=== PATIENT | female | born 1995 | race Hispanic/Latino ===

== ENCOUNTER 2023-10-07 00:47 | Emergency (ER) | payer SELFPAY ==
[2023-10-07 00:48] VITALS: BP 142/78
--- NOTE | 2023-10-07 01:15 | ED.GENMED ---
History of Present Illness
General
Chief Complaint: Weakness
Source: patient
Exam Limitations: none
Time Seen by Provider: 10/07/23 01:01
Travel History
Have you had any contact with someone who has COVID-19?: No
Do you have any symptoms of coronavirus? Fever > 100 degrees, chills, cough, shortness of breath, sore throat, loss of taste or smell, muscle aches, or headache?: No
History of Present Illness
History of Present Illness:
This is a 28 year old male that comes in with c/o body aches. States that a week ago he started with some SOB. States that he had some blurred vision but it went away. States that he then started 2-3 days ago with body aches for which he has taken
Advil with no relief. States that he had some pain in the left lower jaw and was unable to eat for the past couple of days. States that his right eye still felt a little off. States that his left side has always been a little weaker due to his MS.
States that he had chills, chest pain, SOB, slight headache. Denies any fever, abd pain, nausea, vomiting, diarrhea, dizziness, urinary burning.
Past History
Past History
ED Past Medical History: Asthma and Other (MS since age 20 yo with visual changes that he wore glasses for to help correct)
ED Past Surgical History: Appendectomy
Social History
Tobacco: Non-smoker
Alcohol: Occasional
Personal:
Living: with family
Review of Systems
Review of Systems
All Other Systems: ROS reviewed and negative except as documented in HPI and ROS
Constitutional: Reports chills; Denies fever
EENT: Reports other (Left lower jaw pain)
Respiratory: Reports trouble breathing; Denies cough
Cardiac: Reports chest pain
ABD/GI: Reports no symptoms; Denies abdominal pain, nausea, vomiting or diarrhea
: Reports no symptoms; Denies dysuria, frequency or urgency
Musculoskeletal: Reports other (Body aches)
Skin: Reports no symptoms
Neurological: Reports headache; Denies dizzy
Psychiatric: Reports no symptoms
Phy Exam
General Physical Exam
General Presentation: no apparent distress
General age: appears stated age
General Skin: warm and dry
General Habitus: normal
General Mental: alert
General Hydration: appears well hydrated
ENT Exam
ENT Exam: TM's normal, pharynx normal, neck supple and other (Slight redness along the left lower gum line, Negative for any swelling)
Eye Exam
Eye Exam: EOMI
Cardiovascular Exam
Cardiovascular Exam: regular rate/rhythm, no edema, no murmur and normal peripheral pulses
Pulmonary Exam
Pulmonary Exam: lungs clear, no respiratory distress, no rales, chest non tender, no crackles, no rhonchi, no wheezing and no cough
Gastrointestinal Exam
Gastrointestinal Exam: normal bowel sounds, non tender, soft, no organomegaly, no pulsatile mass and non distended
NIH Stroke Score
Level of Consciousness: 0 - Alert
LOC questions: 0-Answers both correctly
LOC Commands: 0-Performs both correctly
Best Gaze: 0-Normal
Visual Casiano: 0=Normal, no visual loss
Facial palsy: 0=Normal, symmetrical
Motor - Right Arm: 0=No drift 10 seconds
Motor - Left Arm: 0=No drift 10 seconds
Motor - Right Le-No drift 5 seconds
Motor - Left Le-No drift 5 seconds
Limb Ataxia: 0-Absent
Sensation: 0-Normal
Best Language: 0-No aphasia
Dysarthria: 0-Normal
Extinction and Inattention: 0-No abnormality
Total Score:: 0
Musculoskeletal Exam
Musculoskeletal Exam: full ROM, no edema and other (Hand grasp slightly decreased left , Push pulls equal)
Skin Exam
Skin Exam: normal color, warm/dry, no rash and no petechia
Psychiatric Exam
Psychiatric Exam: normal mood/affect
Course
Orders/Labs/Results
Orders:
Orders
10/07/23 01:13
Dexamethasone Sod Phosphate [Decadron] 20 mg IV NOW STA
10/07/23 01:15
Electrocardiogram (*1) Urgent
Reason for Study: Chest Pain
EKG- Treatment ONCE
CR Chest - 2 Views Urgent
Comment:
Reason For Exam: sob
10/07/23 01:22
COVID-19 Antigen Urgent
Source: Nasal Swab
Complete Blood Count/With Diff Urgent
Comprehensive Metabolic Panel Urgent
Sed Rate [Erythrocyte Sed Rate] Urgent
Troponin I Urgent
Abnormal Lab Results
10/07/23
01:22
WBC 10.9 H 10^3/uL
(4.8-10.8)
Absolute Lymphs (auto) 4.4 H 10^3/uL
(1.2-3.4)
Absolute Monos (auto) 0.8 H 10^3/uL
(0.1-0.6)
Glucose 132 H mg/dl
(70-99)
ALT 51 H U/L
(0-35)
10/07/23 01:22
10/07/23 01:22
WBC very slightly elevated. Glucose nonfasting. ALT elevated. COVID negative. Sed rate normal at 3, Troponin <0.012
Vital Signs
Initial and Last Documented VS:
Initial Vital Signs
Temp Pulse Resp BP Pulse Ox
98.6 F 74 22 142/78 98
10/07/23 00:48 10/07/23 00:48 10/07/23 00:48 10/07/23 00:48 10/07/23 00:48
Last Documented Vital Signs
Temp Pulse Resp BP Pulse Ox
98.6 F 74 22 142/78 98
10/07/23 00:48 10/07/23 00:48 10/07/23 00:48 10/07/23 00:48 10/07/23 00:48
Chemical Engineer consulted with Physician
Chemical Engineer consulted with physician?: Yes
Name of Physician Consulted: Dr. Fowler
MDM/Problems Addressed
Differential Diagnosis Includes:
MS flare, COVID,
MDM/Problems Addressed:
This is a 28 year old male that comes in with c/o possible MS flare. States that a week ago he started with SOB and blurred vision. States that this went away. Then he started with body aches and he tried for 2-3 days Advil without any relief.
States that he has some pain in the left lower jaw and he has not been eating. States that his right eye still is a little off.
Will check labs, chest x-ray, and give steroids
Back into see patient. States that he is feeling better. Explained that his blood work shows that his Blood sugar is a little elevated and his ALT is elevated. COVID is negative. Chest x-ray is normal and his ECG and Troponin are normal. Explained
to patient that he needs to increase his water intake. Patient to follow up with the Neurologist and get a family doctor. Patient will be place on steroids for the next 5 days to help decrease any inflammation. Patient to return with any concerns .
Chronic conditions affecting care:
MS
Acute Exacerbation and/or Progression of Chronic Illness:
MS
*Radiology
Radiology exam reviewed: preliminary read by ED provider (Chest- Negative for active disease)
*Pulse Oximetry
Patient hypoxic: no
*EKG
Interpreted by ED Provider?: Yes
Heart Rate: 62
Rate: normal
Rhythm: sinus
Arrington: normal axis
Interval: normal interval
QRS Pattern: normal QRS
Ischemia: no ischemia
*Plastic Extrusion Operator Interpretation
Rate: Plastic Extrusion Operator- N/A
*Critical Care Note
Total Time (30-74mins, 75-104mins- exclusive of procedures): Not Applicable
ED Attending Note
-
Portions of this chart may have been created with voice recognition software.� Occasional wrong word or��sound alike� substitutions may have occurred due to the inherent limitations of voice recognition software.
Discharge Plan
Departure
Patient Disposition: Home (Routine Discharge)
Date of Disposition: 10/07/23
Time of Disposition: 02:12
Patient with high blood pressure during this ER visit?: Yes
Condition: Good
Covid-19: Negative COVID-19
Discharge Problem:
Multiple sclerosis exacerbation
Instructions: Multiple Sclerosis, Adult (DC), BLOOD PRESSURE
Prescriptions:
New
prednisone 20 mg tablet
40 mg PO DAILY Qty: 10 0RF
No Action
testosterone
0.2 ml SC WEEKLY
Referrals:
Tone Ivory MD [Active] - Follow up in 5-7 days
NONE,* [Family Provider] -
Activity Restrictions/Additional Instructions:
As discussed, your blood work shows that your blood sugar is a little elevated. Please increase your water intake to 8-8oz glasses daily. You are COVID negative and your chest x-ray is normal. Your ECG is normal along with your Troponin. This may be
an MS flare. You have been given IV steroids here and a prescription for steroids has been sent to your Pharmacy. Please take as directed. Follow up with the the Neurologist and our need to get a family doctor for further evaluation and follow up.
IF YOU HAVE INCREASED PAIN, WEAKNESS, OR YOU HAVE ANY OTHER CONCERNS PLEASE RETURN TO THE EMERGENCY ROOM.
Interventions
Interventions:
*Risk Screen - Suicide Last Done: 10/07/23 00:48
*Neglect/Abuse Screening Last Done: 10/07/23 00:48
Discharge Date and Time
Print Language: SAMOAN
[2023-10-07] MEDS: DECADRON 20 MG IV (01:36)
[2023-10-07 01:39] LABS: % Basophils 0.3 % (0-2); % Immature Granulocytes 0.3 % (0-0.5); % Lymphocytes 39.9 % (20.5-51.1); % Monocytes 6.9 % (1.7-9.3); % Neutrophils 50.6 % (42.2-75.2); Absolute Eosinophils 0.2 10^3/uL (0-0.7); Absolute Lymphocytes 4.4 10^3/uL (1.2-3.4); Absolute Monocytes 0.8 10^3/uL (0.1-0.6); Absolute Neutrophils 5.5 10^3/uL (1.4-6.5); Hematocrit 41.3 % (37.0-47.0); Hemoglobin 14.7 g/dL (12.0-16.0); Mean Corp Hgb Conc. 35.6 g/dL (33.0-37.0); Mean Corpuscular Hgb 29.2 pg (27.0-31.0); Mean Corpuscular Volume 81.9 fL (81.0-99.0); Mean Platelet Volume 10.3 fL (7.4-10.4); Nucleated Red Blood Cells % 0 %; Platelet Count 277 10^3/uL (130-400); Red Blood Cell Count 5.04 10^6/uL (4.20-5.40); Red Cell Dist. Width 13.2 % (11.5-14.5); White Blood Cell Count 10.9 10^3/uL (4.8-10.8)
[2023-10-07 01:42] VITALS: BMI 33.7
[2023-10-07 01:47] LABS: Erythrocyte Sed Rate 3 mm/hour (0-20)
[2023-10-07 01:54] LABS: ALT (SGPT) 51 U/L (0-35); AST (SGOT) 27 U/L (14-36); Albumin 4.4 g/dl (3.5-5.0); Alkaline Phosphatase 96 U/L (38-126); Blood Urea Nitrogen 14 mg/dl (7-17); COVID-19 Antigen Negative (Negative); Calcium 9.3 mg/dl (8.4-10.2); Carbon Dioxide 22 mmol/L (22-30); Chloride 105 mmol/L (98-107); Estimated Creatinine Clearance > 125 ml/min; Glucose 132 mg/dl (70-99); Sodium 136 mmol/L (135-145); Total Bilirubin 0.5 mg/dl (0.2-1.3); Total Protein 7.4 g/dl (6.3-8.2); eGFR > 60.00
[2023-10-07 01:56] VITALS: BP 111/63
[2023-10-07 02:00] VITALS: BP 120/76
[2023-10-07 02:02] LABS: Troponin I < 0.012 ng/ml
== END 2023-10-07 02:20 | disposition home or self-care (01) ==
LOC: EMR 00:47
PROVIDERS: Clinical Nurse Specialist Family Health; EMERGENCY PHYSICIAN Emergency Medicine
DX: R53.1 Weakness (principal); R06.02 Shortness of breath; J45.909 Unspecified asthma, uncomplicated; G35 Multiple sclerosis; Z90.49 Acquired absence of other specified parts of digestive tract
CPT/HCPCS: 99283; 96374; 71046; 80053; 84484; 85025; 85652; 87811; 93005

== ENCOUNTER 2023-12-11 04:02 | Inpatient (IN) | payer OTHER, SELFPAY ==
[2023-12-11] VITALS (10 sets, daily range): BP systolic 108–147; BP diastolic 63–90; PULSE 94–97; O2SAT 97; BMI 36.3; BMI 33.2
--- NOTE | 2023-12-11 01:09 | ED.GENMED ---
History of Present Illness
General
Chief Complaint: Visual Problem
Source: patient
Exam Limitations: none
Time Seen by Provider: 12/11/23 00:33
Travel History
Have you had any contact with someone who has COVID-19?: No
Do you have any symptoms of coronavirus? Fever > 100 degrees, chills, cough, shortness of breath, sore throat, loss of taste or smell, muscle aches, or headache?: No
History of Present Illness
History of Present Illness:
This is a 28 year old male that comes in with c/o visual changes. States that over the past 2 days he has visual changes. States that is is a mix of blurred and double ision. States that when he has an MS flare this is usually how it presents.
States that he was here in September and he was given steroids and this helped. States that he felt it was hard to take a deep breath. States that he has a headache with the dizziness. Denies any fever, chills, chest pain, SOB, abd pain, nausea,
vomiting, diarrhea, urinary burning.
Past History
Past History
ED Past Medical History: Asthma and Other (MS since age 20 yo with visual changes that he wore glasses for to help correct)
ED Past Surgical History: Appendectomy
Social History
Tobacco: Smoker
Alcohol: None
Personal:
Living: with family
Review of Systems
Review of Systems
All Other Systems: ROS reviewed and negative except as documented in HPI and ROS
Constitutional: Reports no symptoms; Denies fever or chills
EENT: Reports other (Visual changes)
Respiratory: Reports no symptoms; Denies cough or trouble breathing
Cardiac: Reports no symptoms; Denies chest pain
ABD/GI: Reports no symptoms; Denies abdominal pain, nausea, vomiting or diarrhea
: Reports no symptoms; Denies dysuria, frequency or urgency
Musculoskeletal: Reports no symptoms
Skin: Reports no symptoms
Neurological: Reports dizzy and headache
Psychiatric: Reports no symptoms
Phy Exam
General Physical Exam
General Presentation: no apparent distress
General age: appears stated age
General Skin: warm and dry
General Habitus: normal
General Mental: alert
General Hydration: appears well hydrated
ENT Exam
ENT Exam: TM's normal, pharynx normal and neck supple
Eye Exam
Eye Exam: PERRL and EOMI
Cardiovascular Exam
Cardiovascular Exam: regular rate/rhythm, no edema, no murmur and normal peripheral pulses
Pulmonary Exam
Pulmonary Exam: lungs clear, no respiratory distress, no rales, chest non tender, no crackles, no rhonchi, no wheezing and no cough
Gastrointestinal Exam
Gastrointestinal Exam: normal bowel sounds, non tender, soft, no organomegaly, no pulsatile mass and non distended
NIH Stroke Score
Level of Consciousness: 0 - Alert
LOC questions: 0-Answers both correctly
LOC Commands: 0-Performs both correctly
Best Gaze: 0-Normal
Visual Casiano: 1=Partial hemianopia (Left sided)
Facial palsy: 0=Normal, symmetrical
Motor - Right Arm: 0=No drift 10 seconds
Motor - Left Arm: 0=No drift 10 seconds
Motor - Right Le-No drift 5 seconds
Motor - Left Le-No drift 5 seconds
Limb Ataxia: 0-Absent
Sensation: 1-Mild loss (Left sided)
Best Language: 0-No aphasia
Dysarthria: 0-Normal
Extinction and Inattention: 0-No abnormality
Total Score:: 2
Musculoskeletal Exam
Musculoskeletal Exam: full ROM, no edema and other (Left hand grasp and push pulls weaker on the left. )
Skin Exam
Skin Exam: normal color, warm/dry, no rash and no petechia
Psychiatric Exam
Psychiatric Exam: normal mood/affect
Course
Orders/Labs/Results
Orders:
Orders
12/11/23 01:07
Dexamethasone Sod Phosphate [Decadron] 20 mg IV NOW STA
12/11/23 01:08
CT Head W/o Iv Contrast Urgent
Comment: History of MS
Reason For Exam: Visual changes.,Headache, dizziness
12/11/23 01:30
Complete Blood Count/With Diff Urgent
Comprehensive Metabolic Panel Urgent
Abnormal Lab Results
12/11/23
01:30
Absolute Lymphs (auto) 4.3 H 10^3/uL
(1.2-3.4)
Absolute Monos (auto) 0.7 H 10^3/uL
(0.1-0.6)
Creatinine 0.5 L mg/dL
(0.6-1.0)
Glucose 103 H mg/dl
(70-99)
ALT 51 H U/L
(0-35)
12/11/23 01:30
12/11/23 01:30
Glucose nonfasting. ALT mildly elevated.
Vital Signs
Initial and Last Documented VS:
Initial Vital Signs
Temp Pulse Resp BP Pulse Ox
99.1 F 55 16 128/78 99
12/11/23 00:17 12/11/23 00:17 12/11/23 00:17 12/11/23 00:17 12/11/23 00:17
Last Documented Vital Signs
Temp Pulse Resp BP Pulse Ox
99.1 F 55 16 128/78 99
12/11/23 00:17 12/11/23 00:12/11/23 00:17 12/11/23 00:17 12/11/23 00:17
MDM/Problems Addressed
Differential Diagnosis Includes:
MS flare,
MDM/Problems Addressed:
This is a 28 year old male that comes in with c/o visual changes. States that he is having a MS flare. States that he is unable to see a Neurologist until April. States that over the past 2 days he has visual changes. States that it is a mix of
seeing double or blurred.
Will get labs, CT head and give IV steroids.
Back into see patient. Explained that his blood work shows that his One liver enzyme is slightly elevated. CT is similar to prior CT. However, Explained to patient that with the visual changes and the left sided weakness it would be better to stay
in the hospital for further evaluation and see Neurologist. Will admit. Hospitalist notified.
Chronic conditions affecting care:
MS
Acute Exacerbation and/or Progression of Chronic Illness:
MS
*Radiology
Radiology exam reviewed: radiology read reviewed (CT head night hawk- Compared to 07/18/2022 No evidence of acute intracranial abnormality. NO evidenece of Hemorrhage or mass. Occasional periventricular regions of low attenuation likely patient's
known history of MS. IF indicated MRi has higher sensitivity in determining activity. Ventricles and) and other (CT cont- sulci are unremarkable. Bones are unremarkable Sinuses are unremarkable. )
*Pulse Oximetry
Patient hypoxic: no
*EKG
Interpreted by ED Provider?: NA
Rate: EKG- N/A
*Salesperson [employer]ra[employer] Interpretation
Rate: Salesperson [employer]ra[employer]- N/A
*Critical Care Note
Total Time (30-74mins, 75-104mins- exclusive of procedures): Not Applicable
ED Attending Note
-
Portions of this chart may have been created with voice recognition software.� Occasional wrong word or��sound alike� substitutions may have occurred due to the inherent limitations of voice recognition software.
Discharge Plan
Departure
Patient Disposition: Admit
Date of Disposition: 12/11/23
Time of Disposition: 02:43
Admit to: Med/Surg
Presentation/result/management discussed w/ accepting MD/DO: Hospitalist
Patient with high blood pressure during this ER visit?: No
Condition: Good
Covid-19: Not Applicable
Discharge Problem:
Multiple sclerosis exacerbation, Acute left-sided weakness, Vision changes
Prescriptions:
No Action
testosterone
0.2 ml SC WEEKLY
prednisone 20 mg tablet
40 mg PO DAILY Qty: 10 0RF
Referrals:
Yen Mejia DO [Family Provider] -
Interventions
Interventions:
*Risk Screen - Suicide Last Done: 12/11/23 00:17
*General Assessment Last Done: 12/11/23 00:17
*Neglect/Abuse Screening Last Done: 12/11/23 00:17
ED-EENT Assessment Last Done: 12/11/23 01:57
Discharge Date and Time
Print Language: LUXEMBOURGISH
[2023-12-11] MEDS: DECADRON 20 MG IV (01:23)
[2023-12-11 01:40] LABS: % Basophils 0.3 % (0-2); % Immature Granulocytes 0.4 % (0-0.5); % Lymphocytes 43.7 % (20.5-51.1); % Monocytes 6.7 % (1.7-9.3); % Neutrophils 45.9 % (42.2-75.2); Absolute Eosinophils 0.3 10^3/uL (0-0.7); Absolute Lymphocytes 4.3 10^3/uL (1.2-3.4); Absolute Monocytes 0.7 10^3/uL (0.1-0.6); Absolute Neutrophils 4.5 10^3/uL (1.4-6.5); Hematocrit 40.6 % (37.0-47.0); Hemoglobin 14.7 g/dL (12.0-16.0); Mean Corp Hgb Conc. 36.2 g/dL (33.0-37.0); Mean Corpuscular Hgb 29.6 pg (27.0-31.0); Mean Corpuscular Volume 81.9 fL (81.0-99.0); Nucleated Red Blood Cells % 0 %; Platelet Count 291 10^3/uL (130-400); Red Blood Cell Count 4.96 10^6/uL (4.20-5.40); Red Cell Dist. Width 12.7 % (11.5-14.5); White Blood Cell Count 9.8 10^3/uL (4.8-10.8)
[2023-12-11 02:11] LABS: ALT (SGPT) 51 U/L (0-35); AST (SGOT) 32 U/L (14-36); Albumin 4.6 g/dl (3.5-5.0); Alkaline Phosphatase 89 U/L (38-126); Blood Urea Nitrogen 15 mg/dl (7-17); Calcium 9.6 mg/dl (8.4-10.2); Carbon Dioxide 24 mmol/L (22-30); Chloride 105 mmol/L (98-107); Glucose 103 mg/dl (70-99); Potassium 4.1 mmol/L (3.5-5.1); Sodium 140 mmol/L (135-145); Total Bilirubin 0.5 mg/dl (0.2-1.3); Total Protein 7.5 g/dl (6.3-8.2); eGFR > 60.00
--- NOTE | 2023-12-11 03:02 | HPS.HSE ---
Family Physician
-
Family Physician: Yen Mejia DO
Chief Complaint
-
Altered vision
History of Present Illness
28M HX MS seen at ER for altered vision
Evaluation for altered vision:
- described as blurred and double vision simiar to prior episode og MS flare
- Received Hi dose steroids in September 2023 and helped
- Reports GARDINER with dizziness
- denied retro orbital pain
- No paresthesia or focal weakness
ROS
Denies any fever, chills, chest pain, SOB,
Medical History
Past Medical History
Past Medical History: Reports Other (multiple sclerosis)
Past Surgical History: Reports Other
Social History
Tobacco: Non-smoker
Alcohol: None
Family History
Family History: Not pertinent
Allergies / Home Medications
Allergies reflects when Allergies were last updated in [facility].
Home Medications with original date entered in [facility]
Allergy/Medication List:
Allergies
Allergy/AdvReac Type Severity Reaction Status Date / Time
No Known Allergies Allergy Verified 07/17/22 22:53
Home Medications
none - patient denies taking home medications
Review of Systems
-
Constitutional: Reports No Symptoms
EENT: Reports See HPI
Respiratory: Reports No Symptoms
Cardiac: Reports No Symptoms
Abdomen/GI: Reports No Symptoms
: Reports No Symptoms
Musculoskeletal: Reports No Symptoms
Skin: Reports No Symptoms
Neurological: Reports No Symptoms
Endocrine: Reports No Symptoms
Hematologic/Lymphatic: Reports No Symptoms
Psych: Reports No Symptoms
Physical Exam
Vital Signs
Vital Signs
Temp Pulse Resp BP Pulse Ox
99.1 F 55 16 128/78 99
12/11/23 00:17 12/11/23 00:17 12/11/23 00:17 12/11/23 00:17 12/11/23 00:17
Physical Exam
General: Well Developed and No Apparent Distress
HEENT: PERRLA and Other (right eye lateral vision loss)
Respiratory: Clear; No Wheezes
Cardiac: S1/S2 and Regular Rhythm
GI: Soft and Non Tender
Musculoskeletal: No Edema and Other (weakness in Lt both ext )
Skin: Warm and Dry; No Rash
Neuro: AO x 3 and Other (5/5 strength b/l upper and lower extremities, clear speech, no facial asymmetry )
Psych: Calm
Laboratory Results
-
12/11/23 01:30
12/11/23 01:30
Laboratory Results
Total Bilirubin 0.5 mg/dl (0.2-1.3) 12/11/23 01:30
AST 32 U/L (14-36) 12/11/23 01:30
ALT 51 U/L (0-35) H 12/11/23 01:30
Alkaline Phosphatase 89 U/L (38-126) 12/11/23 01:30
Data Reviewed
-
CT Scan: Report Reviewed by me
Lab Data: Labs Reviewed by me
Old Records: Reviewed
Impression/Plan
-
Reviewed VS: T 99.1 HR 55 BP 128/78 POx 99
NIH Stroke Score per ER evaluation
Visual Casiano: 1=Partial hemianopia (Left sided)
Sensation: 1-Mild loss (Left sided)
Total Score:: 2
Data
Unremarkable CBC
Unremarkable BMP
ALT 51
Unenhanced HCT : No acute pathology
07/18/22 MR Brain W/o & With Contrast
Slightly progressed white matter lesions in keeping with demyelinating lesions of multiple sclerosis, compared to prior exam 12/20/2018. No suspicious enhancement.
No acute intracranial process.
Last hospitalist admission: 07/18/22- 07/18/22 Dx: Complex migraine with aura.
ASSESSMENT & PLAN
Altered vision wit GARDINER with Lt sided paraesthesia and weakness in bith exts : MS flare >>> Complex migraine with aura.
Multiple sclerosis HX
- IV Decadron 20 mg x1 at ER
- MRI brain with and without contrast in AM
- Neurology consult
Chronic borderline elevated ALT
Otherwise unremarkable AST and TB
DVT Px: LMWH
Code: full
Ip MS
--- NOTE | 2023-12-11 08:06 | CON.NEURO4 ---
Consultation - Neurology 4
-
CONSULTING PHYSICIAN: Donald Walsh
REFERRING PHYSICIAN: Hospitalist
DICTATED BY: Donald Walsh
DATE/TIME OF REQUEST: 12/11/23
DATE/TIME OF CONSULTATION: 12/11/23
Reason for Consultation: Vision changes, history of multiple sclerosis as well as migraines
History of Present Illness:
Patient is a 28-year-old man presenting the hospital with vision changes seem to be predominantly blurred vision as well as double vision which was monocular occurring over the past couple of days. Has had some headache as well as some mild
photophobia and phonophobia recently.
Relates a history of diagnosis of multiple sclerosis around the age of 19 he has some chronic left arm and leg weakness and sensory changes a result of this. He had been on Copaxone for a number of years but due to insurance difficulties in moving
to [place] from [place] has not been able to be on any immune medications for multiple sclerosis.
Patient reports that the double vision is monocular and can happen with either eye covered.
Occasionally will get headaches which have photophobia which are mildly disabling.
Has seen a little bit of worsening of chronic left arm and leg weakness. Feeling some dizziness when standing up as well. No changes in bowel or bladder function
Past Medical History: Multiple sclerosis, migraine headaches
Surgical History: None
Family History: Non-contributory
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
Allergies: No known drug allergies
Review of Symptoms:
Patient denies any fever, headache, chest pain, shortness of breath, GI or symptoms.
Physical Exam:
Well-appearing young man no signs of head or neck trauma no acute distress eyes are clear oropharynx is clear, neck supple no masses heart rate regular breathing unlabored abdomen no tenderness, no lower extremity edema rash
Neurologic Examination:
The patient is awake, alert and oriented x 3. He is able to follow commands and answer questions appropriately. There is no aphasia or dysarthria. On cranial nerve assessment, pupils are 3 mm bilateral, round and reactive to light and
accommodation. Visual oleary are full. Vision 20/30 in left eye, 20/20 in right eye, no APD, Extraocular movements are intact no pain with EOM's. Facial sensations are intact and bilaterally symmetrical, there is no facial asymmetry. Hearing is
intact bilaterally to normal conversation volume. Tongue palate and uvula are midline. Sternocleidomastoid strengths are full bilaterally. Motor strengths are 5/5 bilateral upper and lower extremities on medical research [place] scale. There is no
drift or involuntary movement noted. Deep tendon reflexes are 2+ bilateral upper and lower extremities and Babinski is absent bilaterally. Sensations of pain, touch, temperature and vibration are intact and bilaterally symmetrical. There was no
extinction noted on double simultaneous stimulation. Coordination is intact by finger to nose bilaterally. Gait normal.
Neuro Imaging: MRI brain pending
Impressions
1. Migraine headache with visual auras felt most likely given patient's description of monocular diplopia along with headache and mild photophobia. Differential diagnosis would include brainstem lesion due to multiple sclerosis. Doubtful an
optic neuritis
2. History of multiple sclerosis previously on Copaxone not currently on any immune medications
Recommendations:
1. Sumatriptan 2 doses
2. Give one dose IV steroid
3. Check MRI brain with and without contrast
Discussed patient care with: Patient
[2023-12-11] MEDS: SOLU-MEDROL 258 MG IV (09:19)
[2023-12-11] MEDS: MAXALT MLT (ORALLY DISINTEGRATING) 10 MG PO ×2 (09:20→12:41)
--- NOTE | 2023-12-11 11:07 | W.PN.UPDATE ---
Update Note
Progress Note Update
Seen and examined independent of overnight physician. States remains with blurry vision. States appointments over the past 2 days. States usually happens during her MS flareup. States of ambulatory dysfunction at times at home.
General: Well Developed and No Apparent Distress
HEENT: PERRLA
Respiratory: Clear; No Wheezes
Cardiac: S1/S2 and Regular Rhythm
GI: Soft and Non Tender
Musculoskeletal: No Edema
Skin: Warm and Dry; No Rash
Neuro: AO x 3 and Other (5/5 strength b/l upper and lower extremities, clear speech, no facial asymmetry )
Psych: Calm
ASSESSMENT & PLAN
Altered vision wit GARDINER with Lt sided paraesthesia likely secondary to MS flareup versus low likelihood of complex migraine
Headache secondary to migraine
Multiple sclerosis HX
-20 mg of Decadron in the ER. Additional 1 g Solu-Medrol provided earlier today. Further steroids per neurology. Will probably need await further brain imaging with MRI to decide if needed further
- MRI brain with and without contrast
- Neurology consult
Chronic borderline elevated ALT
Otherwise unremarkable AST and TB
Vitamin D deficiency�continue with p.o. supplementation
DVT Px: LMWH
Code: full
--- NOTE | 2023-12-11 15:51 | CM ---
Patient off the unit in MRI; initial assessment completed with his significant otherRichard
Pharmacy verified: [facility], [address], [place]
Significant other reported that she, patient, and 11 year old daughter live in a one floor apartment ([address]); 11 steps up to enter apartment, railing present; bathroom has tub w/shower
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
SNF/Rehab/Home Health utilization history: none recently
Transportation: significant other will provide ride home
Plan: discharge to home when medically stable; CM will monitor for DC needs
[2023-12-11] MEDS: LOVENOX 40 MG SC (17:34)
[2023-12-12 05:25] VITALS: BMI 33.8
[2023-12-12 07:30] VITALS: BP 125/75
[2023-12-12 08:38] VITALS: BP 125/75
--- NOTE | 2023-12-12 09:00 | CON.NEURO4 ---
Addendum entered and electronically signed by Fernie Walsh MD 12/12/23 12:47:
I saw and evaluated the patient I reviewed the note by Silvana Gu agree the findings the following comments:
28-year-old man with a past ministry of multiple sclerosis and migraines presented to hospital with headache and vision changes and some mild left arm and leg weakness. Patient does feel improved still having a little bit of blurred vision in the
left eye minimal headache at this point no nausea, some mild photophobia present.
Neurologic examination significant only for some 20/30 vision in the left eye no APD, right eye is 20/20, visual oleary normal, otherwise neurologic exam normal.
MRI brain with without contrast reviewed there is no contrast-enhancing lesions there are numerous changes of demyelinating disease but no new active lesions
Assessment: Likely a migraine aura with visual changes, no evidence that this is a flare of multiple sclerosis
Recommendations
-Will provide home prescription of sumatriptan and I educated them on appropriate use of this and not to use more than 2 days of the week
-Would use Tylenol and ibuprofen for the next 3 days but no longer, get plenty of rest and I feel will improve from this migraine
-No further steroids
-No barriers to discharge from my POV
Original Note:
Documented by User: Silvana Guerrero NP 12/12/23 12:36
Consultation - Neurology 4
-
CONSULTING PHYSICIAN: Donald Walsh MD
REFERRING PHYSICIAN: Hospitalists/Dr. Ramos
DICTATED BY: NAINA Dean
DATE/TIME OF REQUEST: 12/11/23
DATE/TIME OF CONSULTATION: 12/12/23
Reason for Consultation: Vision changes
History of Present Illness:
This is a 28-year-old right-handed male with a PMH of multiple sclerosis who has presented to the hospital with report of headache, blurred vision, diplopia, and left-sided numbness/weakness. Patient has been previously evaluated by our inpatient
Neurology service twice in the past for similar symptoms, once in 2019 at which time MRI brain demonstrates an active lesion, and again in June 2022 at which time MRI brain was negative for any active lesions.
From previous evaluation by Dr. Ivory on 07/18/22:
'Right-handed
From my esteemed colleagues consultation in 2019:
23-year-old male with a known history of multiple sclerosis presents for evaluation for diminished sensation in his left lower extremity that he states began yesterday evening as well as severe weakness in the left lower extremity that began this
morning around 6 AM. He is so weak that he cannot walk. He states that he was diagnosed with multiple sclerosis at age 20. He was initially diagnosed after an episode of optic neuritis in the left eye. He subsequently had another episode of
optic neuritis, this time affecting the right eye. He states that he received steroids for these episodes in the past and tolerated the steroids well. He is been on Copaxone since these episodes and denies any further exacerbations while on the
med. He denies any known spinal cord lesions and states that the majority of his white matter lesions are in the left side of the brain. He has been living here for the past few months and was previously following with a neurologist in [place].
He has been out of Copaxone for 2 months.
Subsequent evaluation by MRI of the brain and entire spine with and without contrast in 2019 indicated enhancement left posterior and superior parietal lobe as well as the right anterolateral tortio.
Patient reports a complete normalization with above symptoms after the 2019 flare.
(07/18/22):
Reportedly, the patient had a recurrent episode of flare of multiple sclerosis treated at a local outside hospital 2 years ago. Flare at that time did receive treatment with IV steroids for left eye and left-sided sensory loss.
Patient is more likely to have exacerbation with heat exposure and stress.
The patient returned to this hospital's emergency department last evening due to progressive right eye blurred vision for the past week, worsening in the last 2 days. On the day of admission, there was worsening of vision on the right hemifield.
This problem was similar to loss of vision on the left eye. Headache started 7 days ago location frontal or posterior, throbbing, blurred vision with headache. Headache frequency monthly. Duration of 2-3 days with OTC medication. Associated with
headaches are photophobia, phonophobia, no nausea, no emesis. Patient's headache is described as currently a 5 out of 10 in intensity.
Glatiramer acetate has not been restarted in the past 4 years.
Since hospitalization, vision has improved.'
Today (12/12/23), patient reports that he improved back to his baseline after his last hospitalization here in June 2022, but he does have chronic slight left-sided weakness and intermittent slurred speech at baseline since age 20. He reports
that he finally was able to get insurance and an outpatient appointment with Neurology Dr. Forde at [facility], but the earliest he could get in is April 2024. He is still not on any MS DMT and has not been on Copaxone in several years now. He
has never been on any DMTs other than Copaxone. He reports that the last time he was on oral steroids for 10 days he became severely depressed. Patient reports that four days ago on 12/08/23 he developed a mild headache associated with blurry vision
left eye>right eye and diplopia. As the week progressed, he reports that his chronic left-sided weakness/numbness, slurred speech, blurry vision, and diplopia worsened. He describes the diplopia as diagonal with the object on the left higher than
the object on the right. The diplopia did not resolve when he closed one eye or the other. He also noted mild left facial drooping. He has needed to furniture-reach or hold onto his when ambulating to avoid falling due to his left leg weakness.
On 12/11/23 he decided to come to the ER for evaluation when his symptoms still hadn't improved. CT head was obtained in the ER and is negative for any acute abnormalities. He endorsed a 6/10 headache in the ER and received Imitrex with some relief
of his headache and visual symptoms. Today (12/12/23), he reports that his right eye has returned to normal, his left eye vision is still mildly blurry, diplopia has resolved, and his left leg still feels mildly numb/weak. He denies any dizziness,
speech/swallow difficulty, nausea, chest pain, palpitations, and shortness of breath. He endorses photo/phonophobia. He reports having 1-2 migraine days per month associated with phono/photophobia but no nausea/vomiting. He has more mild headaches
4-5 days per week. He is taking Excedrin migraine 4-5x per week for his headaches, with relief. He has taken triptans in the past with relief, he has never been on any preventative headache medications.
Past Medical History: Multiple sclerosis, migraines, asthma
Surgical History: Appendectomy
Family History: Review and noncontributory.
Social History: Current smoker. Denies
Allergies: No known allergies.
Home Medications: See below.
Review of Symptoms:
Patient denies any fever, chest pain, shortness of breath, GI or symptoms.
�Per the HPI.�All systems are reviewed negative except above.
Physical Exam:
The patient is afebrile, abdomen is nondistended, breathing is unlabored, skin is warm and dry, no edema.
Neurologic Examination:
The patient is awake, alert and oriented x 3. He is able to follow commands and answer questions appropriately. There is no aphasia or dysarthria. On cranial nerve assessment, pupils are 3 mm bilateral, round and reactive to light and
accommodation. Visual oleary are full. Visual acuity right eye 20/20, left eye 20/30. Extraocular movements are intact. Facial sensations are intact and bilaterally symmetrical, there is no facial asymmetry. Hearing is intact bilaterally to normal
conversation volume. Tongue palate and uvula are midline. Sternocleidomastoid strengths are full bilaterally. Motor strengths are 5/5 right upper, 5-/5 left upper, 5/5 right lower, and 4+/5 left lower extremities on medical research [place] scale.
There is no drift or involuntary movement noted. Deep tendon reflexes are 1+ bilateral upper and lower extremities and Babinski is absent bilaterally. Sensations of touch, temperature and vibration are mildly reduced in the left face, arm, and leg.
There was no extinction noted on double simultaneous stimulation. Coordination is intact by finger to nose bilaterally.
Lab Results: See below.
Neuro Imaging:
1. CT head 12/11/23: There are no focal or acute intracranial abnormalities. There is mild diffuse focal atrophy.
2. MRI brain w/ and w/o contrast 12/11/23: Redemonstration of extensive demyelinating disease in the cerebral white matter, right cerebellar hemisphere, brachium pontis bilaterally, right mid torito. Appearance consistent with given clinical history of
multiple sclerosis. Slight progression since previous MRI. No enhancement by any of the lesions to suggest active demyelination.
Differentials for the patient's presentation include:
1. Migraine with aura likely exacerbating chronic MS symptoms.
2. MRI brain negative for active MS lesion.
Patient has the following risk factors for their symptoms: MS, migraines
Recommendations:
-Provide script for Imitrex 100mg PO as an outpatient, may repeat dose x1 in 2 hours if doesn't have complete GARDINER relief. Limit Imitrex usage to 2 days a week to avoid rebound headache.
-May also take tylenol/ibuprofen PRN headache for no more than 3 days for migraine relief.
-Do not see a role for further neurological imaging.
-Patient requesting a script for a rolling walker at home, has a cane already.
-Follow-up with outpatient Neurology appointment, on cancelation list for sooner appointment.
Discussed patient care with: Dr. Walsh, the patient, patient's spouse
Vital Signs and Labs
-
Vital Signs and Labs:
Vital Signs
Temp Pulse Resp BP Pulse Ox
97.9 F 95 19 125/75 97
12/12/23 07:30 12/12/23 07:30 12/12/23 07:30 12/12/23 07:30 12/12/23 07:30
Lab Results
12/12/23 08:23
12/12/23 08:23
Sodium 138 mmol/L (135-145) 12/12/23 08:23
Potassium 4.2 mmol/L (3.5-5.1) 12/12/23 08:23
BUN 14 mg/dl (7-17) 12/12/23 08:23
Glucose 145 mg/dl (70-99) H 12/12/23 08:23
Calcium 10.0 mg/dl (8.4-10.2) 12/12/23 08:23
Medications
-
Active Medications
Generic Name Dose Route Start Last Admin
Trade Name Freq PRN Reason Stop Dose Admin
Acetaminophen 650 mg 12/11/23 06:51
Acetaminophen 325 Mg Tablet PO 01/08/24 06:50
Q4HPRN PRN
mild pain/GARDINER/temp> 100.4F
Bisacodyl 10 mg 12/11/23 06:51
Bisacodyl 10 Mg Rectal Suppository RECTAL 01/08/24 06:50
T02ALKS PRN
constipation
Enoxaparin Sodium 40 mg 12/11/23 18:00 12/11/23 17:34
Enoxaparin Sodium 40 Mg/0.4 Ml Syringe SC 01/08/24 17:59 40 mg
QPM TABITHA Administration
Polyethylene Glycol 17 grams 12/11/23 06:51
Polyethylene Glycol Powder 17 Grams Packet PO 01/08/24 06:50
DAILYPRN PRN
constipation
Senna/Docusate Sodium 1 tablet 12/11/23 06:51
Docusate W/Senna (Sultana-Colace) Tablet PO 01/08/24 06:50
BIDPRN PRN
constipation
Sodium Chloride 0 flush 12/11/23 07:00
Sodium Chloride 0.9% (Flush) Syringe IV 01/08/24 06:59
PER PROTOCOL TABITHA
Sodium Chloride 0 flush 12/11/23 09:00
Sodium Chloride 0.9% (Flush) Syringe IV 01/08/24 08:59
PER PROTOCOL TABITHA
Home Medications
�Medication �Instructions �Recorded
cholecalciferol (vitamin D3) 25 25 mcg PO DAILY Supplement 12/11/23
mcg (1,000 unit) tablet (Vitamin
D3)
cyanocobalamin (vitamin B-12) 500 500 mcg PO DAILY Supplement 12/11/23
mcg tablet
ferrous sulfate 324 mg (65 mg 324 mg PO DAILY Supplement 12/11/23
iron) tablet,delayed release
ibuprofen 200 mg tablet (Advil) 200 mg PO Q6HPRN PRN mild pain 12/11/23
testosterone cypionate 200 mg/mL 100 mg IM SA Hormonal Agent 12/11/23
intramuscular oil

Documented by User: Fernie Walsh MD 12/12/23 12:43
Consultation - Neurology 4
-
Neurology progress note
History of Present Illness:
This is a 28-year-old right-handed male with a PMH of multiple sclerosis who has presented to the hospital with report of headache, blurred vision, diplopia, and left-sided numbness/weakness. Patient has been previously evaluated by our inpatient
Neurology service twice in the past for similar symptoms, once in 2018 at which time MRI brain demonstrates an active lesion, and again in June 2022 at which time MRI brain was negative for any active lesions.
Physical Exam:
The patient is afebrile, abdomen is nondistended, breathing is unlabored, skin is warm and dry, no edema.
Neurologic Examination:
The patient is awake, alert and oriented x 3. He is able to follow commands and answer questions appropriately. There is no aphasia or dysarthria. On cranial nerve assessment, pupils are 3 mm bilateral, round and reactive to light and
accommodation. Visual oleary are full. Visual acuity right eye 20/20, left eye 20/30. Extraocular movements are intact. Facial sensations are intact and bilaterally symmetrical, there is no facial asymmetry. Hearing is intact bilaterally to normal
conversation volume. Tongue palate and uvula are midline. Sternocleidomastoid strengths are full bilaterally. Motor strengths are 5/5 right upper, 5-/5 left upper, 5/5 right lower, and 4+/5 left lower extremities on medical research [place] scale.
There is no drift or involuntary movement noted. Deep tendon reflexes are 1+ bilateral upper and lower extremities and Babinski is absent bilaterally. Sensations of touch, temperature and vibration are mildly reduced in the left face, arm, and leg.
There was no extinction noted on double simultaneous stimulation. Coordination is intact by finger to nose bilaterally.
Lab Results: See below.
Neuro Imaging:
1. CT head 12/11/23: There are no focal or acute intracranial abnormalities. There is mild diffuse focal atrophy.
2. MRI brain w/ and w/o contrast 12/11/23: Redemonstration of extensive demyelinating disease in the cerebral white matter, right cerebellar hemisphere, brachium pontis bilaterally, right mid torito. Appearance consistent with given clinical history of
multiple sclerosis. Slight progression since previous MRI. No enhancement by any of the lesions to suggest active demyelination.
Differentials for the patient's presentation include:
1. Migraine with aura likely exacerbating chronic MS symptoms.
2. MRI brain negative for active MS lesion.
Patient has the following risk factors for their symptoms: MS, migraines
Recommendations:
-Provide script for Imitrex 100mg PO as an outpatient, may repeat dose x1 in 2 hours if doesn't have complete GARDINER relief. Limit Imitrex usage to 2 days a week to avoid rebound headache.
-May also take tylenol/ibuprofen PRN headache for no more than 3 days for migraine relief.
-Do not see a role for further neurological imaging.
-Patient requesting a script for a rolling walker at home, has a cane already.
-Follow-up with outpatient Neurology appointment, on cancelation list for sooner appointment.
Discussed patient care with: Dr. Walsh, the patient, patient's spouse
[2023-12-12 09:08] LABS: % Basophils 0.2 % (0-2); % Immature Granulocytes 0.7 % (0-0.5); % Neutrophils 84.1 % (42.2-75.2); Absolute Immature Granulocytes 0.1 10^3/uL (0-0.05); Absolute Lymphocytes 2.1 10^3/uL (1.2-3.4); Absolute Monocytes 0.8 10^3/uL (0.1-0.6); Absolute Neutrophils 15.8 10^3/uL (1.4-6.5); Hematocrit 43.6 % (37.0-47.0); Hemoglobin 15.2 g/dL (12.0-16.0); Mean Corp Hgb Conc. 34.9 g/dL (33.0-37.0); Mean Corpuscular Hgb 29.3 pg (27.0-31.0); Mean Platelet Volume 10.4 fL (7.4-10.4); Nucleated Red Blood Cells % 0 %; Platelet Count 341 10^3/uL (130-400); Red Blood Cell Count 5.19 10^6/uL (4.20-5.40); Red Cell Dist. Width 12.6 % (11.5-14.5); White Blood Cell Count 18.8 10^3/uL (4.8-10.8)
--- NOTE | 2023-12-12 09:21 | PTCARENOTE ---
Pt states left side sensation is better, left side weakness at baseline. No longer has double vision, left eye blurriness is improved. Continues with dizziness at times. Denies headache at present.
[2023-12-12 09:46] LABS: Blood Urea Nitrogen 14 mg/dl (7-17); Carbon Dioxide 23 mmol/L (22-30); Chloride 104 mmol/L (98-107); Estimated Creatinine Clearance > 125 ml/min; Glucose 145 mg/dl (70-99); Potassium 4.2 mmol/L (3.5-5.1); Sodium 138 mmol/L (135-145); eGFR > 60.00
[2023-12-12 10:03] LABS: Vitamin D, 25-OH*** 24.2 ng/mL (30-80)
--- NOTE | 2023-12-12 11:42 | W.PN.HOSP.TC ---
Today's Communication/Plan
-
OP neuro f/u
triptan prn
cm
Assessment / Plan
Assessment / Plan
General: Well Developed and No Apparent Distress
HEENT: PERRLA
Respiratory: Clear; No Wheezes
Cardiac: S1/S2 and Regular Rhythm
GI: Soft and Non Tender
Musculoskeletal: No Edema
Skin: Warm and Dry; No Rash
Neuro: AO x 3 and Other (5/5 strength b/l upper and lower extremities, clear speech, no facial asymmetry )
Psych: Calm
ASSESSMENT & PLAN
Altered vision wit GARDINER with Lt sided paraesthesia likely secondary to complex migraine
Headache secondary to migraine
Multiple sclerosis HX
-20 mg of Decadron in the ER. Additional 1 g Solu-Medrol provided on 12/10.
- MRI brain with and without contrast -Redemonstration of extensive demyelinating disease in the cerebral white matter, right cerebellar hemisphere, brachium pontis bilaterally, right mid torito. Appearance consistent with given clinical history of
multiple sclerosis. Slight progression since previous MRI. No enhancement by any of the lesions to suggest active demyelination.
-Triptan as needed.
- Neurology consult
Chronic borderline elevated ALT
Otherwise unremarkable AST and TB
Vitamin D deficiency�continue with p.o. supplementation
DVT Px: LMWH
Code: full
Discussed with neurology not highly concern for active MS flare. Okay for discharge.
Discussed with patient spouse at bedside in detail. Highly recommended to reschedule early appointment with neurology as outpatient.
More than 30 minutes spent in discharge including
Final examination of the patient
Summarizing hospital stay
Instructions for continuing care to all relevant caregivers
Preparation of discharge records, prescriptions, and referral forms
Total time spent (in minutes): 50
Anticipated Discharge: Today
Subjective/Interval History
-
Date of Service: December 12, 2023
Patient denies any right eye vision problems
States improvement in left eye vision. Denies any left eye vision loss. States some mild blurriness on the left lateral side.
Denies any headache or nausea or vomiting
Objective Data
-
Labs:
Laboratory Results
12/12/23
08:23
WBC 18.8 H
Hgb 15.2
Hct 43.6
Plt Count 341
Sodium 138
Potassium 4.2
Chloride 104
Carbon Dioxide 23
BUN 14
Creatinine 0.5 L
Glucose 145 H
Calcium 10.0
Vital Signs:
Vital Signs
Temp Pulse Resp BP Pulse Ox
97.9 F 95 19 125/75 97
12/12/23 07:30 12/12/23 07:30 12/12/23 07:30 12/12/23 07:30 12/12/23 07:30
I&O
12/11/23 12/12/23 12/13/23
06:59 06:59 06:59
Intake Total 720 / 720
Balance 720 / 720
[2023-12-12] MEDS: TYLENOL 650 MG PO (11:49)
[2023-12-12 12:20] VITALS: BP 122/83
--- NOTE | 2023-12-12 12:56 | W.DCSUMMARY ---
Discharge Summary
Discharge Data
Date of Admission: 12/11/23
Date of Discharge: 12/12/23
-
Pending Results: No
Hospital Course
28-year-old biological female with past medical history of MS, migraine who is presented with vision problems/vision loss. Patient underwent CT of the head on admission which is negative for acute stroke. Patient received Decadron in the ER.
Patient was eval by neurology. Patient underwent MRI of the brain with and without contrast Redemonstration of extensive demyelinating disease in the cerebral white matter, right cerebellar hemisphere, brachium pontis bilaterally, right mid torito.
Appearance consistent with given clinical history of multiple sclerosis. Slight progression since previous MRI. No enhancement by any of the lesions to suggest active demyelination. Patient also received 1 g of steroids. Patient symptomology not
consistent with MS flareup and more in line with complex migraine. Patient headache resolved. Improvement in vision. Right eye vision completely resolved. Left eye vision with only mild blurriness. Recommended outpatient ophthalmology
follow-up. Patient was highly recommended to follow-up with neurology as outpatient for maintenance treatment for MS and complex migraine. This was also discussed with patient and spouse verbalized understanding. Patient was also eval by PT and
OT. Patient was also recommended not to drive until improvement in vision. Spouse stated she will drive patient.
Discharge Plan
-
Patient Disposition: Home (Routine Discharge)
Discharge Diagnosis/Procedures: Blurry vision secondary to complex migraine flareup
Condition: Fair
Diet: As tolerated
Activity: With assistance and As tolerated
Driving Restrictions: Not until seen by your Dr
Activity Restrictions/Additional Instructions:
Limit Sumatriptan usage to 2 days a week to avoid rebound headache.
Referrals:
Tone Ivory MD [Active] - None
Ashley Cameron MD [Active] - (call to make appt. )
Yen Mejia, [Family Provider] - in less than 1 week
Prescriptions:
New
sumatriptan succinate 50 mg tablet
50 mg PO ONCE PRN (Reason: migraine headache) Qty: 14 0RF
Continued
cyanocobalamin (vitamin B-12) 500 mcg Tablet
500 mcg PO DAILY
ibuprofen [Advil] 200 mg Tablet
200 mg PO Q6HPRN PRN (Reason: mild pain)
testosterone cypionate 200 mg/mL Oil
100 mg IM SA
Patient Comments:
last filled on 10/07/23 at [facility] pharmacy for 2 vials
cholecalciferol (vitamin D3) [Vitamin D3] 25 mcg (1,000 unit) Tablet
25 mcg PO DAILY
ferrous sulfate 324 mg (65 mg iron) Tablet,Delayed Release (Dr/Ec)
324 mg PO DAILY
Discharge Orders:
Discharge Patient (As Directed); Ordered 12/12/23
Ordered By: Pablo Ramos
Discharge Date and Time
Print Language: TURKMEN
--- NOTE | 2023-12-12 14:11 | CM ---
Patient seen bedside.
Patient requested information re neurologists in the area that take his insurance.
TC to [facility], spoke with provider services.
3 doctors names and phone given: Dr Walsh, Dr Ivory at [phone] located in [place], and Danielle Hutchins [phone] located in [place].
[facility] memeber service number and website provided for additional resources- [employer]
Plan: home no needs.
== END 2023-12-12 14:00 | disposition home or self-care (01) | DRG 103 ==
LOC: 4 WEST ACU 04:02
PROVIDERS: Clinical Nurse Specialist Family Health; ADMITTING PHYSICIAN Internal Medicine; ATTENDING PHYSICIAN Hospitalist; CONSULT PHYSICIAN Student in an Organized Health Care Education/Training Program; EMERGENCY PHYSICIAN Emergency Medicine; FAMILY PHYSICIAN Hospitalist
DX: G43.109 Migraine with aura, not intractable, without status migrainosus (principal); G35 Multiple sclerosis; J45.909 Unspecified asthma, uncomplicated; E55.9 Vitamin D deficiency, unspecified; H53.2 Diplopia; H53.149 Visual discomfort, unspecified; R29.810 Facial weakness; R20.0 Anesthesia of skin; R20.2 Paresthesia of skin; R47.81 Slurred speech; R74.01 Elevation of levels of liver transaminase levels
CPT/HCPCS: 70450; 70553; 80048; 80053; 82306; 85025; 96361; 96374; 97162; 97166; 97530; 97535; 99284; 99406; A9575

== ENCOUNTER 2024-01-08 01:03 | Emergency (ER) | payer OTHER, SELFPAY ==
[2024-01-08 01:08] VITALS: BP 128/71
--- NOTE | 2024-01-08 03:05 | ED.GENMED ---
History of Present Illness
General
Chief Complaint: Oral/Mouth Problem
Source: patient
Exam Limitations: none
Time Seen by Provider: 01/08/24 02:37
Nursing documentation reviewed up to this point in time: agreed with
History of Present Illness
History of Present Illness:
This is a 28-year-old transgender male maintained on testosterone who has history of MS, migraines with recent overnight hospitalization mid November with complaints of vision difficulty. CAT scan and MRI showed evidence of known MS mildly progressed
from previous imaging but vision issues thought to be more consistent with complex migraine and improved after IV steroids. Recommended follow-up with neurology as an outpatient. No recurrent episodes of vision difficulty but he presents tonight
with complaints of right lateral tongue pain and area of focal tongue ulceration that developed 2 days ago. Unsure if tongue has been rubbing on partially cracked tooth. No history of similar episodes in the past. He denies fever nor chills, no
sore throat, no difficulty swallowing.
Denies significant citrus nor other acidic food intake.
Past History
Past History
ED Past Medical History: Asthma, Other (MS since age 20 yo with visual changes that he wore glasses for to help correct), Other (Complex migraines) and Other (Transgender male)
ED Past Surgical History: Appendectomy
Social History
Tobacco: Smoker
Alcohol: None
Personal:
Living: with family
Family History
Family History: Other (Noncontributory)
Phy Exam
Physical Exam
Physical Exam:
GENERAL: 28-year-old transgender male appears his stated age. Awake and alert, pleasant, appears in no acute distress.
EYE: anicteric
NECK: Supple, nontender, no meningismus, no significant adenopathy.
ENT: posterior pharynx is clear, oral mucosa is moist. There is a superficial aphthous ulcer right mid lateral tongue with very minimal local soft tissue swelling. No erythema. There is no dental tenderness. No evidence of stomatitis. TM clear
b/l, nares patent.
CARDIAC: Regular rate and rhythm. no murmur.
LUNGS: Clear breath sounds bilaterally, no acute respiratory distress, no wheezes/rales/rhonchi
ABDOMEN: Soft, nondistended, without focal tenderness
NEUROLOGICAL: Alert and oriented x3, no focal neuro deficits. Gait is freeman and steady.
SKIN: Warm and dry, normal color, skin intact. No rash.
MUSCULOSKELETAL: No C/C/E. peripheral pulses are full and equal b/l. No palpable tenderness.
PSYCH: Normal and appropriate interaction.
Course
Vital Signs
Initial and Last Documented VS:
Initial Vital Signs
Temp Pulse Resp BP Pulse Ox
98.1 F 54 20 128/71 98
01/08/24 01:08 01/08/24 01:08 01/08/24 01:08 01/08/24 01:08 01/08/24 01:08
Last Documented Vital Signs
Temp Pulse Resp BP Pulse Ox
98.1 F 54 20 128/71 98
01/08/24 01:08 01/08/24 01:08 01/08/24 01:08 01/08/24 01:08 01/08/24 01:08
MDM/Problems Addressed
Differential Diagnosis Includes:
Patient presents with 2-day history of aphthous ulcer right lateral tongue that may be local friction related.
Aphthous ulcer is focally located on the tongue, no evidence of stomatitis nor dehydration.
Recommend supportive measures, avoiding spicy foods, avoiding citric acid, tart juices, tomatoes and tomato sauce.
Will initiate a course of Kenalog and Orabase to be used at bedtime.
Tylenol versus ibuprofen as needed for discomfort.
Prompt follow-up with PCP for recheck.
*Pulse Oximetry
Patient hypoxic: no
*Critical Care Note
Total Time (30-74mins, 75-104mins- exclusive of procedures): Not Applicable
ED Attending Note
-
Portions of this chart may have been created with voice recognition software.� Occasional wrong word or��sound alike� substitutions may have occurred due to the inherent limitations of voice recognition software.
Discharge Plan
Departure
Patient Disposition: Home (Routine Discharge)
Date of Disposition: 01/08/24
Time of Disposition: 03:06
Patient with high blood pressure during this ER visit?: No
Condition: Good
Discharge Problem:
Aphthous ulcer of tongue
Instructions: Mouth Sores (DC)
Prescriptions:
New
triamcinolone acetonide 0.1 % paste
1 applic dental HS PRN (Reason: mouth irritation) Qty: 5 0RF
No Action
cyanocobalamin (vitamin B-12) 500 mcg Tablet
500 mcg PO DAILY
ibuprofen [Advil] 200 mg Tablet
200 mg PO Q6HPRN PRN (Reason: mild pain)
testosterone cypionate 200 mg/mL Oil
100 mg IM SA
Patient Comments:
last filled on 10/07/23 at [facility] pharmacy for 2 vials
cholecalciferol (vitamin D3) [Vitamin D3] 25 mcg (1,000 unit) Tablet
25 mcg PO DAILY
ferrous sulfate 324 mg (65 mg iron) Tablet,Delayed Release (Dr/Ec)
324 mg PO DAILY
sumatriptan succinate 50 mg tablet
50 mg PO ONCE PRN (Reason: migraine headache) Qty: 14 0RF
Referrals:
PRIVATE,PHYSICIAN [Family Provider] - Call in 1-3 days for appt
Interventions
Interventions:
*Risk Screen - Suicide Last Done: 01/08/24 01:08
*General Assessment Last Done: 01/08/24 01:08
*Neglect/Abuse Screening Last Done: 01/08/24 01:08
ED- Fall Risk Assessment Last Done: 01/08/24 01:08
*ED COVID-19 Vaccine History Last Done: 01/08/24 01:08
Discharge Date and Time
Print Language: LATVIAN
== END 2024-01-08 04:29 | disposition home or self-care (01) ==
LOC: EMR 01:03
PROVIDERS: EMERGENCY PHYSICIAN Emergency Medicine
DX: K12.0 Recurrent oral aphthae (principal); F17.200 Nicotine dependence, unspecified, uncomplicated
CPT/HCPCS: 99282

== ENCOUNTER 2024-04-28 23:52 | Emergency (ER) | payer OTHER, SELFPAY ==
[2024-04-28 23:58] VITALS: BP 134/91
[2024-04-29 00:35] LABS: COVID-19 Antigen Negative (Negative)
[2024-04-29 01:35] VITALS: BMI 34.3
--- NOTE | 2024-04-29 02:18 | ED.GENMED ---
History of Present Illness
<TRISTIN Pineda - Last Filed: 04/29/24 05:28>
General
Chief Complaint: Cold/Flu/URI Symptoms
Source: patient and significant other
Time Seen by Provider: 04/29/24 02:06
History of Present Illness
History of Present Illness:
A 28-year-old trans masculinizing male with a past medical history of asthma and MS presents to the emergency department for upper URI symptoms and recurrent nosebleeds. Patient stated that upper respiratory symptoms such as sore throat, cough,
congestion, shortness of breath began 6 days ago. He admits to a fever on Friday of '100'.Patient also admits to a left-sided headache over the last week which he states is mild in comparison to his previous migraines. He also admits to new
onset of epistaxis over the last 2 days, occurring intermittently, which have all stopped after 6 to 10 minutes of nasal compression.
Past History
<TRISTIN Pineda - Last Filed: 04/29/24 05:28>
Past History
ED Past Medical History: Asthma, Other (MS since age 20 yo with visual changes that he wore glasses for to help correct), Other (Complex migraines) and Other (Transgender male)
ED Past Surgical History: Appendectomy
Social History
Tobacco: Smoker
Alcohol: None
Personal:
Living: with family
Family History
Family History: Other (Noncontributory)
Review of Systems
<TRISTIN Pineda - Last Filed: 04/29/24 05:28>
Review of Systems
Allergies reviewed?: Yes
Phy Exam
<TRISTIN Pineda - Last Filed: 04/29/24 05:28>
General Physical Exam
General Presentation: well appearing
General age: appears stated age
General Skin: warm
General Habitus: obese
General Mental: alert
ENT Exam
Additional ENT: No occult blood found within the nares
Eye Exam
Eye Exam: PERRL and EOMI
Eye Exam General: abnormal EOM: left (Difficulty with the right lateral and left lateral gazes)
Cardiovascular Exam
Cardiovascular Exam: regular rate/rhythm, no edema, no gallop, no murmur and normal peripheral pulses
Pulmonary Exam
Pulmonary Exam: lungs clear, no respiratory distress, no rales, no crackles, no rhonchi and no wheezing
Gastrointestinal Exam
Gastrointestinal Exam: normal bowel sounds, non tender, soft and non distended
Neurological Exam
Neurological Exam: alert and oriented x3
Musculoskeletal Exam
Musculoskeletal Exam: full ROM
Course
<[facility] yLn [facility] - Last Filed: 04/29/24 05:28>
Orders/Labs/Results
Orders:
Orders
04/29/24 00:02
Electrocardiogram (*1) Urgent
Reason for Study: Shortness of Breath
04/29/24 00:03
EKG- Treatment ONCE
04/29/24 00:08
COVID-19 Antigen Urgent
Source: Nasal Swab
Influenza A+B Rapid Molecular Urgent
ELZA Source: Nasal Swab
Specimen Description:
Vital Signs
Initial and Last Documented VS:
Initial Vital Signs
Temp Pulse Resp BP Pulse Ox
98.2 F 68 18 134/91 98
04/28/24 23:58 04/28/24 23:58 04/28/24 23:58 04/28/24 23:58 04/28/24 23:58
Last Documented Vital Signs
Temp Pulse Resp BP Pulse Ox
98.0 F 64 17 102/86 98
04/29/24 01:35 04/29/24 04:00 04/29/24 04:00 04/29/24 04:00 04/29/24 04:00
<Martha Pavon DO - Last Filed: 04/29/24 03:53>
Orders/Labs/Results
Orders:
Orders
04/29/24 00:02
Electrocardiogram (*1) Urgent
Reason for Study: Shortness of Breath
04/29/24 00:03
EKG- Treatment ONCE
04/29/24 00:08
COVID-19 Antigen Urgent
Source: Nasal Swab
Influenza A+B Rapid Molecular Urgent
ELZA Source: Nasal Swab
Specimen Description:
Vital Signs
Initial and Last Documented VS:
Initial Vital Signs
Temp Pulse Resp BP Pulse Ox
98.2 F 68 18 134/91 98
04/28/24 23:58 04/28/24 23:58 04/28/24 23:58 04/28/24 23:58 04/28/24 23:58
Last Documented Vital Signs
Temp Pulse Resp BP Pulse Ox
98.0 F 64 17 102/86 98
04/29/24 01:35 04/29/24 04:00 04/29/24 04:00 04/29/24 04:00 04/29/24 04:00
Procedures
<Martha Pavon DO - Last Filed: 04/29/24 03:53>
Nosebleed
Drug treatment: Lidocaine and Epinephrine
Treatment: Silver nitrate cautery
Post treatment bleeding: none- good control
<TRISTIN Pineda - Last Filed: 04/29/24 05:28>
MDM/Problems Addressed
Differential Diagnosis Includes:
Anterior epistaxis, MS flare, viral syndrome
<TRISTIN Pineda - Last Filed: 04/29/24 05:28>
*Critical Care Note
Total Time (30-74mins, 75-104mins- exclusive of procedures): Not Applicable
<TRISTIN Pineda - Last Filed: 04/29/24 05:28>
Update Note
Update Note:
04/29/2024 0306 AM : STPA: Patient sneezed and begin bleeding from the ear right praveena. Dr. Pavon initiated topical anesthetic preparation for silver nitrate cautery.
ED Attending Note
<TRISTIN Pineda - Last Filed: 04/29/24 05:28>
-
Portions of this chart may have been created with voice recognition software.� Occasional wrong word or��sound alike� substitutions may have occurred due to the inherent limitations of voice recognition software.
<Martha Pavon DO - Last Filed: 04/29/24 03:53>
ED Attending Note
Patient seen and examined by attending physician: Yes
I performed the substantive portion of visit, reviewed & personally made and approve the management plan that is documented in note by myself or JACEK.: Yes
ED Attending Note:
This is a 28-year-old transgender male with history of MS, previously maintained on Copaxone with last dose 2018. Has neglected follow-up with neurology since that time but was briefly hospitalized November of this year with concern for potential MS
flare. MRI consistent with demyelinating disease but no evidence of new/active lesions. Thought was patient had migraine with visual changes.
He complains of 6-day history of URI symptoms, cough, nasal congestion, sore throat, intermittent low-grade fever and since Friday, 2 and half days ago he has had intermittent right nostril epistaxis which comes on generally after blowing his nose
or with sneezing. Right nostril epistaxis promptly resolves with brief local pressure.
He has history of asthma generally well-controlled. Not maintained on inhaled corticosteroids and has not needed rescue inhaler.
He has had intermittent left eye blurriness and admits to some chronic vision difficulty in his left eye. Unsure if he is having an MS flare.
No recent travel.
No close contacts with similar symptoms.
He reportedly has an appointment with neurology scheduled for next month.
GENERAL: 28-year-old transgender male appears his stated age. Bright, alert, pleasant, appears in no acute distress. Rare brief dry cough is noted. No respiratory distress, able to speak in full sentences. is accompanying.
EYE: pupils equal and reactive. anicteric
NECK: Supple, nontender, no meningismus, no significant adenopathy.
ENT: posterior pharynx is clear, oral mucosa is moist. TM clear b/l, scant blood right nostril with moderate erythema to the anterior septum right nostril. Left nostril is clear.
CARDIAC: Regular rate and rhythm. no murmur.
LUNGS: Clear breath sounds bilaterally, no acute respiratory distress, no wheezes/rales/rhonchi
ABDOMEN: Soft, nondistended, without focal tenderness
NEUROLOGICAL: Alert and oriented x3, no focal neuro deficits. No focal neurodeficits. Gait is steady.
SKIN: Warm and dry, normal color, skin intact. No rash.
MUSCULOSKELETAL: No C/C/E. peripheral pulses are full and equal b/l. No palpable tenderness.
PSYCH: Normal and appropriate interaction.
Concern for viral URI. Exacerbation of asthma. No evidence of neurologic deficit. Patient has had chronic vision difficulty with left eye. At this point no convincing evidence of MS exacerbation.
He has had brief episode of right nostril epistaxis just prior to my initial exam.
COVID and influenza testing are negative.
EKG is unremarkable, unchanged from previous, September 2023.
Will plan to cauterize right anterior septum.
Will initiate short course of prednisone for viral URI. Prior short courses of prednisone have been helpful for left eye vision issues as well.
At this point no indication for laboratory studies nor chest x-ray. Lungs are clear to auscultation.
Encouraged prompt follow-up with PCP as well as neurology.
Discharge Plan
Departure
Patient Disposition: Home (Routine Discharge)
Date of Disposition: 04/29/24
Time of Disposition: 03:53
Patient with high blood pressure during this ER visit?: No
Condition: Good
Discharge Problem:
acute viral upper respiratory infection, Acute anterior epistaxis
Instructions: Viral Upper Respiratory Infection, Adult (DC), Nosebleeds ED
Prescriptions:
New
prednisone 10 mg Tablet
See Rx Instructions .ROUTE .COMPLEX Qty: 30 0RF
Rx Instructions:
Take By Mouth:
40 mg daily x3 days, 30 mg daily x3 days,
20 mg daily x3 days, 10 mg daily x3 days.
albuterol sulfate 90 mcg/actuation aerosol powdr breath activated
2 inh inhalation Q6H PRN (Reason: shortness of breath or wheezing) Qty: 1 0RF
No Action
cyanocobalamin (vitamin B-12) 500 mcg Tablet
500 mcg PO DAILY
ibuprofen [Advil] 200 mg Tablet
200 mg PO Q6HPRN PRN (Reason: mild pain)
testosterone cypionate 200 mg/mL Oil
100 mg IM SA
Patient Comments:
last filled on 10/07/23 at [facility] pharmacy for 2 vials
cholecalciferol (vitamin D3) [Vitamin D3] 25 mcg (1,000 unit) Tablet
25 mcg PO DAILY
ferrous sulfate 324 mg (65 mg iron) Tablet,Delayed Release (Dr/Ec)
324 mg PO DAILY
sumatriptan succinate 50 mg tablet
50 mg PO ONCE PRN (Reason: migraine headache) Qty: 14 0RF
triamcinolone acetonide 0.1 % paste
1 applic dental HS PRN (Reason: mouth irritation) Qty: 5 0RF
Referrals:
Andrew Mejia MD [Family Provider] - Call in 1-3 days for appt
Activity Restrictions/Additional Instructions:
Over the next 3 days, no blowing, no sniffing, no picking your nose!! Thereafter, you can start saline nasal spray such as Penrose or Stearns, 2 sprays each nostril twice daily.
Follow-up with your primary care physician for recheck as well as follow-up with neurology as planned.
Interventions
Interventions:
*Risk Screen - Suicide Last Done: 04/28/24 23:54
*General Assessment Last Done: 04/29/24 01:35
*Neglect/Abuse Screening Last Done: 04/29/24 01:35
ED- Fall Risk Assessment Last Done: 04/29/24 01:35
*ED COVID-19 Vaccine History Last Done: 04/29/24 01:35
*Nursing Disposition Last Done: 04/29/24 04:26
ED- Pulmonary Assessment Last Done: 04/29/24 01:35
Discharge Date and Time
Discharge Date/Time: 04/29/24 04:27
Print Language: [id number]
[2024-04-29 04:00] VITALS: BP 102/86
== END 2024-04-29 04:27 | disposition home or self-care (01) ==
LOC: EMR 23:52
PROVIDERS: EMERGENCY PHYSICIAN Emergency Medicine; FAMILY PHYSICIAN Internal Medicine
DX: R04.0 Epistaxis (principal); J06.9 Acute upper respiratory infection, unspecified; B97.89 Other viral agents as the cause of diseases classified elsewhere; Z11.52 Encounter for screening for COVID-19; J45.909 Unspecified asthma, uncomplicated; G35 Multiple sclerosis; G43.809 Other migraine, not intractable, without status migrainosus; F64.0 Transsexualism; F17.200 Nicotine dependence, unspecified, uncomplicated; H53.8 Other visual disturbances
CPT/HCPCS: 99283; 30901; 87502; 87811; 93005

== ENCOUNTER 2025-01-11 02:56 | Inpatient (IN) | payer OTHER, SELFPAY ==
[2025-01-10 19:26] VITALS: BP 159/85
[2025-01-10 20:08] LABS: Hematocrit 43.4 % (37.0-47.0); Hemoglobin 16.0 g/dL (12.0-16.0); Mean Corp Hgb Conc. 36.9 g/dL (33.0-37.0); Mean Corpuscular Volume 81.7 fL (81.0-99.0); Nucleated Red Blood Cells % 0 %; Platelet Count 314 10^3/uL (130-400); Red Cell Dist. Width 12.1 % (11.5-14.5)
--- NOTE | 2025-01-10 21:09 | ED.GENMED ---
History of Present Illness
General
Chief Complaint: Visual Problem
Time Seen by Provider: 01/10/25 21:09
History of Present Illness
History of Present Illness:
TIME OF INITIAL EVALUATION
- 9:15 PM
REVIEW OF OLD RECORDS
- The patient has history of MS. the patient was admitted in November 2023 and was given IV steroids for vision changes however was felt symptoms at that time related to complex migraine
CHIEF COMPLAINT(S)
Blurry vision and facial numbness on the left side.
HISTORY OF PRESENT ILLNESS
The patient, a 29-year-old male, presents with complaints of blurriness in the left eye and numbness on the left side of the face. He noticed that his vision is intermittently becoming blurry, with the left side being significantly affected. On
examination, his visual acuity is 20/70 in the left eye and 20/30 in the right eye. The patient described a sensation of numbness predominantly affecting the left side of the face. He reports having a history of multiple sclerosis (MS) and mentions
a past episode treated with intravenous steroids for what was initially thought to be a complex migraine.
Two days ago, the patient experienced what he initially believed to be a migraine. However, during todays drive, he experienced blurring of vision and reported seeing double, along with an episode of being cross-eyed. These symptoms, together with
his medical history, led to concerns about a possible MS exacerbation.
The patient recalls receiving migraine medications previously, which did not alleviate symptoms. He also mentioned a past hospital admission where he received IV steroids, which provided relief. A neurologist has previously been consulted for his
condition, and there was discussion of potential treatment with either IV or oral steroids. He recently switched to night shifts, raising concerns about fatigue contributing to his current symptoms. He feels his condition might be manageable as an
outpatient.
EXTERNAL RECORDS REVIEWED
Reviewed previous ER visit records indicating administration of intravenous steroids, with notes suggesting differential diagnoses of complex migraine versus MS exacerbation in the past.
PHYSICAL EXAM
- General: Well appearing in no distress
- HEENT: Moist oral mucosa, the patient does have some trouble tracking my finger with some disconjugate gaze at times
- Cardiovascular: No murmurs, borderline tachycardic heart rate, regular rhythm, No chest wall tenderness
- Pulmonary: No respiratory distress, breath sounds are clear and equal
- Abdomen: Soft with no peritoneal signs, no tenderness
- Neurologic: There may be some subtle left upper lid ptosis, although he reports some mild left sided weakness it is not clearly present on examination
- Psychiatric: Appropriate mental status, normal insight and judgement
- Extremities: Nontender, no edema, moves all extremities equally
- Skin: No rash, no lesions
CHRONIC MEDICAL CONDITIONS SIGNIFICANTLY AFFECTING CARE
Multiple Sclerosis
PLAN
1. Consult with the neurologist regarding the necessity of treating the patient with IV steroids versus oral steroids for the current exacerbation.
2. Consider outpatient management with potential prescription for oral steroids if appropriate, pending neurologists advice.
3. Continuous monitoring for any worsening of the symptoms, especially regarding vision and neurological status.
DIFFERENTIAL DIAGNOSIS
The Differential Diagnosis includes, in no particular order and is not limited to:
1. Multiple Sclerosis Exacerbation
2. Complex Migraine
3. Optic Neuritis
4. [place] Palsy
5. Stroke or Transient Ischemic Attack
6. Orbital Cellulitis
7. Idiopathic Intracranial Hypertension
8. Labyrinthitis
9. Myasthenia Gravis
10. Diabetes-related Retinopathy
SUMMARY OF ENCOUNTER
The patient, a 29-year-old male with a history of multiple sclerosis, was seen in the emergency department due to symptoms of blurry vision and facial numbness on the left side. These symptoms were concerning for a possible MS exacerbation. During
the visit, there was a desire to rule out a urinary tract infection as part of a comprehensive assessment. After discussion with neurology, the decision was made to initiate treatment with intravenous steroids due to the possibility of an MS
exacerbation. The plan includes hospital admission for the administration of IV steroids.
DISPOSITION
Admit
MANAGEMENT OF THE PATIENTS CARE WAS DISCUSSED WITH
Neurologist
PLAN
The patient will be admitted to the hospital for at least one night for the administration of intravenous steroids. A urine test will be conducted to rule out a urinary tract infection as part of a complete evaluation.
MEDICAL DECISION MAKING
- Number and Complexity of Problems Addressed: Chronic conditions affecting care include multiple sclerosis. Differential diagnosis includes multiple sclerosis exacerbation, complex migraine, optic neuritis, [place] palsy, stroke or transient ischemic
attack, orbital cellulitis, idiopathic intracranial hypertension, labyrinthitis, myasthenia gravis, and diabetes-related retinopathy.
- Data:
Category 1: Non-emergency department records reviewed, including patients outpatient pharmacy records.
Category 3: Discussion of management with a neurologist.
DIAGNOSIS
1. Multiple sclerosis exacerbation (G35)
2. Possible complex migraine (G43.909)
RADIOLOGY
- Not indicated
EKG
-
LABS
- CBC and chemistries unremarkable, urinalysis shows no sign of infection
UPDATE
- I discussed case with Dr. Ivory who recommends checking for UTI which she does not have, and recommends IV steroids. I have ordered IV Solu-Medrol 1 g.
Past History
Past History
ED Past Medical History: Asthma, Other (MS since age 20 yo with visual changes that he wore glasses for to help correct), Other (Complex migraines) and Other (Transgender male)
ED Past Surgical History: Appendectomy
Social History
Tobacco: Smoker
Alcohol: None
Personal:
Living: with family
Family History
Family History: Other (Noncontributory)
Phy Exam
Physical Exam
Physical Exam:
See HPI
Course
Orders/Labs/Results
Orders:
Orders
01/10/25 19:44
CMP [Comprehensive Metabolic Panel] Urgent
Complete Blood Count/With Diff Urgent
01/10/25 22:07
Urinalysis Reflex To Culture Urgent
Date Specimen was Collected: 01/10/25
Time Specimen was Collected: 21:58
Urine Microscopic Reflex Cult Urgent
01/10/25 23:16
MethylPREDNISolone. [Solu-Medrol] 1,000 mg 0.9% Sodium Chloride 250 ml [Nss] 250 ml IV NOW
Abnormal Lab Results
01/10/25 01/10/25
19:44 22:07
Glucose 129 H mg/dl
(70-99)
ALT 47 H U/L
(0-35)
Total Protein 8.5 H g/dl
(6.3-8.2)
Albumin 5.1 H g/dl
(3.5-5.0)
Ur Occult Blood Reflex 1+ A
(Negative)
Urine Urobilinogen 2+ A
(Neg - 1+)
Urine Bacteria (Reflex) Few A
(Negative)
Urine Albumin (Reflex) 2+ A
(Neg - Trace)
01/10/25 19:44
01/10/25 19:44
Vital Signs
Initial and Last Documented VS:
Initial Vital Signs
Temp Pulse Resp BP Pulse Ox
36.9 C 102 20 159/85 98
01/10/25 19:26 01/10/25 19:26 01/10/25 19:26 01/10/25 19:26 01/10/25 19:26
Last Documented Vital Signs
Temp Pulse Resp BP Pulse Ox
36.9 C 102 20 159/85 98
01/10/25 19:26 01/10/25 19:26 01/10/25 19:26 01/10/25 19:26 01/10/25 21:11
*Pulse Oximetry
SaO2: 98
Oxygen Mode of Delivery: Room air
Patient hypoxic: no
*Critical Care Note
Total Time (30-74mins, 75-104mins- exclusive of procedures): Not Applicable
ED Attending Note
-
Portions of this chart may have been created with voice recognition software.� Occasional wrong word or��sound alike� substitutions may have occurred due to the inherent limitations of voice recognition software.
Discharge Plan
Departure
Patient Disposition: Admit
Date of Disposition: 01/10/25
Time of Disposition: 23:16
Presentation/result/management discussed w/ accepting MD/DO: Hospitalist
Discharge Problem:
Exacerbation of multiple sclerosis
Prescriptions:
No Action
cyanocobalamin (vitamin B-12) 500 mcg Tablet
500 mcg PO DAILY
ibuprofen [Advil] 200 mg Tablet
200 mg PO Q6HPRN PRN (Reason: mild pain)
testosterone cypionate 200 mg/mL Oil
100 mg IM SA
Patient Comments:
last filled on 10/07/23 at [facility] pharmacy for 2 vials
cholecalciferol (vitamin D3) [Vitamin D3] 25 mcg (1,000 unit) Tablet
25 mcg PO DAILY
ferrous sulfate 324 mg (65 mg iron) Tablet,Delayed Release (Dr/Ec)
324 mg PO DAILY
sumatriptan succinate 50 mg tablet
50 mg PO ONCE PRN (Reason: migraine headache) Qty: 14 0RF
triamcinolone acetonide 0.1 % paste
1 applic dental HS PRN (Reason: mouth irritation) Qty: 5 0RF
prednisone 10 mg Tablet
See Rx Instructions .ROUTE .COMPLEX Qty: 30 0RF
Rx Instructions:
Take By Mouth:
40 mg daily x3 days, 30 mg daily x3 days,
20 mg daily x3 days, 10 mg daily x3 days.
albuterol sulfate 90 mcg/actuation aerosol powdr breath activated
2 inh inhalation Q6H PRN (Reason: shortness of breath or wheezing) Qty: 1 0RF
Referrals:
UNKNOWN - PT DOES,NOT KNOW [Family Provider]
Interventions
Interventions:
*Risk Screen - Suicide Last Done: 01/10/25 19:26
*General Assessment Last Done: 01/10/25 19:26
*Neglect/Abuse Screening Last Done: 01/10/25 19:26
*ED COVID-19 Vaccine History Last Done: 01/10/25 19:26
ED- Neurological Assessment Last Done: 01/10/25 21:00
ED-EENT Assessment Last Done: 01/10/25 21:00
Discharge Date and Time
Print Language: SWEDISH
[2025-01-10 21:37] LABS: ALT (SGPT) 47 U/L (0-35); AST (SGOT) 24 U/L (14-36); Albumin 5.1 g/dl (3.5-5.0); Alkaline Phosphatase 67 U/L (38-126); Blood Urea Nitrogen 15 mg/dl (7-17); Calcium 9.8 mg/dl (8.4-10.2); Carbon Dioxide 25 mmol/L (22-30); Chloride 107 mmol/L (98-107); Glucose 129 mg/dl (70-99); Potassium 3.8 mmol/L (3.5-5.1); Total Protein 8.5 g/dl (6.3-8.2); eGFR > 60.00
[2025-01-10 21:45] LABS: Sodium 141 mmol/L (135-145)
[2025-01-10 22:58] LABS: Urine Character Clear (Clear)
[2025-01-10 23:16] LABS: Urine Red Blood Cell 0-2 /HPF (0-2); Urine White Cell 0-2 /HPF (0-5)
[2025-01-11] VITALS (8 sets, daily range): BP systolic 112–139; BP diastolic 63–83; PULSE 59–95; O2SAT 96–98; BMI 31.7
[2025-01-11] MEDS: SOLU-MEDROL 258 MG IV ×2 (00:05→17:25)
--- NOTE | 2025-01-11 02:47 | HPS.HSE ---
Family Physician
-
Family Physician: NOT KNOW UNKNOWN - PT DOES
Chief Complaint
-
Weakness / Vision Changes
History of Present Illness
Patient is a 29y M with PMH significant for MS who presents to ED complaining of L sided weakness, unsteady gait and vision changes. Patient states that his current symptoms began about 2 days ago. He reports feeling 'off balance' and notes
that his L side feels weaker than usual. 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 He rested at home for a time; however, his symptoms did not improve and he presented to the ED for
further evaluation.
Patient states that his current symptoms are typical of his MS flares.
He denies any recent illness: fevers / chills, cough, N/V/D, etc.
He was last hospitalized here about one year ago with similar complaints.
Patient was initially diagnosed with MS at the age of 19. He was previously on Copaxone when he lived in [place], but has not been able to arrange this here in [place].
He has been off of any maintenance medications for the past 6 years or so.
Medical History
Past Medical History
Past Medical History: Reports Other
Additional Past Medical History:
Multiple Sclerosis
Past Surgical History: Reports None
Social History
Tobacco: Non-smoker
Alcohol: None
Drug: None
Personal:
Living: With Family
Family History
Family History: Not pertinent
Allergies / Home Medications
Allergies reflects when Allergies were last updated in [facility].
Home Medications with original date entered in [facility]
Allergy/Medication List:
Allergies
Allergy/AdvReac Type Severity Reaction Status Date / Time
No Known Allergies Allergy Verified 04/29/24 00:02
Home Medications
No Meds [No Current Medications] 01/11/25
Review of Systems
-
History Source: Patient
Constitutional: Reports Fatigue; Denies Fever or Chills
EENT: Reports Other (Double vision / blurry vision)
Respiratory: Denies Cough or Trouble Breathing
Cardiac: Denies Chest Pain or Palpitations
Abdomen/GI: Denies Abdominal Pain, Nausea, Vomiting or Diarrhea
: Denies Dysuria or Frequency
Musculoskeletal: Denies Joint Pain or Edema
Neurological: Reports Dizzy and Weakness; Denies Headache or Numbness
Psych: Denies Depression or Anxiety
Physical Exam
Vital Signs
Vital Signs
Temp Pulse Resp BP Pulse Ox
98.4 F 86 18 118/81 98
01/10/25 19:26 01/11/25 00:08 01/11/25 00:08 01/11/25 00:08 01/11/25 00:08
Physical Exam
General: Other (29 y M in no acute distress.)
HEENT: Moist mucous membranes and PERRLA
Respiratory: Clear; No Wheezes, Rales or Rhonchi
Cardiac: S1/S2 and Regular Rhythm; No Murmur
GI: Soft, Non Tender, Non Distended and Normal Bowel Sounds
Musculoskeletal: No Clubbing, No Cyanosis and No Edema
Neuro: AO x 3 and Other (L weakness (UE and LE) compared to the R. Normal [id number] / [id number].)
Laboratory Results
-
01/10/25 19:44
01/10/25 19:44
Laboratory Results
Total Bilirubin 1.2 mg/dl (0.2-1.3) 01/10/25 19:44
AST 24 U/L (14-36) 01/10/25 19:44
ALT 47 U/L (0-35) H 01/10/25 19:44
Alkaline Phosphatase 67 U/L (38-126) 01/10/25 19:44
Impression/Plan
-
A/P: Patient is a 29y M with PMH significant for MS who presents to ED complaining of L sided weakness, unsteady gait and double-vision for the past 2 days or so.
MS Flare
- Admit for further evaluation and treatment.
- Solu-Medrol started in the ED - continue 1000mg daily.
- Neurology evaluation in the AM for additional recommendations.
- Defer duration of steroids +/- any repeat imaging to Neuro recs.
DVT Prophylaxis: SCDs
Code Status: Full
[2025-01-11 06:10] LABS: Hematocrit 43.3 % (37.0-47.0); Hemoglobin 15.5 g/dL (12.0-16.0); Mean Corp Hgb Conc. 35.8 g/dL (33.0-37.0); Mean Corpuscular Volume 83.1 fL (81.0-99.0); Platelet Count 286 10^3/uL (130-400); Red Cell Dist. Width 11.9 % (11.5-14.5)
[2025-01-11 07:59] LABS: Blood Urea Nitrogen 14 mg/dl (7-17); Calcium 9.5 mg/dl (8.4-10.2); Carbon Dioxide 21 mmol/L (22-30); Chloride 107 mmol/L (98-107); Estimated Creatinine Clearance > 125 ml/min; Glucose 188 mg/dl (70-99); Potassium 4.5 mmol/L (3.5-5.1); Sodium 139 mmol/L (135-145); eGFR > 60.00
--- NOTE | 2025-01-11 09:25 | PTOTSP ---
pt currently requires supervision to no assistance to complete simple ADLs, functional transfers, ambulation. pt using wall to steady self due to blurry vision. encouraged pt to complete what he can with LUE to increase strength as able. educated pt
on outpatient services if needed; pt verbalized understanding. no acute OT needs identified at this time, will sign off.
--- NOTE | 2025-01-11 10:04 | CON.NEURO ---
Addendum entered and electronically signed by Tone Ivory MD 01/11/25 17:24:
Studies reviewed.
I have personally examined the patient. 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
My addenda:
Awake, alert, interactive. No acute distress.
Speech intact.
Follows 2-step requests w/o difficulty. No tremor.
Extra-ocular movements grossly intact.
Facial movements full and symmetric. Hearing intact to normal conversational volume.
Normal UE movements bilaterally.
Neck: full ROM.
Chest: no dyspnea
Heart: no JVD
Ext: (-) Clubbing, (-) Cyanosis, (-) Edema
IMPRESSIONS/RECOMMENDATIONS:
Abrupt onset of worsening vision in the left eye with chronic left sided mild weakness
Unclear if this represents an acute multiple sclerosis exacerbation with worsening of optic neuritis or simply recrudescence of prior symptoms
check MRIs of brain and cervical spine
consider continuation of steroids after MRI imaging completed
D/W patient
All questions answered.
Will continue to follow pending results.
Original Note:
Documented by User: Debbie Hernandez NP 01/11/25 12:21
Neuro Assessment/Plan
Assessment
Patient is a 29y M with H significant for MS who presented to [facility] on 01/11/2025 complaining of L sided weakness, unsteady gait and vision changes.
Brain MRI 12/11/2023: Redemonstration of extensive demyelinating disease in the cerebral white matter, right cerebellar hemisphere, brachium pontis bilaterally, right mid torito. Appearance consistent with given clinical history of multiple sclerosis.
Slight progression since previous MRI. No enhancement by any of the lesions to suggest active demyelination.
Head CT 12/11/2023: There are no focal or acute intracranial abnormalities. There is mild diffuse focal atrophy
Plan
Impressions: presumed multiple sclerosis exacerbation
-continue IV steroids as planned for now
-obtain brain MRI and cervical MRI to look for new demyelinating lesions
-needs to follow with neurology outpatient to get started on disease modifying therapy
-case management
-PT/OT evaluations
All questions encouraged and answered, plan of care discussed with Dr. Ivory, hospitalist, nurse and patient
Consultation
Order
Date of Consultation: 01/11/25
Requesting Provider: hospitalist
Reason for Consult: dizziness and diplopia
Subjective/Objective
Subjective Data
Date of Service: January 11, 2025
Patient is a 29y M with [facility] significant for MS who presented to [facility] on 01/11/2025 complaining of L sided weakness, unsteady gait and vision changes. Patient states that his current symptoms began about 2 days ago with blurry vision around 4-5pm.
He reports feeling 'off balance' and notes that his L side feels weaker than usual. 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 He rested at home for a time; however, his symptoms did not improve
and he presented to the ED for further evaluation. Patient states that his current symptoms are typical of his MS flares. He denies any recent illness: fevers / chills, cough, N/V/D, etc. Denies issues with speech or swallowing. Denies issues with
bowel/bladder. He was last hospitalized here about one year ago with similar complaints.
Adapted from neurology note by Dr. Walsh on 12/12/2023: '28-year-old man with a past ministry of multiple sclerosis and migraines presented to hospital with headache and vision changes and some mild left arm and leg weakness. Patient does feel
improved still having a little bit of blurred vision in the left eye minimal headache at this point no nausea, some mild photophobia present. Neurologic examination significant only for some 20/30 vision in the left eye no APD, right eye is 20/20,
visual casiano normal, otherwise neurologic exam normal. MRI brain with without contrast reviewed there is no contrast-enhancing lesions there are numerous changes of demyelinating disease but no new active lesions. He states that he was diagnosed
with multiple sclerosis at age 20. He was initially diagnosed after an episode of optic neuritis in the left eye. He subsequently had another episode of optic neuritis, this time affecting the right eye. He states that he received steroids for
these episodes in the past and tolerated the steroids well. He is been on Copaxone since these episodes and denies any further exacerbations while on the med. He denies any known spinal cord lesions and states that the majority of his white matter
lesions are in the left side of the brain. He has been living here for the past few months and was previously following with a neurologist in [place]. He has been out of Copaxone for 2 months. Subsequent evaluation by MRI of the brain and
entire spine with and without contrast in 2019 indicated enhancement left posterior and superior parietal lobe as well as the right anterolateral torito. Patient reports a complete normalization with above symptoms after the 2019 flare.'
In ED he was started on IV steroids for presumed multiple sclerosis exacerbation. Currently he is not on any disease modifying therapy.
Objective Data
Vital Signs
Temp Pulse Resp BP Pulse Ox
97.5 F 75 17 115/75 98
01/11/25 07:00 01/11/25 07:00 01/11/25 07:00 01/11/25 07:00 01/11/25 07:00
Lab Results
01/11/25 06:00
01/11/25 06:00
Sodium 139 mmol/L (135-145) 01/11/25 06:00
Potassium 4.5 mmol/L (3.5-5.1) 01/11/25 06:00
BUN 14 mg/dl (7-17) 01/11/25 06:00
Glucose 188 mg/dl (70-99) H 01/11/25 06:00
Calcium 9.5 mg/dl (8.4-10.2) 01/11/25 06:00
Patient Allergies
No Known Allergies Allergy (Verified 04/29/24 00:02)
Physical Exam
-
General: No Apparent Distress and Appears Stated Age
Eyes: OU Absent Papilledema, Able to visualize OU, Round OU, [place] Conjunctivae and No Ptosis
HEENT: Anicteric and Moist Mucous Membranes
Neck: Full Range of Motion
Respiratory: No Dyspnea
Cardiac: No JVD
GI: Non-tender
Skin: Unremarkable
Extremities: No Clubbing, No Cyanosis and No Edema
Psych: Intact Judgement/Insight
Extended Neurological Exam
Mood & Affect: Mood Unremarkable and Affect Unremarkable
Attention Span & Concentration: Awake, Alert, Interactive and No Difficulty with 2 Step Request
Memory: Unremarkable
Tremor: Hand Tremor Absent and Head Tremor Absent
Speech: Quality Unremarkable, Quantity Unremarkable and Rate of Production Unremarkable
Cranial Nerve II: Left Eye: Pupillary Reactivity Unremarkable, Pupillary Size Unremarkable and Visual Casiano Intact
Cranial Nerve II: Right Eye: Pupillary Reactivity Unremarkable, Pupillary Size Unremarkable, Visual Casiano Intact and Other (OD 4/5 Ishihara plates, OS 7/8 plates)
Cranial Nerves III, IV, : Extraocular Movement: Nystagmus with Extreme Gaze to Right, Otherwise Unremarkable and Other (left partial JOSE)
Cranial Nerve V: Facial Sensation: Facial Sensation Unremarkable to Cold
Cranial Nerve VII: Facial Symmetry: Normal Facial Symmetry
Cranial Nerve VIII: Hearing: Unremarkable Hearing to Normal Conversational Volume
Cranial Nerves IX, X: Palate Movement: Palate Elevation Symmetric
Cranial Nerve XI: Shoulder Shrug: Unremarkable
Cranial Nerve XII: Tongue Protusion: Midline
Muscle Strength, Overall: Reduced on Left (5-/5 to LUE)
Muscle Bulk & Tone: Bulk Unremarkable and Tone Unremarkable
Pronator Drift: Drift in Left Upper Extremity
Deep Tendon Reflexes: Other (figueroa on left)
Cold Sensation: Unremarkable
Vibration Sensation: Unremarkable
Touch Sensation: Unremarkable
Coordination: Other (ataxic on left)
Medications
-
Active Medications
Generic Name Dose Route Start Last Admin
Trade Name Freq PRN Reason Stop Dose Admin
Acetaminophen 650 mg 01/11/25 04:17
Acetaminophen 325 Mg Tablet PO 02/08/25 04:16
Q4HPRN PRN
Mild Pain / Temp > 101
Albuterol Sulfate 2.5 mg 01/11/25 04:17
Albuterol Nebs 2.5 Mg/3 Ml Ampul INH
R Q4HPRN PRN
SOB
Protocol
Methylprednisolone Sodium 258 mls @ 258 mls/hr 01/12/25 00:00
Succinate 1,000 mg/ Sodium IV 02/09/25 00:00
Chloride Q24H TABITHA
Sodium Chloride 0 flush 01/11/25 05:00
Sodium Chloride 0.9% (Flush) Syringe IV 02/08/25 04:59
PER PROTOCOL TABITHA
Home Medications
�Medication �Instructions �Recorded
No Meds [No Current Medications] 01/11/25

Documented by User: Tone Ivory MD 01/11/25 17:21
Past History
Past History
ED Past Medical History: Asthma, Other (MS since age 20 yo with visual changes that he wore glasses for to help correct), Other (Complex migraines) and Other (Transgender male)
ED Past Surgical History: Appendectomy
Social History
Tobacco: Smoker
Alcohol: None
Personal:
Living: with family
Family History
Family History: Other (Noncontributory)
--- NOTE | 2025-01-11 11:18 | W.PN.HOSP.TC ---
Today's Communication/Plan
-
continue IV Steroids
MRI studies
PT/OT
Follow neuro recs
Assessment / Plan
Assessment / Plan
Assessment:
suspected MS Flare
- continue IV Solu-Medrol 1g daily
- check MRI brain and C spine w/wo contrast
- follow Neurology recs
- PT/OT
DVT Prophylaxis: SCDs
Code Status: Full
Anticipated Discharge: > 48 hours
Subjective/Interval History
-
Date of Service: January 11, 2025
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
reports ran out of meds - recently moved from [place] to [place]
Objective Data
-
Labs:
Laboratory Results
01/11/25
06:00
WBC 6.4
Hgb 15.5
Hct 43.3
Plt Count 286
Sodium 139
Potassium 4.5
Chloride 107
Carbon Dioxide 21 L
BUN 14
Creatinine 0.6
Glucose 188 H
Calcium 9.5
Vital Signs:
Vital Signs
Temp Pulse Resp BP Pulse Ox
97.5 F 75 17 115/75 98
01/11/25 07:00 01/11/25 07:00 01/11/25 07:00 01/11/25 07:00 01/11/25 07:00
I&O
01/10/25 01/11/25 01/12/25
06:59 06:59 06:59
Intake Total 100 / 100
Balance 100 / 100
Physical Exam
-
General: No Apparent Distress
HEENT: Normocephalic and Atraumatic
Respiratory: Negative Wheezes
Cardiac: Regular Rhythm and S1/S2
GI: Soft
Genito-urinary: No Costovertebral Tender
Neuro: AO x 3
Psych: Calm
Data Reviewed
-
Total Time Spent with Patient (in minutes): 41
Labs: Labs Reviewed by me
--- NOTE | 2025-01-11 16:14 | CM ---
CM reviewed chart, patient seen bedside with family, initial assessment completed. Patient resides with his significant other in a second floor apartment, no elevator, railing used to go up stairs. Patient denies use of DME, VN/SNF history. Patient
denies PCP- declines need for list, reports patient does not have insurance and is working with new employer to get insurance- will wait to determine insurance coverage to find PCP. Pharmacy used [facility] [place]. Patient denies needs from CM at this
time, will place call to [facility] regarding insurance assistance. CM will continue to follow for all discharge planning needs.
Plan; home with family likely
[2025-01-12 05:59] LABS: Hematocrit 40.9 % (37.0-47.0); Hemoglobin 14.8 g/dL (12.0-16.0); Mean Corp Hgb Conc. 36.2 g/dL (33.0-37.0); Mean Corpuscular Volume 82.6 fL (81.0-99.0); Platelet Count 295 10^3/uL (130-400); Red Cell Dist. Width 12.0 % (11.5-14.5)
[2025-01-12 06:00] VITALS: BMI 31.7
[2025-01-12 06:16] LABS: ALT (SGPT) 34 U/L (0-35); AST (SGOT) 16 U/L (14-36); Albumin 4.8 g/dl (3.5-5.0); Alkaline Phosphatase 68 U/L (38-126); Blood Urea Nitrogen 12 mg/dl (7-17); Calcium 9.8 mg/dl (8.4-10.2); Carbon Dioxide 22 mmol/L (22-30); Chloride 110 mmol/L (98-107); Estimated Creatinine Clearance > 125 ml/min; Glucose 183 mg/dl (70-99); Potassium 4.3 mmol/L (3.5-5.1); Sodium 139 mmol/L (135-145); Total Protein 7.9 g/dl (6.3-8.2); eGFR > 60.00
[2025-01-12 07:00] VITALS: BP 123/73
--- NOTE | 2025-01-12 09:41 | W.PN.NEURO.1 ---
Today's Communication / Plan
-
.
Neuro Assessment/Plan
Assessment
Patient is a 29y M with PMH significant for MS who presented to [facility] on 01/11/2025 complaining of L sided weakness, unsteady gait and vision changes.
Brain MRI 12/11/2023: Remonstration of extensive demyelinating disease in the cerebral white matter, right cerebellar hemisphere, brachium pontis bilaterally, right mid torito. Appearance consistent with given clinical history of multiple sclerosis.
Slight progression since previous MRI. No enhancement by any of the lesions to suggest active demyelination.
Head CT 12/11/2023: There are no focal or acute intracranial abnormalities. There is mild diffuse focal atrophy
Impressions: presumed multiple sclerosis exacerbation with optic neuritis on the left
Plan
continue IV steroids as planned for now, total dosing for 5 days. May switch to
obtain brain MRI and cervical MRI to look for new demyelinating lesions
needs to follow with neurology outpatient to get started on disease modifying therapy
outpatient ophthalmology evaluations
case management
OT evaluations
Will follow
Subjective/Objective
Subjective Data
Date of Service: January 12, 2025
Pain in left eye 4/10, improved
Left-sided strength improved
Objective Data
Vital Signs
Temp Pulse Resp BP Pulse Ox
36.6 C 85 17 123/73 97
01/12/25 07:00 01/12/25 07:00 01/12/25 07:00 01/12/25 07:00 01/12/25 07:00
Lab Results
01/12/25 05:17
01/12/25 05:17
Sodium 139 mmol/L (135-145) 01/12/25 05:17
Potassium 4.3 mmol/L (3.5-5.1) 01/12/25 05:17
BUN 12 mg/dl (7-17) 01/12/25 05:17
Glucose 183 mg/dl (70-99) H 01/12/25 05:17
Calcium 9.8 mg/dl (8.4-10.2) 01/12/25 05:17
Patient Allergies
No Known Allergies Allergy (Verified 04/29/24 00:02)
Past History
Past History
ED Past Medical History: Asthma, Other (MS since age 20 yo with visual changes that he wore glasses for to help correct), Other (Complex migraines) and Other (Transgender male)
ED Past Surgical History: Appendectomy
Social History
Tobacco: Smoker
Alcohol: None
Personal:
Living: with family
Family History
Family History: Other (Noncontributory)
Medications
-
Medications:
Generic Name Dose Route Start Last Admin
Trade Name Freq PRN Reason Stop Dose Admin
Acetaminophen 650 mg 01/11/25 04:17
Acetaminophen 325 Mg Tablet PO 02/08/25 04:16
Q4HPRN PRN
Mild Pain / Temp > 101
Albuterol Sulfate 2.5 mg 01/11/25 04:17
Albuterol Nebs 2.5 Mg/3 Ml Ampul INH
R Q4HPRN PRN
SOB
Protocol
Methylprednisolone Sodium 258 mls @ 258 mls/hr 01/11/25 18:00 01/11/25 17:25
Succinate 1,000 mg/ Sodium IV 02/08/25 17:59 258 mls
Chloride Q24H TABITHA Administration
Lorazepam 1 mg 01/11/25 17:23
Lorazepam 1 Mg Tablet PO 01/12/25 17:22
ONCE PRN PRN
PRIOR TO MRI
Sodium Chloride 0 flush 01/11/25 05:00
Sodium Chloride 0.9% (Flush) Syringe IV 02/08/25 04:59
PER PROTOCOL TABITHA
--- NOTE | 2025-01-12 11:24 | W.PN.HOSP.TC ---
Today's Communication/Plan
-
continue IV steroids
MRI imaging pending
Assessment / Plan
Assessment / Plan
Assessment:
suspected MS Flare
- continue IV Solu-Medrol 1g daily
- await MRI brain and C spine w/wo contrast
- follow Neurology recs
- PT/OT
DVT Prophylaxis: SCDs
Code Status: Full
Anticipated Discharge: > 48 hours
Subjective/Interval History
-
Date of Service: January 12, 2025
reports some improvement in peripheral vision, less blurry. Left sided weakness improving
Objective Data
-
Labs:
Laboratory Results
01/12/25
05:17
WBC 15.1 H
Hgb 14.8
Hct 40.9
Plt Count 295
Sodium 139
Potassium 4.3
Chloride 110 H
Carbon Dioxide 22
BUN 12
Creatinine 0.5 L
Glucose 183 H
Calcium 9.8
Total Bilirubin 0.7
AST 16
ALT 34
Alkaline Phosphatase 68
Vital Signs:
Vital Signs
Temp Pulse Resp BP Pulse Ox
97.9 F 85 17 123/73 97
01/12/25 07:00 01/12/25 07:00 01/12/25 07:00 01/12/25 07:00 01/12/25 07:00
I&O
01/11/25 01/12/25 01/13/25
06:59 06:59 06:59
Intake Total 100 / 100 860 / 860
Balance 100 / 100 860 / 860
Physical Exam
-
General: No Apparent Distress
HEENT: Normocephalic and Atraumatic
Respiratory: Negative Wheezes
Cardiac: Regular Rhythm and S1/S2
GI: Soft and Nontender
Neuro: AO x 3
Psych: Calm
Data Reviewed
-
Total Time Spent with Patient (in minutes): 42
Labs: Labs Reviewed by me
[2025-01-12 11:25] VITALS: BP 118/62; BP 118/73; BP 123/68; PULSE 75; PULSE 84
[2025-01-12 15:00] VITALS: BP 119/66
[2025-01-12 15:58] VITALS: BMI 31.7
[2025-01-12] MEDS: SOLU-MEDROL 258 MG IV (17:14)
[2025-01-12 23:47] VITALS: BP 178/93
[2025-01-12 23:48] VITALS: BP 119/72; BP 126/74; BP 178/93; PULSE 63; PULSE 68; PULSE 70
[2025-01-13 05:52] LABS: Hematocrit 40.3 % (37.0-47.0); Hemoglobin 14.5 g/dL (12.0-16.0); Mean Corp Hgb Conc. 36.0 g/dL (33.0-37.0); Mean Corpuscular Volume 83.4 fL (81.0-99.0); Platelet Count 300 10^3/uL (130-400); Red Cell Dist. Width 12.2 % (11.5-14.5)
[2025-01-13 06:20] LABS: ALT (SGPT) 29 U/L (0-35); AST (SGOT) 14 U/L (14-36); Albumin 4.5 g/dl (3.5-5.0); Alkaline Phosphatase 92 U/L (38-126); Blood Urea Nitrogen 15 mg/dl (7-17); Calcium 9.3 mg/dl (8.4-10.2); Carbon Dioxide 23 mmol/L (22-30); Chloride 108 mmol/L (98-107); Estimated Creatinine Clearance > 125 ml/min; Glucose 221 mg/dl (70-99); Potassium 4.3 mmol/L (3.5-5.1); Sodium 139 mmol/L (135-145); Total Protein 7.3 g/dl (6.3-8.2); eGFR > 60.00
[2025-01-13 06:30] VITALS: BMI 32.1
[2025-01-13 07:56] VITALS: BP 134/69
[2025-01-13 08:44] LABS: Glucose - Point of Care 169 mg/dl (70-99)
--- NOTE | 2025-01-13 09:28 | CM ---
Patient is for discharge to home when stable, patient knows he needs to provide paperwork in order to obtain insurance again. Patient was provided with a walker for discharge.
Plan; Home at discharge, patient needs to follow up to obtain insurance, patient was provided with a walker.
--- NOTE | 2025-01-13 10:08 | W.PN.NEURO.1 ---
Neuro Assessment/Plan
Assessment
Patient is a 29y M with PMH significant for MS who presented to [facility] on 01/11/2025 complaining of L sided weakness, unsteady gait and vision changes.
Brain MRI 12/11/2023: Remonstration of extensive demyelinating disease in the cerebral white matter, right cerebellar hemisphere, brachium pontis bilaterally, right mid torito. Appearance consistent with given clinical history of multiple sclerosis.
Slight progression since previous MRI. No enhancement by any of the lesions to suggest active demyelination.
Head CT 12/11/2023: There are no focal or acute intracranial abnormalities. There is mild diffuse focal atrophy
Impressions: presumed multiple sclerosis exacerbation with optic neuritis on the left
Plan
continue IV steroids as planned for now, total dosing for 5 days. May switch to
obtain brain MRI and cervical MRI to look for new demyelinating lesions
needs to follow with neurology outpatient to get started on disease modifying therapy
outpatient ophthalmology evaluations
case management
OT evaluations
Will follow
Subjective/Objective
Subjective Data
Date of Service: January 13, 2025
Objective Data
Vital Signs
Temp Pulse Resp BP Pulse Ox
36.6 C 78 12 134/69 99
01/13/25 07:56 01/13/25 07:56 01/13/25 07:56 01/13/25 07:56 01/13/25 07:56
Lab Results
01/13/25 05:29
01/13/25 05:29
Sodium 139 mmol/L (135-145) 01/13/25 05:29
Potassium 4.3 mmol/L (3.5-5.1) 01/13/25 05:29
BUN 15 mg/dl (7-17) 01/13/25 05:29
Glucose 221 mg/dl (70-99) H 01/13/25 05:29
Calcium 9.3 mg/dl (8.4-10.2) 01/13/25 05:29
Patient Allergies
No Known Allergies Allergy (Verified 04/29/24 00:02)
Past History
Past History
ED Past Medical History: Asthma, Other (MS since age 20 yo with visual changes that he wore glasses for to help correct), Other (Complex migraines) and Other (Transgender male)
ED Past Surgical History: Appendectomy
Social History
Tobacco: Smoker
Alcohol: None
Personal:
Living: with family
Family History
Family History: Other (Noncontributory)
Medications
-
Medications:
Generic Name Dose Route Start Last Admin
Trade Name Freq PRN Reason Stop Dose Admin
Acetaminophen 650 mg 01/11/25 04:17
Acetaminophen 325 Mg Tablet PO 02/08/25 04:16
Q4HPRN PRN
Mild Pain / Temp > 101
Albuterol Sulfate 2.5 mg 01/11/25 04:17
Albuterol Nebs 2.5 Mg/3 Ml Ampul INH
R Q4HPRN PRN
SOB
Protocol
Dextrose 12.5 grams 01/13/25 08:27
Dextrose 50% (0.5 Grams/Ml) 50 Ml Syringe IV 02/10/25 08:26
[id number] PRN
hypoglycemia
Protocol
Glucagon 1 mg 01/13/25 08:27
Glucagon 1 Mg Vial IM 02/10/25 08:26
PRN PRN
hypoglycemia
Protocol
Methylprednisolone Sodium 258 mls @ 258 mls/hr 01/11/25 18:00 01/12/25 17:14
Succinate 1,000 mg/ Sodium IV 01/15/25 18:59 258 mls
Chloride Q24H TABITHA Administration
Insulin Aspart 0 units 01/13/25 11:30
Insulin Aspart Low Resistance 300 Units/3 Ml Pen.Injctr SC 02/10/25 11:29
AC TABITHA
Protocol
Sodium Chloride 0 flush 01/11/25 05:00
Sodium Chloride 0.9% (Flush) Syringe IV 02/08/25 04:59
PER PROTOCOL TABITHA
[2025-01-13] MEDS: ATIVAN 1 MG PO (10:31)
--- NOTE | 2025-01-13 11:48 | W.PN.HOSP.TC ---
Today's Communication/Plan
-
await MRI
continue IV steroids
follow Neuro recs
Assessment / Plan
Assessment / Plan
Assessment:
suspected MS Flare
- continue IV Solu-Medrol 1g daily, day 4
- await MRI brain and C spine w/wo contrast
- follow Neurology recs
- PT/OT - RW given to patient
DVT Prophylaxis: SCDs
Code Status: Full
Anticipated Discharge: 24 - 48 hours
Subjective/Interval History
-
Date of Service: January 13, 2025
resting comfortably
visual blurriness improving
Objective Data
-
Labs:
Laboratory Results
01/13/25
05:29
WBC 17.1 H
Hgb 14.5
Hct 40.3
Plt Count 300
Sodium 139
Potassium 4.3
Chloride 108 H
Carbon Dioxide 23
BUN 15
Creatinine 0.5 L
Glucose 221 H
Calcium 9.3
Total Bilirubin 0.4
AST 14
ALT 29
Alkaline Phosphatase 92
Vital Signs:
Vital Signs
Temp Pulse Resp BP Pulse Ox
97.9 F 78 12 134/69 99
01/13/25 07:56 01/13/25 07:56 01/13/25 07:56 01/13/25 07:56 01/13/25 10:00
I&O
01/12/25 01/13/25 01/14/25
06:59 06:59 06:59
Intake Total 860 / 860 1380 / 1380
Balance 860 / 860 1380 / 1380
Physical Exam
-
General: No Apparent Distress
HEENT: Normocephalic and Atraumatic
Respiratory: Negative Wheezes
Cardiac: Regular Rhythm and S1/S2
GI: Soft and Nontender
Neuro: AO x 3
Psych: Calm
Data Reviewed
-
Total Time Spent with Patient (in minutes): 42
Labs: Labs Reviewed by me
[2025-01-13 12:32] LABS: Glucose - Point of Care 185 mg/dl (70-99)
--- NOTE | 2025-01-13 13:56 | W.PN.NEURO.1 ---
Addendum entered and electronically signed by Tone Ivory MD 01/13/25 14:35:
Studies reviewed.
I have personally examined the patient. I reviewed and agree with the LINE CLOSER's Note.
My addenda:
Awake, alert, interactive. No acute distress.
Speech intact.
Follows 2-step requests w/o difficulty. No tremor.
Extra-ocular movements grossly intact.
Facial movements full and symmetric. Hearing intact to normal conversational volume.
Normal UE movements bilaterally.
Neck: full ROM.
Chest: no dyspnea
Heart: no JVD
Ext: (-) Clubbing, (-) Cyanosis, (-) Edema
IMPRESSIONS/RECOMMENDATIONS:
Abrupt onset of change of vision involving the left eye and diplopia, greater weakness in the left upper and lower extremity with gait dysfunction
Most likely all due to recrudescence and worsening of underlying multiple sclerosis as there is no evidence at this time of an enhancing lesion by MRI imaging of the brain or cervical spine
Would complete dosing of methylprednisolone for a total of 5 doses as the patient will likely have a delayed till the start of routine antimultiple sclerosis regimen
Continue rehabilitation evaluations
outpatient ophthalmology evaluation
Start vitamin D3 replacement routinely
D/W patient
Will continue to follow as outpatient.
Original Note:
Documented by User: Silvana Guerrero NP 01/13/25 14:08
Today's Communication / Plan
-
.
Neuro Assessment/Plan
Assessment
Patient is a 29y M with PMH significant for MS (not on disease modifying therapy due to insurance issues) who presented to [facility] on 01/11/2025 complaining of L sided weakness, unsteady gait and vision changes.
MRI Brain 01/13/25: Stable white matter lesions in keeping with demyelinating lesions of multiple sclerosis, compared to prior exam 12/11/2023. No suspicious enhancement.
MRI Cervical Spine 01/13/25: Subtle patchy T2/STIR hyperintense signal within the mid cervical spinal cord at the C4-5 level, new from prior and suspicious for mild demyelinating disease in this region. No abnormal enhancement to suggest active
disease. No significant degenerative change.
I. Progressive of extensive multiple sclerosis disease burden in a patient not routinely on disease modifying therapy due to insurance issues.
II. No evidence of enhancing lesions to support active MS flare.
Plan
-Continue IV steroids, total dosing for 5 days; despite lack of enhancing lesions, due to patient having significant improvement in symptoms.
-Needs to follow with neurology outpatient to get started on disease modifying therapy.
-Initiate vitamin D3 50mcg PO daily indefinitely given historically low levels.
-Outpatient ophthalmology evaluations
-Case management following
-PT/OT
Will follow.
Subjective/Objective
Subjective Data
Date of Service: January 13, 2025
No acute events overnight. Patient reports that his left-sided strength is feeling back to baseline. His vision has also improved as far as blurriness, but he still is having diplopia. His gait still feels unsteady and he needs a walker for
ambulation, he does not use a walker at baseline.
Objective Data
Vital Signs
Temp Pulse Resp BP Pulse Ox
97.9 F 78 12 134/69 99
01/13/25 07:56 01/13/25 07:56 01/13/25 07:56 01/13/25 07:56 01/13/25 10:00
Lab Results
01/13/25 05:29
01/13/25 05:29
Sodium 139 mmol/L (135-145) 01/13/25 05:29
Potassium 4.3 mmol/L (3.5-5.1) 01/13/25 05:29
BUN 15 mg/dl (7-17) 01/13/25 05:29
Glucose 221 mg/dl (70-99) H 01/13/25 05:29
Calcium 9.3 mg/dl (8.4-10.2) 01/13/25 05:29
Patient Allergies
No Known Allergies Allergy (Verified 04/29/24 00:02)
Review of Systems
-
History Source: Patient
EENT: Negative Blurry Vision or Swallowing Difficulty
Respiratory: Negative Cough or Trouble Breathing
Cardiac: Negative Chest Pain or Palpitations
Genitourinary: Negative Incontinence
Neuro: Ataxia; Negative Dizzy, Headache, Weakness, Numbness, Tremors or Speech Problem
Physical Exam
-
General: Well Developed, Well Nourished and No Apparent Distress
Eyes: No Ptosis and PERRLA
HEENT: Normocephalic and Atraumatic
Neck: Full Range of Motion
Respiratory: No Dyspnea
GI: Non-distended
Extended Neurological Exam
Mood & Affect: Mood Unremarkable and Affect Unremarkable
Attention Span & Concentration: Awake, Alert and Interactive
Memory: Unremarkable and Able to Recall
Tremor: Hand Tremor Absent and Head Tremor Absent
Involuntary Movement: None
Speech: Quality Unremarkable, Quantity Unremarkable and Rate of Production Unremarkable
Cranial Nerve II: Left Eye: Pupillary Reactivity Unremarkable, Pupillary Size Unremarkable and Visual Casiano Intact
Cranial Nerve II: Right Eye: Pupillary Reactivity Unremarkable, Pupillary Size Unremarkable and Visual Casiano Intact
Cranial Nerves III, IV, : Extraocular Movement: Extraocular Movement Full in all Directions and Nystagmus with Extreme Gaze to Right
Cranial Nerve VII: Facial Symmetry: Normal Facial Symmetry
Cranial Nerve VIII: Hearing: Unremarkable Hearing to Normal Conversational Volume
Cranial Nerves IX, X: Palate Movement: Palate Elevation Symmetric
Cranial Nerve XI: Shoulder Shrug: Unremarkable
Cranial Nerve XII: Tongue Protusion: Midline
Muscle Strength, Overall: Full Throughout
Pronator Drift: No Drift in Upper Extremities and No Drift in Lower Extremities
Coordination: [id number] Testing Unremarkable
Data Reviewed
-
MRI Head: Image Reviewed
MRI Cervical Spine: Image Reviewed
Labs: Report Reviewed
Reviewed with: Physician and Patient
Medications
-
Active Medications
Generic Name Dose Route Start Last Admin
Trade Name Freq PRN Reason Stop Dose Admin
Acetaminophen 650 mg 01/11/25 04:17
Acetaminophen 325 Mg Tablet PO 02/08/25 04:16
Q4HPRN PRN
Mild Pain / Temp > 101
Albuterol Sulfate 2.5 mg 01/11/25 04:17
Albuterol Nebs 2.5 Mg/3 Ml Ampul INH
R Q4HPRN PRN
SOB
Protocol
Dextrose 12.5 grams 01/13/25 08:27
Dextrose 50% (0.5 Grams/Ml) 50 Ml Syringe IV 02/10/25 08:26
[id number] PRN
hypoglycemia
Protocol
Glucagon 1 mg 01/13/25 08:27
Glucagon 1 Mg Vial IM 02/10/25 08:26
PRN PRN
hypoglycemia
Protocol
Methylprednisolone Sodium 258 mls @ 258 mls/hr 01/13/25 14:00
Succinate 1,000 mg/ Sodium IV 01/15/25 14:59
Chloride Q24H TABITHA
Insulin Aspart 0 units 01/13/25 11:30
Insulin Aspart Low Resistance 300 Units/3 Ml Pen.Injctr SC 02/10/25 11:29
AC TABITHA
Protocol
Sodium Chloride 0 flush 01/11/25 05:00
Sodium Chloride 0.9% (Flush) Syringe IV 02/08/25 04:59
PER PROTOCOL TABITHA
Home Medications
�Medication �Instructions �Recorded
No Meds [No Current Medications] 01/11/25

Documented by User: Tone Ivory MD 01/13/25 14:33
Past History
Past History
ED Past Medical History: Asthma, Other (MS since age 20 yo with visual changes that he wore glasses for to help correct), Other (Complex migraines) and Other (Transgender male)
ED Past Surgical History: Appendectomy
Social History
Tobacco: Smoker
Alcohol: None
Personal:
Living: with family
Family History
Family History: Other (Noncontributory)
Medications
-
Medications:
Generic Name Dose Route Start Last Admin
Trade Name Freq PRN Reason Stop Dose Admin
Acetaminophen 650 mg 01/11/25 04:17
Acetaminophen 325 Mg Tablet PO 02/08/25 04:16
Q4HPRN PRN
Mild Pain / Temp > 101
Albuterol Sulfate 2.5 mg 01/11/25 04:17
Albuterol Nebs 2.5 Mg/3 Ml Ampul INH
R Q4HPRN PRN
SOB
Protocol
Cholecalciferol 50 mcg 01/13/25 14:15
Cholecalciferol (Vitamin D3) 50 Mcg Tablet (2,000 Units) PO 02/10/25 14:14
DAILY TABITHA
Dextrose 12.5 grams 01/13/25 08:27
Dextrose 50% (0.5 Grams/Ml) 50 Ml Syringe IV 02/10/25 08:26
[id number] PRN
hypoglycemia
Protocol
Glucagon 1 mg 01/13/25 08:27
Glucagon 1 Mg Vial IM 02/10/25 08:26
PRN PRN
hypoglycemia
Protocol
Methylprednisolone Sodium 258 mls @ 258 mls/hr 01/13/25 14:00
Succinate 1,000 mg/ Sodium IV 01/15/25 14:59
Chloride Q24H TABITHA
Insulin Aspart 0 units 01/13/25 11:30
Insulin Aspart Low Resistance 300 Units/3 Ml Pen.Injctr SC 02/10/25 11:29
[facility]
Protocol
Sodium Chloride 0 flush 01/11/25 05:00
Sodium Chloride 0.9% (Flush) Syringe IV 02/08/25 04:59
PER PROTOCOL TABITHA
[2025-01-13] MEDS: NOVOLOG FLEXPEN-LOW RESISTANCE SC (15:29)
[2025-01-13 15:45] VITALS: BP 113/66
[2025-01-13] MEDS: VITAMIN D3 (cholecalciferol) 50 MCG PO (15:45)
[2025-01-13] MEDS: SOLU-MEDROL 258 MG IV (15:46)
[2025-01-13 16:46] LABS: Glucose - Point of Care 237 mg/dl (70-99)
[2025-01-13] MEDS: NOVOLOG FLEXPEN-LOW RESISTANCE 2 UNITS SC (18:24)
[2025-01-13 22:04] LABS: Glucose - Point of Care 212 mg/dl (70-99)
[2025-01-14 00:01] VITALS: BP 103/71; BP 118/67; BP 119/79; PULSE 61; PULSE 68; PULSE 89
[2025-01-14 06:06] VITALS: BMI 32.1
[2025-01-14 06:29] LABS: Hematocrit 39.8 % (37.0-47.0); Hemoglobin 14.3 g/dL (12.0-16.0); Mean Corp Hgb Conc. 35.9 g/dL (33.0-37.0); Mean Corpuscular Volume 83.1 fL (81.0-99.0); Platelet Count 292 10^3/uL (130-400); Red Cell Dist. Width 11.9 % (11.5-14.5)
[2025-01-14 07:24] LABS: ALT (SGPT) 28 U/L (0-35); AST (SGOT) 14 U/L (14-36); Albumin 4.2 g/dl (3.5-5.0); Alkaline Phosphatase 75 U/L (38-126); Blood Urea Nitrogen 17 mg/dl (7-17); Calcium 9.5 mg/dl (8.4-10.2); Carbon Dioxide 23 mmol/L (22-30); Chloride 108 mmol/L (98-107); Estimated Creatinine Clearance > 125 ml/min; Glucose 223 mg/dl (70-99); Potassium 4.2 mmol/L (3.5-5.1); Sodium 136 mmol/L (135-145); Total Protein 7.1 g/dl (6.3-8.2); eGFR > 60.00
[2025-01-14 08:01] VITALS: BP 106/63
[2025-01-14] MEDS: VITAMIN D3 (cholecalciferol) 50 MCG PO (09:57)
[2025-01-14] MEDS: NOVOLOG FLEXPEN-LOW RESISTANCE 1 UNITS SC (09:57)
[2025-01-14 10:00] LABS: Glucose - Point of Care 152 mg/dl (70-99)
[2025-01-14 11:46] LABS: Glycohemoglobin (HgbA1c) 5.6 % (4.0-5.6)
--- NOTE | 2025-01-14 11:51 | CM ---
Addendum entered by Mounika Alvarado RN 01/14/25 15:24:
Spoke with Kelly foley she said her friend Nirali will drive him home today around 5 pm.
left an out of work note for patient .
Original Note:
Spoke with Airam from [facility] pt needs to provide paper work to [facility] to apply for coverage.
Patient was provided with a walker for discharge.
PLAN Home no needs
--- NOTE | 2025-01-14 14:06 | W.PN.HOSP.TC ---
Today's Communication/Plan
-
dc to home
Assessment / Plan
Assessment / Plan
Assessment:
suspected MS Flare
- continue IV Solu-Medrol 1g daily, day 11/01
- MRI studies without active demyelination lesions
- PT/OT - RW given to patient
- OP neuro f/u
DVT Prophylaxis: SCDs
Code Status: Full
Anticipated Discharge: Today
Subjective/Interval History
-
Date of Service: January 14, 2025
no new complaints
vision changes improving slowly
Objective Data
-
Labs:
Laboratory Results
01/14/25
06:17
WBC 16.6 H
Hgb 14.3
Hct 39.8
Plt Count 292
Sodium 136
Potassium 4.2
Chloride 108 H
Carbon Dioxide 23
BUN 17
Creatinine 0.5 L
Glucose 223 H
Calcium 9.5
Total Bilirubin 0.4
AST 14
ALT 28
Alkaline Phosphatase 75
Vital Signs:
Vital Signs
Temp Pulse Resp BP Pulse Ox
98.3 F 67 17 106/63 100
01/14/25 08:01 01/14/25 08:01 01/14/25 08:01 01/14/25 08:01 01/14/25 11:30
I&O
01/13/25 01/14/25 01/15/25
06:59 06:59 06:59
Intake Total 1380 / 1380 720 / 720
Balance 1380 / 1380 720 / 720
Physical Exam
-
General: No Apparent Distress
HEENT: Normocephalic and Atraumatic
Respiratory: Negative Wheezes
Cardiac: Regular Rhythm and S1/S2
GI: Soft
Neuro: AO x 3
Psych: Calm
Data Reviewed
-
Total Time Spent with Patient (in minutes): 41
Labs: Labs Reviewed by me
--- NOTE | 2025-01-14 14:08 | W.DS.TRANS ---
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
-
Discharge Instructions:
Discharge Diagnosis/Procedures MS flare
Diet Regular
Activity As tolerated,With Walker
Instructions:
Stand-Alone Forms:
Changes to Home Medications: No
Discharge Medications:
DC Medications w/original date entered in [facility]
cholecalciferol (vitamin D3) 50 mcg (2,000 unit) tablet 50 mcg PO DAILY #100 tabs 01/14/25
Home Medication Changes
Pending Results: No
Total time spent discharging patient (in min): 41
[2025-01-14] MEDS: SOLU-MEDROL 258 MG IV (14:29)
[2025-01-14 14:35] LABS: Glucose - Point of Care 205 mg/dl (70-99)
[2025-01-14] MEDS: NOVOLOG FLEXPEN-LOW RESISTANCE 2 UNITS SC (14:37)
[2025-01-14 15:00] VITALS: BP 124/68
== END 2025-01-14 16:29 | disposition home or self-care (01) | DRG 59 ==
LOC: 3 WEST ACU 02:56
PROVIDERS: Emergency Medicine; ADMITTING PHYSICIAN Hospitalist; ATTENDING PHYSICIAN Internal Medicine; CONSULT PHYSICIAN Psychiatry & Neurology Neurology; EMERGENCY PHYSICIAN Emergency Medicine
DX: G35 Multiple sclerosis (principal); H46.9 Unspecified optic neuritis; F17.200 Nicotine dependence, unspecified, uncomplicated; F64.0 Transsexualism; Z79.899 Other long term (current) drug therapy
CPT/HCPCS: 70553; 72156; 80048; 80053; 81003; 81015; 82962; 83036; 85025; 85027; 97162; 97166; 99285; A9575

== ENCOUNTER 2025-03-13 01:13 | Emergency (ER) | payer SELFPAY ==
[2025-03-13 01:15] VITALS: BP 128/78
--- NOTE | 2025-03-13 01:46 | ED.GENMED ---
History of Present Illness
<Stacey Ng MD, Resident - Last Filed: 03/13/25 05:21>
General
Chief Complaint: Numbness
Source: patient
Time Seen by Provider: 03/13/25 01:24
History of Present Illness
History of Present Illness:
Patient is a 29-year-old male with a history of diagnosed Multiple Sclerosis who presents to the emergency department with numbness of both feet and tingling of the hands for 4 to 5 days. He used to be managed for his multiple sclerosis by
neurology and used to have primary care provider but unfortunately due to a lapse in insurance coverage he is no longer taking medications or sees a primary care provider. 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
has switched his workplace to [employer] after a lapse of insurance and should be covered within the next week and a half or if so after being employed at [employer] for a while. Patient symptoms started first with his left foot having numbness with tingling
at the toes and it worked its way up to his calf. numbness also started on his right foot and was localized to his toes and only his foot it did not spread upwards. unfortunately, then his fingers bilaterally started to tingle and this prompted
him to present to the emergency department for fears of exacerbation of his ongoing MS. He can walk but has dizziness at times. He does not have any visual disturbances. He does not have any shortness of breath chest tightness or syncope. He
does not have any nausea vomiting or diarrhea.
Past History
<Stacey Ng MD, Resident - Last Filed: 03/13/25 05:21>
Past History
ED Past Medical History: Asthma, Other (MS since age 20 yo with visual changes that he wore glasses for to help correct), Other (Complex migraines) and Other (Transgender male)
ED Past Surgical History: Appendectomy
Social History
Tobacco: Former smoker
Alcohol: None
Drug: Marijuana (occasional for pain)
Personal:
Living: with family
Family History
Family History: Other (Noncontributory)
Review of Systems
<Stacey Ng MD, Resident - Last Filed: 03/13/25 05:21>
Review of Systems
Constitutional: Reports no symptoms
EENT: Reports no symptoms
Respiratory: Reports no symptoms
Cardiac: Reports no symptoms
ABD/GI: Reports no symptoms
: Reports no symptoms
Neurological: Reports numbness ( numbness and tingling of the feet bilaterally, with limited spread upwards to left calf. Tingling of tips of fingers bilaterally.)
Endocrine: Reports no symptoms
Hematologic/Lymphatic: Reports no symptoms
Phy Exam
<Stacey Ng MD, Resident - Last Filed: 03/13/25 05:21>
General Physical Exam
General Presentation: well appearing
General age: appears stated age
General Skin: warm and dry
General Habitus: obese
General Mental: alert
Eye Exam
Eye Exam: PERRL and EOMI
Cardiovascular Exam
Cardiovascular Exam: regular rate/rhythm, no edema, no gallop, no JVD and no murmur
Pulmonary Exam
Pulmonary Exam: lungs clear, no respiratory distress, no rales, chest non tender, no crackles, no rhonchi, no stridor, no wheezing and no cough
Musculoskeletal Exam
Musculoskeletal Exam: full ROM and no edema
Skin Exam
Skin Exam: normal color and warm/dry
Psychiatric Exam
Psychiatric Exam: normal mood/affect
Course
<Stacey Ng MD, Resident - Last Filed: 03/13/25 05:21>
Orders/Labs/Results
Orders:
Orders
03/13/25 02:14
Prednisone [Deltasone] 60 mg PO NOW STA
Vital Signs
Initial and Last Documented VS:
Initial Vital Signs
Temp Pulse Resp BP Pulse Ox
98.8 F 60 18 128/78 100
03/13/25 01:15 03/13/25 01:15 03/13/25 01:15 03/13/25 01:15 03/13/25 01:15
Last Documented Vital Signs
Temp Pulse Resp BP Pulse Ox
98.8 F 72 18 116/73 99
03/13/25 01:15 03/13/25 01:52 03/13/25 01:15 03/13/25 01:50 03/13/25 01:52
<Martha Pavon DO - Last Filed: 03/13/25 07:41>
Orders/Labs/Results
Orders:
Orders
03/13/25 02:14
Prednisone [Deltasone] 60 mg PO NOW STA
Vital Signs
Initial and Last Documented VS:
Initial Vital Signs
Temp Pulse Resp BP Pulse Ox
98.8 F 60 18 128/78 100
03/13/25 01:15 03/13/25 01:15 03/13/25 01:15 03/13/25 01:15 03/13/25 01:15
Last Documented Vital Signs
Temp Pulse Resp BP Pulse Ox
98.8 F 72 18 116/73 99
03/13/25 01:15 03/13/25 01:52 03/13/25 01:15 03/13/25 01:50 03/13/25 01:52
<Stacey Ng MD, Resident - Last Filed: 03/13/25 05:21>
*Pulse Oximetry
SaO2: 100
Oxygen Mode of Delivery: Room air
<Martha Pavon DO - Last Filed: 03/13/25 07:41>
*Pulse Oximetry
Patient hypoxic: no
*Critical Care Note
Total Time (30-74mins, 75-104mins- exclusive of procedures): Not Applicable
<Stacey Ng MD, Resident - Last Filed: 03/13/25 05:21>
Update Note
Update Note:
Problem List:
Numbness and tingling of the left lower and right lower limbs
tingling of the fingertips bilaterally
Plan:
prednisone 60 mg
Patient will be sent home with a prednisone taper
Differential Diagnoses:
acute exacerbation of multiple sclerosis
Radiology: not applicable
EKG: not applicable
Labs: not applicable
Updates:
patient has a history of diagnosed Demix maintained on Copaxone in the past but discontinued due to lapse in healthcare coverage. Patient has been hospitalized for previous MS flares.
Based on patient history and exam findings this is concerning for acute MS flare. patient currently experiencing mild symptoms.
Gave patient 60 mg of prednisone.
Will send patient home with a prednisone taper
. Has been instructed to follow-up with his primary care provider and to follow-up with neurology after discharge.
Patient would like to be discharged. There are no barriers that impede the patient for being discharged from the emergency department.
ED Attending Note
<Stacey Ng MD, Resident - Last Filed: 03/13/25 05:21>
-
Portions of this chart may have been created with voice recognition software.� Occasional wrong word or��sound alike� substitutions may have occurred due to the inherent limitations of voice recognition software.
<Martha Pavon DO - Last Filed: 03/13/25 07:41>
ED Attending Note
Patient seen and examined by attending physician: Yes
I performed a history and physical exam of patient and discussed management with resident, I reviewed resident's note and agree with documented findings and plan of care.: Yes
ED Attending Note:
29-year-old trans gender male with history of MS, initially diagnosed at age 20. Had been maintained on Copaxone in the past but discontinued with lapse in healthcare coverage.
Previous hospitalizations for MS flare, most recently December of this year when he presented with recurrent optic neuritis and left lower extremity weakness. MRI of the brain and cervical spine showed no new demyelination's. He presents with several
day history of paresthesias, numbness left foot and left lower leg as well as tingling of his right foot and now tingling of the tips of his fingers bilaterally. No weakness, no vision difficulty. No difficulty moving his bowels or bladder. No
headache.
Currently working at [employer] for the past 6 months and states he will have healthcare coverage within the next 7 days.
He plan to follow-up with neurology as recommended by neurologist during consult while hospitalized.
29-year-old transgender male appears his stated age. Bright and alert, pleasant, appears in no acute distress.
Awake alert and oriented x 3. No definitive focal neuro deficits. Motor strength is 5/5 bilaterally. Gait is steady.
History concerning for acute MS flare, mild symptoms in nature.
Recommend course of oral steroids with plan for prompt follow-up with neurology for further evaluation. Ultimately patient will require resumption of Copaxone versus other disease modifying therapy.
Return precautions discussed.
Discharge Plan
Departure
Patient Disposition: Home (Routine Discharge)
Date of Disposition: 03/13/25
Time of Disposition: 02:27
Patient with high blood pressure during this ER visit?: No
Condition: Good
Discharge Problem:
Exacerbation of multiple sclerosis
Instructions: Multiple sclerosis relapse in adults (DC)
Prescriptions:
New
prednisone 10 mg Tablet
See Rx Instructions .ROUTE .COMPLEX Qty: 45 0RF
Rx Instructions:
Take By Mouth:
50 mg daily x3 days, 40 mg daily x3 days,
30 mg daily x3 days, 20 mg daily x3 days,
10 mg daily x3 days
No Action
cholecalciferol (vitamin D3) 50 mcg (2,000 unit) Tablet
50 mcg PO DAILY Qty: 100 0RF
Referrals:
[facility] [Outside] - Call in 1-3 days for appt
Ivory,Tone D., MD [Active, Neurology] - Call in 1-3 days for appt
NONE,* [Family Provider, Internal Medicine]
Interventions
Interventions:
*Risk Screen - Suicide Last Done: 03/13/25 01:15
*General Assessment Last Done: 03/13/25 01:55
*Neglect/Abuse Screening Last Done: 03/13/25 01:15
*ED- Fall Risk Assessment Last Done: 03/13/25 01:55
*ED COVID-19 Vaccine History Last Done: 03/13/25 01:55
*Nursing Disposition Last Done: 03/13/25 02:34
ED- Neurological Assessment Last Done: 03/13/25 01:59
Discharge Date and Time
Discharge Date/Time: 03/13/25 02:35
Print Language: ECUADOREAN
[2025-03-13 01:50] VITALS: BP 116/73
[2025-03-13 01:54] VITALS: BMI 33.5
[2025-03-13] MEDS: DELTASONE 60 MG PO (02:25)
== END 2025-03-13 02:35 | disposition home or self-care (01) ==
LOC: EMR 01:13
PROVIDERS: EMERGENCY PHYSICIAN Emergency Medicine
DX: G35 Multiple sclerosis (principal); R53.1 Weakness; R20.0 Anesthesia of skin; R20.2 Paresthesia of skin; J45.909 Unspecified asthma, uncomplicated; G43.109 Migraine with aura, not intractable, without status migrainosus; F64.0 Transsexualism; Z87.891 Personal history of nicotine dependence; Z59.71 Insufficient health insurance coverage; Z91.141 Patient's other noncompliance with medication regimen due to financial hardship
CPT/HCPCS: 99283

== ENCOUNTER 2025-03-21 20:37 | Inpatient (IN) | payer SELFPAY ==
[2025-03-21 16:10] VITALS: BP 119/82
[2025-03-21 17:06] LABS: Blood Urea Nitrogen 20 mg/dl (7-17); Calcium 9.3 mg/dl (8.4-10.2); Carbon Dioxide 22 mmol/L (22-30); Chloride 104 mmol/L (98-107); Glucose 162 mg/dl (70-99); Sodium 135 mmol/L (135-145); eGFR > 60.00
--- NOTE | 2025-03-21 19:17 | ED.GENMED ---
History of Present Illness
General
Chief Complaint: Numbness
Source: patient, records, previous radiology exam and previous hospital records
Exam Limitations: none
Time Seen by Provider: 03/21/25 19:02
Nursing documentation reviewed up to this point in time: agreed with
History of Present Illness
History of Present Illness:
29-year-old female previously transitioning from a male, presents with lower extremity numbness weakness progressive, diagnosed with an MS flare recently started on slow steroid taper 60 mg initially patient is now down to 30 states symptoms are
getting worse, numbness is going up into his abdomen, no bowel or bladder changes, he is having trouble walking having to grab onto things, no fevers, no nausea or vomiting, on no chronic therapy for MS due to insurance reasons though states he just
applied for insurance to his job at [employer] been admitted previously with similar presentations treated with steroids seen by neurology
Past History
Past History
ED Past Medical History: Asthma, Other (MS since age 20 yo with visual changes that he wore glasses for to help correct), Other (Complex migraines) and Other (Transgender male)
ED Past Surgical History: Appendectomy
Social History
Tobacco: Former smoker
Alcohol: None
Drug: Marijuana (occasional for pain)
Personal:
Living: with family
Employment: Employed
Family History
Family History: Other (Noncontributory)
Review of Systems
Review of Systems
All Other Systems: Not applicable
Constitutional: Reports fatigue; Denies fever
Respiratory: Reports no symptoms; Denies trouble breathing
Cardiac: Reports no symptoms
ABD/GI: Reports no symptoms
Neurological: Reports weakness and numbness
Phy Exam
Physical Exam
Physical Exam:
Physical Exam
General: no apparent distress, not acutely ill
Neck: No jaundice
Heart: s1/s2 regular rate and rhythm, no murmur. equal radial pulses.
Lungs: no acute respiratory distress. clear bilaterally
Abdomen: Nontender
Neuro: alert and oriented. Upper extremity muscle strength intact mild subjective numbness of the arms lower extremity 4+ bilaterally, positive subjective numbness
Skin: no rash
Psychiatric: well kept. interactive and cooperative
Extremities: no edema.
Course
Orders/Labs/Results
Orders:
Orders
03/21/25 Breakfast
Regular
At Your Request: Full Participation
03/21/25 16:22
Basic Metabolic Panel Urgent
03/21/25 19:38
Add On- LAB Urgent
Tests Added?: esr/crp/hcg qualitative
03/21/25 20:04
Admit/Transfer Patient As Directed
Co-Sign Provider:
Level of Care: Inpatient admission
Assign to:: Medical/Surgical
Physician / Group: bon
Diagnosis: MS flare
Reason for Hospitalization: MS flare
Expected length of stay greater than two midnights?: Yes
ELOS- Estimated Length of Stay in days: 3
I certify the patient meets the requirements for IP care: Yes
PRN Pain Medication Management As Directed
May give lesser potent ordered pain med per pt: Yes
preference::
Protocol:: Medication orders for pain may be administered in a
manner that supports deferring to patient preference
when the pt is:
- Requesting an ordered lesser potent pain medication.
Least to most potent pain medications are defined
as: acetaminophen < NSAID < tramadol < opioids
(morphine, oxycodone, hydromorphone).
- Requesting a lesser dose of the same medication IF
ORDERED.
- Requesting a less intrusive route of administration
if both routes are prescribed by the provider (PO <
IV).
03/21/25 20:05
Code Status As Directed
Resuscitation Status: Full Code
03/21/25 20:10
C-Reactive Protein Urgent
Comment: ADD ON
Complete Blood Count/With Diff Urgent
Erythrocyte Sed Rate Urgent
Comment: ADD ON
HCG, Serum Qualitative Screen Urgent
Comment: ADD ON
03/21/25 21:00
Acetaminophen [Tylenol] 650 mg PO Q4HPRN PRN
Bisacodyl [Dulcolax] 10 mg RECTAL [id number] PRN
Docusate W/Senna [Senokot-S] 1 tablet PO BIDPRN PRN
Polyethylene Glycol Powder [Miralax] 17 grams PO DAILYPRN PRN
03/21/25 21:00
NEUROLOGY CONSULT Routine
Consulting Provider: Anabelle Tse
Was physician already notified: Yes
Thoracic Spine W/O & With [MR Thoracic Spine W/o & With] Routine
Comment:
Reason For Exam: numbness and weakness
Recent pill cam endoscopy?: No
Activity As Directed
Activity Level: As Tolerated
Vital Signs As Directed
Frequency: Per unit guidelines
Ot Eval And Treat Routine
Pt Eval And Treat Routine
Activity Level: As Tolerated
DX Deep Vein Thrombosis Video Routine
03/22/25 18:00
Enoxaparin Sodium [Lovenox] 40 mg SC QPM
Abnormal Lab Results
03/21/25 03/21/25
16:22 20:10
WBC 13.8 H 10^3/uL
(4.8-10.8)
Abs Immat Gran (auto) 0.1 H 10^3/uL
(0-0.05)
Absolute Neuts (auto) 11.4 H 10^3/uL
(1.4-6.5)
Immature Gran % 0.7 H %
(0-0.5)
Neutrophils % 82.2 H %
(42.2-75.2)
Lymphocytes % 13.8 L %
(20.5-51.1)
BUN 20 H mg/dl
(7-17)
Glucose 162 H mg/dl
(70-99)
03/21/25 20:10
03/21/25 16:22
Vital Signs
Initial and Last Documented VS:
Initial Vital Signs
Temp Pulse Resp BP Pulse Ox
98.4 F 89 18 119/82 97
03/21/25 16:10 03/21/25 16:10 03/21/25 16:10 03/21/25 16:10 03/21/25 16:10
Last Documented Vital Signs
Temp Pulse Resp BP Pulse Ox
98.9 F 66 16 125/64 97
03/21/25 21:11 03/21/25 21:11 03/21/25 21:11 03/21/25 21:11 03/21/25 21:11
*Pulse Oximetry
SaO2: 97
Oxygen Mode of Delivery: Room air
Patient hypoxic: no
*Critical Care Note
Total Time (30-74mins, 75-104mins- exclusive of procedures): Not Applicable
ED Attending Note
-
Portions of this chart may have been created with voice recognition software.� Occasional wrong word or��sound alike� substitutions may have occurred due to the inherent limitations of voice recognition software.
Discharge Plan
Departure
Patient Disposition: Admit
Admit to: Med/Surg
Presentation/result/management discussed w/ accepting MD/DO: Hospitalist
Patient with high blood pressure during this ER visit?: No
Condition: Good
Covid-19: Not Applicable
Discharge Problem:
Exacerbation of multiple sclerosis
Interventions
Interventions:
*Risk Screen - Suicide Last Done: 03/21/25 21:06
*General Assessment Last Done: 03/21/25 16:14
*Neglect/Abuse Screening Last Done: 03/21/25 16:14
*ED- Fall Risk Assessment Last Done: 03/21/25 21:25
*ED COVID-19 Vaccine History Last Done: 03/21/25 16:14
*Nursing Disposition Last Done: 03/21/25 21:03
ED- Neurological Assessment Last Done: 03/21/25 20:09
Discharge Date and Time
Discharge Date/Time: 03/21/25 21:24
--- NOTE | 2025-03-21 19:46 | HPS.HSE ---
Addendum entered and electronically signed by Arnol Diaz DO 03/21/25 20:51:
Patient seen and examined independently. Agree with findings and plan as set forth by NAINA Tran.
Patient is a29y M with PMH significant for MS - not currently on active treatment - who presents to ED complaining of weakness and paresthesias in the bilateral lower extremities. Patient notes that his symptoms started about one week ago in the
LLE. He was seen in the ED at that time and started on a prednisone taper. He is currently on 30mg / day. Patient states that his symptoms have not improved - in fact, he now has similar weakness and paresthesias in the RLE and extending
proximally into the torso to the upper abdomen. He is able to move - but is using counter / furniture guarding for stability. No recent fall, injury, trauma. No fevers / chills.
Ass:
LE Weakness / Paresthesias
Multiple Sclerosis
Plan:
Admit for further evaluation and treatment.
Follow neurologic exam for changes.
MRI T-spine in the AM.
Neurology consulted for additional recommendations.
Holding on high-dose steroids for now pending imaging studies.
Original Note:
Family Physician
-
Family Physician: NOT KNOW UNKNOWN - PT DOES
Chief Complaint
-
numbness and weakness
History of Present Illness
29-year-old with PMH for MS not on any medication presented to us with numbness, tingling of b/l LE going up to his abdomen. patient feels pins and needles on LE.patient is off balance and legs are heavy and swollen when patient try to walk.
patient stated decreased sensation. patient complained of dizzy. denied AGRDINER, syncope. denied fever, chills, cough, congestion,chest pain, sob. denied abdominal pain,n,v,d. denied dysuria or hematuria. patient was evaluated in the ER 03/13 and was sent
home on steroid taper. at present he is on prednisone 30mg.
admitting for further management.
Medical History
Past Medical History
Past Medical History: Reports Other
Additional Past Medical History:
MS
Past Surgical History: Reports Other
Additional Past Surgical History:
appendectomy
Social History
Tobacco: Other (occasional)
Alcohol: None
Drug: None
Family History
Family History: Not pertinent
Allergies / Home Medications
Allergies reflects when Allergies were last updated in [employer].
Home Medications with original date entered in [employer]
Allergy/Medication List:
Allergies
Allergy/AdvReac Type Severity Reaction Status Date / Time
No Known Allergies Allergy Verified 03/21/25 16:15
Home Medications
cholecalciferol (vitamin D3) 50 mcg (2,000 unit) tablet 50 mcg PO DAILY #100 tabs 01/14/25
prednisone 10 mg tablet See Rx Instructions .Route .COMPLEX #45 tabs 03/13/25
Review of Systems
-
Constitutional: Reports No Symptoms
EENT: Reports No Symptoms
Respiratory: Reports No Symptoms
Cardiac: Reports No Symptoms
Abdomen/GI: Reports No Symptoms
: Reports No Symptoms
Musculoskeletal: Reports No Symptoms
Skin: Reports No Symptoms
Neurological: Reports Numbness
Endocrine: Reports No Symptoms
Hematologic/Lymphatic: Reports No Symptoms
Psych: Reports No Symptoms
Physical Exam
Vital Signs
Vital Signs
Temp Pulse Resp BP Pulse Ox
98.4 F 89 18 119/82 97
03/21/25 16:10 03/21/25 16:10 03/21/25 16:10 03/21/25 16:10 03/21/25 19:18
Physical Exam
General: Well Developed, Well Nourished and No Apparent Distress
HEENT: NormoCephalic, Moist mucous membranes and Atraumatic
Respiratory: Clear
Cardiac: S1/S2 and Regular Rhythm; No Murmur or Rub
GI: Soft, Non Tender, Non Distended and Normal Bowel Sounds; No Organomegaly
Rectal: Deferred by Provider
Musculoskeletal: No Clubbing, No Cyanosis and No Edema
Skin: No Rash
Neuro: Nonfocal/grossly intact
Psych: Calm
Laboratory Results
-
03/21/25 16:22
Laboratory Results
Total Bilirubin Cancelled 03/21/25 16:22
AST Cancelled 03/21/25 16:22
ALT Cancelled 03/21/25 16:22
Alkaline Phosphatase Cancelled 03/21/25 16:22
Data Reviewed
-
Lab Data: Labs Reviewed by me
Impression/Plan
-
#LE numbness and weakness suspect MS flare
#hxt of MS
-obtain MRI of thoracic spine
-neurology consulted
-PT/OT
#DVT Prophylaxis
-Lovenox
#CODE status
-full code
[2025-03-21 20:03] VITALS: BMI 33.8
[2025-03-21 20:37] VITALS: BP 120/74
[2025-03-21 20:38] LABS: HCG, Serum Qualitative Screen Negative
[2025-03-21 20:40] LABS: C-Reactive Protein < 5.00 mg/L (0.0-10.00)
[2025-03-21 21:05] LABS: Hematocrit 41.0 % (37.0-47.0); Hemoglobin 15.0 g/dL (12.0-16.0); Mean Corp Hgb Conc. 36.6 g/dL (33.0-37.0); Mean Corpuscular Volume 83.3 fL (81.0-99.0); Nucleated Red Blood Cells % 0 %; Platelet Count 367 10^3/uL (130-400); Red Cell Dist. Width 12.1 % (11.5-14.5)
[2025-03-21 21:11] VITALS: BP 125/64
[2025-03-21 21:32] VITALS: BMI 31.0
--- NOTE | 2025-03-21 22:00 | PTCARENOTE ---
Pt. received from ED with family at bedside. Patient admitted to floor and oriented to unit. Bed in lowest position, call mathur within reach. VSS. Plan of care ongoing.
[2025-03-22] VITALS (7 sets, daily range): BP systolic 67–131; BP diastolic 54–90; PULSE 92; O2SAT 99
--- NOTE | 2025-03-22 07:34 | CON.NEURO ---
Addendum entered and electronically signed by Anabelle Tse MD 03/23/25 16:29:
PMH: Gender dysphoria
Original Note:
Consultation
Order
Date of Consultation: 03/22/25
Requesting Provider: Isaura Michele CRNP
Reason for Consult: Management of MS
Neurology Consultation Note.
HPI: This is a 29-year-old right-handed man who presented to [facility] on 03/21/2025 with sensory deficits. According to the patient about a week ago, the patient experienced numbness from the knee down on the left side, which
prompted an ER visit. He was discharged on oral prednisone taper. However, the symptoms progressed, with numbness spreading to the right side and extending upwards. Currently, the patient reports numbness from the waist down, accompanied by a
prickly needle sensation. He is experiencing difficulty walking due to imbalance and needs to hold onto objects for support. The patient also mentions new tingling in his hands.
Typically, the patient's MS 'relapses' involve vision loss in the left eye and complete numbness and weakness on the left side, lasting 2-3 days. These episodes usually require hospitalization and steroid treatment for about a week. However, this
current episode differs as it does not involve vision loss.
The patient denies recent vaccinations, diarrhea or respiratory infections in the past two weeks. He also reports no current difficulties with urination.
Mr. Velasquez reports being diagnosed at the age of 20. He was under care of Idania Scruggs M.D. at [place], [place] and managed with Copaxone 3 times daily in the past. He has been off disease-modifying therapy due to insurance constraints.
PDMP:Testosterone Cyp 200 Mg/ml 2 ml filled in on 09/03/2024
Labs: WBCs�13.8, glucose�162, normal CRP
Brain MRI with and without gadolinium (01/13/2025) moderate T2/FLAIR hyperintense foci within the periventricular and deep subcortical white matter and cerebellum, many of which are oriented perpendicular to the corpus callosum in keeping with
demyelinating lesions of multiple sclerosis, grossly stable from prior exam 12/11/2023. No enhancement of any of these lesions to suggest active disease.
Cs pien MRI w/wo marie(01/13/2025) patchy T2/STIR hyperintense signal within the mid cervical spinal cord at the C4-5 level. No abnormal enhancement
PMH: Multiple sclerosis, vitamin D, iron deficiency, BMI 31
PSH: Appendectomy
SH: , Works at [employer] making [employer]; independent in ADLs. Uses cane/walker as needed, non-smoker, denies excessive alcohol use
FH: Diabetes
All: NKDA
ROS: General: Positive for dizziness.
HEENT: Negative for vision changes.
Neurological: Positive for numbness and tingling in legs and hands, imbalance, and sharp discomfort when stepping.
Musculoskeletal: Positive for difficulty walking, requiring assistance with a walker or cane.
Genitourinary: Negative for urinary difficulties.
General: Well developed. In no acute distress.
Cardio: Regular rate and rhythm without murmur. Extremities are without cyanosis or edema.
Neuro:
Mental Status: Alert, oriented to person, place, and date. Normal attention and recall. Good fund of knowledge. Follows complex requests across the midline. Comprehension, naming, and repetition intact. Immediate and delayed recall 3/3.
Cranial Nerves: Pupils are equally round and reactive to light. EOMs full. Visual oleary full to confrontation. No ptosis. No nystagmus. V1-V3 intact to light touch and pinprick bilaterally, symmetric. Face symmetric. Normal hearing AU. The
palate elevated well. SCMs and traps 5/5. Tongue midline. No dysarthria.
Motor: Normal bulk and tone. No pronator or arm drift. Strength 5/5 throughout except for left triceps and biceps 4 out of 5, left hip flexion�4 out of 5, right hip flexion�5- out of 5 dorsiflexion�5 out of 5. No clonus.
Reflexes: 2+ throughout the upper extremities and 3+knees. Negative clonus bilaterally
Sensory: Negative vibration at the toes ankles and knees and preserved at the fingers. Absent proprioception at the toes and ankles.
Coordination: Dysmetria on the left
Gait: deferred
Assessment and Plan:
I. Ascending paresthesias. Differential diagnosis includes thoracic myelopathy versus autoimmune polyneuropathy
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
III. Vitamin D deficiency
- Fall precaution
- Please obtain thoracic and C-spine MRI with and without contrast
- Obtain medical records from [place], [place]
- Please proceed with CSF studies (OP, CP, cell count, protein, glucose, OCB, MBP)
- MS mimickers blood work
- Continue vitamin D
- PT
- DVT prophylaxis
- The case was discussed with patient's mother, present at bedside
I personally reviewed all radiology and labs along with past medical records pertinent to current medical problems. Total time spent in patient care is 60 minutes.
Thank you for allowing us to participate in the care of this patient. We will continue to follow. Please do not hesitate to contact us with any questions or concerns.
Subjective/Objective
Subjective Data
Date of Service: March 22, 2025
Objective Data
Vital Signs
Temp Pulse Resp BP Pulse Ox
37.1 C 72 16 118/75 99
03/22/25 07:16 03/22/25 07:16 03/22/25 07:16 03/22/25 07:16 03/22/25 07:16
Lab Results
03/21/25 20:10
03/21/25 16:22
Sodium 135 mmol/L (135-145) 03/21/25 16:22
Potassium mmol/L (3.5-5.1) 03/21/25 16:22
BUN 20 mg/dl (7-17) H 03/21/25 16:22
Glucose 162 mg/dl (70-99) H 03/21/25 16:22
Calcium 9.3 mg/dl (8.4-10.2) 03/21/25 16:22
Patient Allergies
No Known Allergies Allergy (Verified 03/21/25 16:15)
Medications
-
Active Medications
Generic Name Dose Route Start Last Admin
Trade Name Freq PRN Reason Stop Dose Admin
Acetaminophen 650 mg 03/21/25 21:00
Acetaminophen 325 Mg Tablet PO 04/18/25 20:59
Q4HPRN PRN
mild pain/GARDINER/temp> 100.4F
Bisacodyl 10 mg 03/21/25 21:00
Bisacodyl 10 Mg Rectal Suppository RECTAL 04/18/25 20:59
[id number] PRN
constipation
Enoxaparin Sodium 40 mg 03/22/25 18:00
Enoxaparin Sodium 40 Mg/0.4 Ml Syringe SC 04/19/25 17:59
QPM TABITHA
Polyethylene Glycol 17 grams 03/21/25 21:00
Polyethylene Glycol Powder 17 Grams Packet PO 04/18/25 20:59
DAILYPRN PRN
constipation
Senna/Docusate Sodium 1 tablet 03/21/25 21:00
Docusate W/Senna (Sultana-Colace) Tablet PO 04/18/25 20:59
BIDPRN PRN
constipation
Sodium Chloride 0 flush 03/21/25 22:00
Sodium Chloride 0.9% (Flush) Syringe IV 04/18/25 21:59
PER PROTOCOL TABITHA
Home Medications
�Medication �Instructions �Recorded
cholecalciferol (vitamin D3) 50 50 mcg PO DAILY #100 tabs 01/14/25
mcg (2,000 unit) tablet
prednisone 10 mg tablet See Rx Instructions .Route 03/13/25
.COMPLEX #45 tabs
acetaminophen 500 mg tablet 1,000 mg PO Q6HPRN PRN mild pain 03/21/25
(Tylenol Extra Strength)
ferrous sulfate 325 mg (65 mg 325 mg PO DAILY Supplement 03/21/25
iron) tablet (Iron (ferrous
sulfate))
testosterone cypionate 200 mg/mL 100 mg IM MO@1900 HRT 03/21/25
intramuscular oil
Vital Signs and Labs
-
Vital Signs and Labs:
Vital Signs
Temp Pulse Resp BP Pulse Ox
37.1 C 72 16 118/75 99
03/22/25 07:16 03/22/25 07:16 03/22/25 07:16 03/22/25 07:16 03/22/25 07:16
Lab Results
03/21/25 20:10
03/21/25 16:22
Sodium 135 mmol/L (135-145) 03/21/25 16:22
Potassium mmol/L (3.5-5.1) 03/21/25 16:22
BUN 20 mg/dl (7-17) H 03/21/25 16:22
Glucose 162 mg/dl (70-99) H 03/21/25 16:22
Calcium 9.3 mg/dl (8.4-10.2) 03/21/25 16:22
Medications
-
Medications:
Generic Name Dose Route Start Last Admin
Trade Name Freq PRN Reason Stop Dose Admin
Acetaminophen 650 mg 03/21/25 21:00
Acetaminophen 325 Mg Tablet PO 04/18/25 20:59
Q4HPRN PRN
mild pain/GARDINER/temp> 100.4F
Bisacodyl 10 mg 03/21/25 21:00
Bisacodyl 10 Mg Rectal Suppository RECTAL 04/18/25 20:59
[id number] PRN
constipation
Enoxaparin Sodium 40 mg 03/22/25 18:00
Enoxaparin Sodium 40 Mg/0.4 Ml Syringe SC 04/19/25 17:59
QPM TABITHA
Polyethylene Glycol 17 grams 03/21/25 21:00
Polyethylene Glycol Powder 17 Grams Packet PO 04/18/25 20:59
DAILYPRN PRN
constipation
Senna/Docusate Sodium 1 tablet 03/21/25 21:00
Docusate W/Senna (Sultana-Colace) Tablet PO 04/18/25 20:59
BIDPRN PRN
constipation
Sodium Chloride 0 flush 03/21/25 22:00
Sodium Chloride 0.9% (Flush) Syringe IV 04/18/25 21:59
PER PROTOCOL TABITHA
Home Medications
-
Home Medications
cholecalciferol (vitamin D3) 50 mcg (2,000 unit) tablet 50 mcg PO DAILY #100 tabs 01/14/25
prednisone 10 mg tablet See Rx Instructions .Route .COMPLEX #45 tabs 03/13/25
acetaminophen 500 mg tablet (Tylenol Extra Strength) 1,000 mg PO Q6HPRN PRN mild pain 03/21/25
ferrous sulfate 325 mg (65 mg iron) tablet (Iron (ferrous sulfate)) 325 mg PO DAILY Supplement 03/21/25
testosterone cypionate 200 mg/mL intramuscular oil 100 mg IM MO@1900 HRT 03/21/25
[2025-03-22 11:07] LABS: INR 1.04; PT 13.9 Sec (11.4-14.6)
[2025-03-22 11:32] LABS: Vitamin B12 780 pg/ml (239-931)
--- NOTE | 2025-03-22 13:04 | CM ---
Reviewed the chart notes and spoke with the patient and his family at the bedside. Patient currently uninsured, working on getting through his [employer] employer. The patient resides with his significant other in a second floor apartment with a flight
of steps to enter. The patient reports no DME/VN/SNF in the past. Patient confirmed his pharmacy of choice is [facility]. CM continues to be available to patient/family and is monitoring medical plan for needs at discharge.
Plan: Discharge to home when medically stable.
--- NOTE | 2025-03-22 13:28 | W.PN.UPDATE ---
Update Note
Progress Note Update
Paresthesias bilateral lower extremity weakness
-Differential diagnosis which could be related to relapsing remitting multiple sclerosis versus transverse myelopathy versus tabes dorsalis versus subacute combined degeneration
- Check MRI brain, C-spine, T-spine, L-spine. Favor checking C and T-spine MRI first if unable to obtain all 4 MRI imaging studies due to time constraints.
- IR consult
- CSF fluid analysis but LP ordered by neurology
- Syphilis B12 HIV ordered. Consent obtained to check HIV status
- Neurology consulted
- If neurology recommends initiating pulsed dose steroids will initiate otherwise hold off until further testing returns
- PT/OT
- Lyme pending
--- NOTE | 2025-03-22 17:03 | W.PN.HOSP.TC ---
Addendum entered and electronically signed by Bi Lema MD 03/23/25 13:44:
Paresthesias bilateral lower extremity weakness
-Differential diagnosis which could be related to relapsing remitting multiple sclerosis versus transverse myelopathy versus tabes dorsalis versus subacute combined degeneration
- Check MRI brain, C-spine, T-spine, L-spine. Favor checking C and T-spine MRI first if unable to obtain all 4 MRI imaging studies due to time constraints.
- IR consult
- CSF fluid analysis but LP ordered by neurology
- Syphilis B12 HIV ordered. Consent obtained to check HIV status
- Neurology consulted
- If neurology recommends initiating pulsed dose steroids will initiate otherwise hold off until further testing returns
- PT/OT
- Lyme pending
Original Note:
Today's Communication/Plan
-
-MRI brain, C-spine, T-spine, L-spine. contacting the MRI for priority of checking C and T-spine MRI first if unable to obtain all 4 MRI imagines
-IR consult
-CSF fluid analysis, LP ordered by neurology
-Syphilis, B12 and HIV ordered
-Medical records request placed today from [facility] where the patient was seening the neurologist Dr Emerson in 2018.
Assessment / Plan
Assessment / Plan
#LE numbness and weakness
-hxt of MS
-DDX relapsing remitting multiple sclerosis versus transverse myelopathy versus tabes dorsalis versus subacute combined degeneration
-MRI brain, C-spine, T-spine, L-spine. priority checking C and T-spine MRI first if unable to obtain all 4 MRI imagines
- IR consult
-monitor CBC and CMP , wbc today 13.8
-neurology consulted
-hold off initiating the steroids until the further tests retune or per neurologist recommendation
-CSF fluid analysis, LP ordered by neurology
-Syphilis, B12 and HIV ordered
-Lyme screening pending
-PT/OT
-Medical records request placed today from [facility] in [place] where the patient was seening the neurologist Dr Emerson in 2018.
Anticipated Discharge: > 48 hours
Subjective/Interval History
-
Date of Service: March 22, 2025
patient has been c/o bilateral lower extremities paraesthesia, weakness with feeling of tightness in his abdomen and tinglings in his fingers with loss of sensation in his lower extremities. No urinary or bowel movement changes. no recent trauma,
infection, travel,.
Objective Data
-
Labs:
Laboratory Results
03/22/25
10:16
PT 13.9
INR 1.04
Vital Signs:
Vital Signs
Temp Pulse Resp BP Pulse Ox
98.4 F 67 18 120/68 98
03/22/25 16:00 03/22/25 16:00 03/22/25 16:00 03/22/25 16:00 03/22/25 16:00
I&O
03/21/25 03/22/25 03/23/25
06:59 06:59 06:59
Intake Total 480 / 480
Balance 480 / 480
Review of Systems
-
History Source: Patient
Respiratory: Reports No Symptoms
Cardiac: Reports No Symptoms
Abdomen/GI: Reports Other (feeling tight sensation in his stomach)
Genitourinary: Reports No Symptoms
Musculoskeletal: Reports Muscle Weakness
Skin: Reports Other (hair loss)
Neuro: Reports No Symptoms
Endocrine: Reports No Symptoms
Physical Exam
-
General: Well Developed and Well Nourished
HEENT: Normocephalic and Atraumatic
Respiratory: Clear to Auscultation
Cardiac: Regular Rhythm and S1/S2
GI: Soft and Nontender
Genito-urinary: No Costovertebral Tender
Musculoskeletal: No Clubbing, No Cyanosis and No Edema
Skin: Warm and Dry
Neuro: Awake, Alert, Oriented, No Motor Deficits and Other (decreases in sensation in lower extremities and left cheek)
Psych: Calm
--- NOTE | 2025-03-22 17:59 | PTCARENOTE ---
Patient returned from IR s/p LP; bandaid c/d/i; patient reports no complaints; dinner ordered; VSS; patient is on bedrest and flat position for 2 hours (until 1949); patient educated on restrictions.
[2025-03-22 18:22] LABS: CSF Color Colorless; CSF Tube # Clarity Clear; Red Cell Count/CSF 1 mm^3; White Blood Cell Count/CSF 3 mm^3 (0-5)
[2025-03-22 18:23] LABS: CSF Color Colorless; Red Cell Count/CSF 42 mm^3; White Cell Count/CSF 5 mm^3 (0-5)
[2025-03-22] MEDS: LOVENOX 40 MG SC (18:34)
[2025-03-22 21:55] LABS: Spinal Fluid Lymphocytes 96 %; Spinal Fluid Macrophages 4 %
[2025-03-22] MEDS: DILAUDID 0.25 MG IV (22:45)
--- NOTE | 2025-03-22 23:59 | W.PN.UPDATE ---
Update Note
Progress Note Update
Patient is complaining of sob. Patient with PMH of asthma. SPo2 99% on RA
-Diminished lung sound noted during the exam.
-Duo neb, chest x-ray, covid and flu ordered.
-Chest x-ray result is pending
[2025-03-23] MEDS: DUONEB 3 ML INH (01:21)
[2025-03-23 05:04] LABS: COVID-19 Antigen Negative (Negative)
[2025-03-23 07:11] LABS: ALT (SGPT) 29 U/L (0-35); AST (SGOT) 14 U/L (14-36); Albumin 4.0 g/dl (3.5-5.0); Alkaline Phosphatase 77 U/L (38-126); Blood Urea Nitrogen 15 mg/dl (7-17); Calcium 9.1 mg/dl (8.4-10.2); Carbon Dioxide 23 mmol/L (22-30); Chloride 105 mmol/L (98-107); Estimated Creatinine Clearance > 125 ml/min; Glucose 91 mg/dl (70-99); Potassium 4.1 mmol/L (3.5-5.1); Total Protein 6.7 g/dl (6.3-8.2); eGFR > 60.00
[2025-03-23 07:17] LABS: Sodium 135 mmol/L (135-145)
[2025-03-23 07:29] LABS: Hematocrit 38.3 % (37.0-47.0); Hemoglobin 13.6 g/dL (12.0-16.0); Mean Corp Hgb Conc. 35.5 g/dL (33.0-37.0); Mean Corpuscular Volume 83.8 fL (81.0-99.0); Nucleated Red Blood Cells % 0 %; Platelet Count 304 10^3/uL (130-400); Red Cell Dist. Width 12.5 % (11.5-14.5)
[2025-03-23 07:45] VITALS: BP 119/76
--- NOTE | 2025-03-23 08:38 | W.PN.HOSP.TC ---
Addendum entered and electronically signed by Bi Lema MD 03/23/25 13:45:
Paresthesias bilateral lower extremity weakness
-Differential diagnosis which could be related to relapsing remitting multiple sclerosis versus transverse myelopathy versus tabes dorsalis versus subacute combined degeneration, c/n exclude gbs
- Check MRI brain, C-spine, T-spine, L-spine. Favor checking C and T-spine MRI first if unable to obtain all 4 MRI imaging studies due to time constraints.
- IR consult
- CSF fluid analysis but LP ordered by neurology
- Syphilis B12 HIV ordered. Consent obtained to check HIV status
- Neurology consulted
- If neurology recommends initiating pulsed dose steroids will initiate otherwise hold off until further testing returns
- PT/OT
- Lyme pending
Original Note:
Today's Communication/Plan
-
-neurology consulted: currently doing stroke alert and no steroids meds needed at this time unless the MRI of the spine showed cord enhancement and if no cord enhancement can be d/c and f/u with neurologist in 2 week
-territory manager general sales contacted to help patient with state insurance and [facility] medicaid specialist following
- f/u CSF cultures and pending labs
Assessment / Plan
Assessment / Plan
#LE numbness and weakness
-hxt of MS
-DDX relapsing remitting multiple sclerosis versus transverse myelopathy, tabes dorsalis versus subacute combined degeneration and galilean [place] syndrome given the pt symptoms of ascending paraesthesia. pt denied recent travel, diarrhea or recent
vaccination.
-chest x-ray on 03/23/2025 due to chest tightness and was normal, COVID-19 test negative
-MRI brain, C-spine, T-spine, L-spine. priority checking C and T-spine MRI first if unable to obtain all 4 MRI imagines ordered and has not been done yet
- IR consult
-monitor CBC and CMP , wbc today 11.4
-neurology consulted: currently doing stroke alert and no steroids meds needed at this time unless the MRI of the spine showed cord enhancement and if no cord enhancement can be d/c and f/u with neurologist in 2 weeks
-hold off initiating the steroids until the further tests retune or per neurologist recommendation
-CSF fluid analysis, LP done and showed normal CSF analysis
-CSF garm stain preliminary results showed no growth and no WBC, CSF meningitis screening panel negative
-Syphilis, B12 and HIV results pending
-Lyme screening pending
-PT/OT
-Medical records request placed to obtain the patient records from [facility] in [place] where the patient was seening the neurologist Dr Emerson in 2018.
Anticipated Discharge: > 48 hours
Subjective/Interval History
-
Date of Service: March 23, 2025
patient has mild back pin at the site of lumbar puncture and chest tightness yesterday night around 10 pm, he has a hx of asthma and received albuterol yesterday and the symptom resolved. No chest pain, dizziness or SOB
Objective Data
-
Labs:
Laboratory Results
03/23/25
05:47
WBC 11.4 H
Hgb 13.6
Hct 38.3
Plt Count 304
Sodium 135
Potassium 4.1
Chloride 105
Carbon Dioxide 23
BUN 15
Creatinine 0.6
Glucose 91
Calcium 9.1
Total Bilirubin 0.5
AST 14
ALT 29
Alkaline Phosphatase 77
Vital Signs:
Vital Signs
Temp Pulse Resp BP Pulse Ox
98.7 F 66 18 119/76 100
03/23/25 07:45 03/23/25 07:45 03/23/25 07:45 03/23/25 07:45 03/23/25 07:45
I&O
03/22/25 03/23/25 03/24/25
06:59 06:59 06:59
Intake Total 480 / 480 960 / 960
Balance 480 / 480 960 / 960
Review of Systems
-
History Source: Patient
Constitutional: Reports No Symptoms
Respiratory: Reports No Symptoms
Cardiac: Reports Other (Chest tightness )
Abdomen/GI: Reports Other (feeling tight sensation in his stomach)
Genitourinary: Reports No Symptoms
Musculoskeletal: Reports Muscle Weakness and Other (back pain at the site of LP)
Skin: Reports Other (hair loss)
Neuro: Reports No Symptoms
Endocrine: Reports No Symptoms
Physical Exam
-
General: Well Developed and Well Nourished
HEENT: Normocephalic and Atraumatic
Respiratory: Clear to Auscultation
Cardiac: Regular Rhythm and S1/S2
GI: Soft and Nontender
Genito-urinary: No Costovertebral Tender
Musculoskeletal: No Clubbing, No Cyanosis and No Edema
Skin: Warm and Dry
Neuro: Awake, Alert, Oriented, No Motor Deficits and Other (decreases in sensation in lower extremities and left cheek)
Psych: Calm
--- NOTE | 2025-03-23 12:11 | W.PN.NEURO.1 ---
Today's Communication / Plan
-
.
Subjective/Objective
Subjective Data
Date of Service: March 23, 2025
Neurology follow-up note
Mr. Velasquez reports no new symptoms since yesterday. He continues to have sensory ataxia requiring to use a walker. No reports of headache or back pain.
CSF done yesterday. Was unremarkable.
B12�780.
Spinal MRIs�pending
PMH: Multiple sclerosis, vitamin D, iron deficiency, BMI 31
PSH: Appendectomy
SH: , Works at [employer] making [employer]; independent in ADLs. Uses cane/walker as needed, non-smoker, denies excessive alcohol use
FH: Diabetes
All: NKDA
ROS: General: Positive for dizziness.
HEENT: Negative for vision changes.
Neurological: Positive for numbness and tingling in legs and hands, imbalance, and sharp discomfort when stepping.
Musculoskeletal: Positive for difficulty walking, requiring assistance with a walker or cane.
Genitourinary: Negative for urinary difficulties.
General: Well developed. In no acute distress.
Cardio: Regular rate and rhythm without murmur. Extremities are without cyanosis or edema.
Neuro:
Mental Status: Alert, oriented to person, place, and date. Normal attention and recall. Good fund of knowledge. Follows complex requests across the midline. Comprehension, naming, and repetition intact. Immediate and delayed recall 3/3.
Cranial Nerves: Pupils are equally round and reactive to light. EOMs full. Visual oleary full to confrontation. No ptosis. No nystagmus. V1-V3 intact to light touch and pinprick bilaterally, symmetric. Face symmetric. Normal hearing AU. The
palate elevated well. SCMs and traps 5/5. Tongue midline. No dysarthria.
Motor: Normal bulk and tone. No pronator or arm drift. Strength 5/5 throughout except for left triceps and biceps 4 out of 5, left hip flexion�4 out of 5, right hip flexion�5- out of 5 dorsiflexion�5 out of 5. No clonus.
Reflexes: 2+ throughout the upper extremities and 3+knees. Negative clonus bilaterally
Sensory: Negative vibration at the toes ankles and knees and preserved at the fingers. Absent proprioception at the toes and ankles.
Coordination: Dysmetria on the left
Gait: deferred
Assessment and Plan:
I. Sensory ataxia. No motor weakness on neuroexam.
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
III. Vitamin D deficiency
- Fall precaution
- Will consider IV steroids if enhancing lesion on spinal MRIs
- PT
- DVT prophylaxis
- The case was discussed with patient's spouse, present at bedside
I personally reviewed all radiology and labs along with past medical records pertinent to current medical problems. Total time spent in patient care is 35 minutes.
Thank you for allowing us to participate in the care of this patient. We will continue to follow. Please do not hesitate to contact us with any questions or concerns.
Objective Data
Vital Signs
Temp Pulse Resp BP Pulse Ox
37.1 C 66 18 119/76 100
03/23/25 07:45 03/23/25 07:45 03/23/25 07:45 03/23/25 07:45 03/23/25 07:45
Lab Results
03/23/25 05:47
03/23/25 05:47
PT 13.9 Sec (11.4-14.6) 03/22/25 10:16
INR 1.04 03/22/25 10:16
Sodium 135 mmol/L (135-145) 03/23/25 05:47
Potassium 4.1 mmol/L (3.5-5.1) 03/23/25 05:47
BUN 15 mg/dl (7-17) 03/23/25 05:47
Glucose 91 mg/dl (70-99) 03/23/25 05:47
Calcium 9.1 mg/dl (8.4-10.2) 03/23/25 05:47
Vitamin B12 780 pg/ml (005-910) 03/22/25 09:35
Ur Buprenorphine Negative (Negative) 03/23/25 02:10
Patient Allergies
No Known Allergies Allergy (Verified 03/21/25 16:15)
Vital Signs and Labs
-
Vital Signs and Labs:
Vital Signs
Temp Pulse Resp BP Pulse Ox
37.1 C 66 18 119/76 100
03/23/25 07:45 03/23/25 07:45 03/23/25 07:45 03/23/25 07:45 03/23/25 07:45
Lab Results
03/23/25 05:47
03/23/25 05:47
PT 13.9 Sec (11.4-14.6) 03/22/25 10:16
INR 1.04 03/22/25 10:16
Sodium 135 mmol/L (135-145) 03/23/25 05:47
Potassium 4.1 mmol/L (3.5-5.1) 03/23/25 05:47
BUN 15 mg/dl (7-17) 03/23/25 05:47
Glucose 91 mg/dl (70-99) 03/23/25 05:47
Calcium 9.1 mg/dl (8.4-10.2) 03/23/25 05:47
Vitamin B12 780 pg/ml (103-188) 03/22/25 09:35
Ur Buprenorphine Negative (Negative) 03/23/25 02:10
Medications
-
Medications:
Generic Name Dose Route Start Last Admin
Trade Name Freq PRN Reason Stop Dose Admin
Acetaminophen 650 mg 03/21/25 21:00
Acetaminophen 325 Mg Tablet PO 04/18/25 20:59
Q4HPRN PRN
mild pain/GARDINER/temp> 100.4F
Albuterol/Ipratropium 3 ml 03/22/25 23:57 03/23/25 01:21
Ipratropium 0.5/Albuterol 3 Mg (3 Ml Ampul) INH 3 ml
R Q4HPRN PRN Administration
Sob/ wheezing
Protocol
Bisacodyl 10 mg 03/21/25 21:00
Bisacodyl 10 Mg Rectal Suppository RECTAL 04/18/25 20:59
[id number] PRN
constipation
Enoxaparin Sodium 40 mg 03/22/25 18:00 03/22/25 18:34
Enoxaparin Sodium 40 Mg/0.4 Ml Syringe SC 04/19/25 17:59 40 mg
QPM TABITHA Administration
Polyethylene Glycol 17 grams 03/21/25 21:00
Polyethylene Glycol Powder 17 Grams Packet PO 04/18/25 20:59
DAILYPRN PRN
constipation
Senna/Docusate Sodium 1 tablet 03/21/25 21:00
Docusate W/Senna (Sultana-Colace) Tablet PO 04/18/25 20:59
BIDPRN PRN
constipation
Sodium Chloride 0 flush 03/21/25 22:00
Sodium Chloride 0.9% (Flush) Syringe IV 04/18/25 21:59
PER PROTOCOL TABITHA
Home Medications
-
Home Medications
cholecalciferol (vitamin D3) 50 mcg (2,000 unit) tablet 50 mcg PO DAILY #100 tabs 01/14/25
prednisone 10 mg tablet See Rx Instructions .Route .COMPLEX #45 tabs 03/13/25
acetaminophen 500 mg tablet (Tylenol Extra Strength) 1,000 mg PO Q6HPRN PRN mild pain 03/21/25
ferrous sulfate 325 mg (65 mg iron) tablet (Iron (ferrous sulfate)) 325 mg PO DAILY Supplement 03/21/25
testosterone cypionate 200 mg/mL intramuscular oil 100 mg IM MO@1900 HRT 03/21/25
--- NOTE | 2025-03-23 12:28 | CM ---
CM following re: discharge planning.
Reviewed pt's chart, met with pt and pt's spouse at bedside.
Per , MRI today, continue supportive care.
Pt reports he lives with spouse and 12 year old sister and he has legal guardianship on her sister. Pt reports he was born in [place], his spouse 2.5 years ago, has no children. 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
insurance. [facility] following.
Pt expressed to me his concerns and fears regarding his spouse who is undocumented emigrant from [place]. Pt stated he did not put his spouse name on the apartment lease with fears that his spouse can be detained by ICE. Emotional support offered and
provided. Pt stated he does not have enough money to file a Green Card application to [employer] and pt stated he will do it as soon as possible. 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
expenses.
Insurance resources provided, pt has printed out information to apply for [employer] insurance.
D/C plan: home with follow up with [employer] [facility] to obtain insurance. Spouse to transport
[2025-03-23 15:39] VITALS: BP 123/73
[2025-03-23] MEDS: LOVENOX 40 MG SC (17:13)
[2025-03-23 23:07] VITALS: BP 107/68
[2025-03-24 01:46] LABS: ANA, IgG Reflex to HEp-2 None Detected (None Detected)
[2025-03-24 07:07] LABS: Hematocrit 40.2 % (37.0-47.0); Hemoglobin 14.6 g/dL (12.0-16.0); Mean Corp Hgb Conc. 36.3 g/dL (33.0-37.0); Mean Corpuscular Volume 83.6 fL (81.0-99.0); Nucleated Red Blood Cells % 0 %; Platelet Count 274 10^3/uL (130-400); Red Cell Dist. Width 12.2 % (11.5-14.5)
[2025-03-24 07:23] LABS: ALT (SGPT) 31 U/L (0-35); AST (SGOT) 16 U/L (14-36); Albumin 4.3 g/dl (3.5-5.0); Alkaline Phosphatase 67 U/L (38-126); Blood Urea Nitrogen 11 mg/dl (7-17); Calcium 9.8 mg/dl (8.4-10.2); Carbon Dioxide 24 mmol/L (22-30); Chloride 107 mmol/L (98-107); Estimated Creatinine Clearance > 125 ml/min; Glucose 101 mg/dl (70-99); Potassium 4.5 mmol/L (3.5-5.1); Sodium 136 mmol/L (135-145); Total Protein 7.1 g/dl (6.3-8.2); eGFR > 60.00
[2025-03-24 07:30] VITALS: BP 122/73
--- NOTE | 2025-03-24 10:13 | W.PN.NEURO.1 ---
Today's Communication / Plan
-
Not clear patient requires additional neuroimaging at this time
would initiate methylprednisolone 1 g IV for 3-day timeframe
Continue vitamin D
Continue iron supplementation
Based on the patient's symptomatology, initiate pregabalin 50 mg at bedtime
Neuro Assessment/Plan
Assessment
I. Ascending paresthesias. Due to acute C3-4 large size demyelinating lesion with enhancement
II. Likely relapsing remitting multiple sclerosis
III. Vitamin D deficiency
Plan
Not clear patient requires additional neuroimaging at this time
would initiate methylprednisolone 1 g IV for 3-day timeframe
Continue vitamin D
Continue iron supplementation
Based on the patient's symptomatology, initiate pregabalin 50 mg at bedtime
Will follow peripherally
Subjective/Objective
Subjective Data
Date of Service: March 24, 2025
Patient continues to have sensory changes up to T6
Objective Data
Vital Signs
Temp Pulse Resp BP Pulse Ox
36.9 C 60 16 122/73 98
03/24/25 07:30 03/24/25 07:30 03/24/25 07:30 03/24/25 07:30 03/24/25 07:30
Lab Results
03/24/25 06:39
03/24/25 06:39
PT 13.9 Sec (11.4-14.6) 03/22/25 10:16
INR 1.04 03/22/25 10:16
Sodium 136 mmol/L (135-145) 03/24/25 06:39
Potassium 4.5 mmol/L (3.5-5.1) 03/24/25 06:39
BUN 11 mg/dl (7-17) 03/24/25 06:39
Glucose 101 mg/dl (70-99) H 03/24/25 06:39
Calcium 9.8 mg/dl (8.4-10.2) 03/24/25 06:39
Vitamin B12 780 pg/ml (831-143) 03/22/25 09:35
Ur Buprenorphine Negative (Negative) 03/23/25 02:10
Patient Allergies
No Known Allergies Allergy (Verified 03/21/25 16:15)
Review of Systems
-
History Source: Patient
All other systems: Reviewed and negative
EENT: Negative Swallowing Difficulty
Neuro: Ataxia
Physical Exam
-
General: No Apparent Distress and Appears Stated Age
Eyes: Round OU, [place] Conjunctivae and No Ptosis
HEENT: Anicteric and Moist Mucous Membranes
Neck: Full Range of Motion
Respiratory: No Dyspnea
Cardiac: No JVD
GI: Non-distended
Skin: Unremarkable
Extremities: No Clubbing, No Cyanosis and No Edema
Psych: Intact Judgement/Insight
Extended Neurological Exam
Mood & Affect: Mood Unremarkable and Affect Unremarkable
Attention Span & Concentration: Awake, Alert and Interactive
Memory: Unremarkable
Tremor: Hand Tremor Absent and Head Tremor Absent
Speech: Quality Unremarkable and Quantity Unremarkable
Cranial Nerve II: Left Eye: Pupillary Size Unremarkable and Visual Casiano Grossly Intact
Cranial Nerve II: Right Eye: Pupillary Size Unremarkable and Visual Casiano Grossly Intact
Cranial Nerves III, IV, : Extraocular Movement: Grossly Intact
Cranial Nerve VII: Facial Symmetry: Normal Facial Symmetry
Cranial Nerve VIII: Hearing: Unremarkable Hearing to Normal Conversational Volume
Cranial Nerve XI: Shoulder Shrug: Unremarkable
Muscle Strength, Overall: Spontaneously Moves
Muscle Bulk & Tone: Bulk Unremarkable and Tone Unremarkable
Touch Sensation: Unremarkable
Coordination: [id number] Testing Unremarkable
Data Reviewed
-
MRI Cervical Spine: Report Reviewed
MRI Thoracic Spine: Report Reviewed
Labs: Report Reviewed
Reviewed with: Physician, Nurse Practioner and Patient
Old Records: Summarized
Past History
Past History
ED Past Medical History: Asthma, Other (MS since age 20 yo with visual changes that he wore glasses for to help correct), Other (Complex migraines) and Other (Transgender male)
ED Past Surgical History: Appendectomy
Social History
Tobacco: Former smoker
Alcohol: None
Drug: Marijuana (occasional for pain)
Personal:
Living: with family
Employment: Employed
Family History
Family History: Other (Noncontributory)
Medications
-
Medications:
Generic Name Dose Route Start Last Admin
Trade Name Freq PRN Reason Stop Dose Admin
Acetaminophen 650 mg 03/21/25 21:00
Acetaminophen 325 Mg Tablet PO 04/18/25 20:59
Q4HPRN PRN
mild pain/GARDINER/temp> 100.4F
Albuterol/Ipratropium 3 ml 03/22/25 23:57 03/23/25 01:21
Ipratropium 0.5/Albuterol 3 Mg (3 Ml Ampul) INH 3 ml
R Q4HPRN PRN Administration
Sob/ wheezing
Protocol
Bisacodyl 10 mg 03/21/25 21:00
Bisacodyl 10 Mg Rectal Suppository RECTAL 04/18/25 20:59
[id number] PRN
constipation
Enoxaparin Sodium 40 mg 03/22/25 18:00 03/23/25 17:13
Enoxaparin Sodium 40 Mg/0.4 Ml Syringe SC 04/19/25 17:59 40 mg
QPM TABITHA Administration
Methylprednisolone Sodium 258 mls @ 258 mls/hr 03/24/25 10:00
Succinate 1,000 mg/ Sodium IV 03/28/25 10:59
Chloride Q24H TABITHA
Polyethylene Glycol 17 grams 03/21/25 21:00
Polyethylene Glycol Powder 17 Grams Packet PO 04/18/25 20:59
DAILYPRN PRN
constipation
Senna/Docusate Sodium 1 tablet 03/21/25 21:00
Docusate W/Senna (Sultana-Colace) Tablet PO 04/18/25 20:59
BIDPRN PRN
constipation
Sodium Chloride 0 flush 03/21/25 22:00
Sodium Chloride 0.9% (Flush) Syringe IV 04/18/25 21:59
PER PROTOCOL TABITHA
[2025-03-24] MEDS: SOLU-MEDROL 258 MG IV (10:52)
--- NOTE | 2025-03-24 11:52 | W.PN.UPDATE ---
Update Note
Progress Note Update
Relapsing remitting multiple sclerosis
Follow-up on MRI results
[facility]
--- NOTE | 2025-03-24 11:52 | W.PN.HOSP.TC ---
Today's Communication/Plan
-
-start methylprednisolone 1 g IV for 3-day timeframe
-initiate pregabalin 50 mg at bedtime by neurologist
Assessment / Plan
Assessment / Plan
29y M with PMH significant for MS - not currently on active treatment - who presents to ED complaining of weakness and paresthesias in the bilateral lower extremities. Patient notes that his symptoms started about one week ago in the LLE and
then RLL up to his upper abdomen with bilateral hands and fingers tinglings and numbness except the thumb and index.
#LE numbness and weakness
-hxt of MS
-DDX relapsing remitting multiple sclerosis versus transverse myelopathy, tabes dorsalis versus subacute combined degeneration and galilean [place] syndrome given the pt symptoms of ascending paraesthesia. pt denied recent travel, diarrhea or recent
vaccination and per Cervical spine MRI this is most likely MS relapsing
-chest x-ray on 03/23/2025 due to chest tightness and was normal, COVID-19 test negative
-MRI brain, C-spine, T-spine, L-spine. priority checking C and T-spine MRI first if unable to obtain all 4 MRI imagines ordered and has not been done yet
- IR consult
-monitor CBC and CMP
-Cervical spine MRI: increased size of enhancement within the lesion in the posterior aspect of the cervical cord at the C3-C4 level which likely represents active demyelination in the setting of known MS.
-Thoracic spine MRI: no evidence of demyelinating disease
-neurology consulted:
- start methylprednisolone 1 g IV for 3-day timeframe
- initiate pregabalin 50 mg at bedtime
-no further imaging needed
-CSF fluid analysis, LP done and showed normal CSF analysis
-CSF garm stain preliminary results showed no growth and no WBC, CSF meningitis screening panel negative
-Syphilis, B12 and HIV results pending
-Lyme screening pending
-PT/OT
-Medical records request placed to obtain the patient records from [facility] in [place] where the patient was seening the neurologist Dr Emerson in 2018.
Anticipated Discharge: > 48 hours
Subjective/Interval History
-
Date of Service: March 24, 2025
patient has increased in his tinglings and numbness in his hands and legs today. no other new symptoms
Objective Data
-
Labs:
Laboratory Results
03/24/25
06:39
WBC 10.1
Hgb 14.6
Hct 40.2
Plt Count 274
Sodium 136
Potassium 4.5
Chloride 107
Carbon Dioxide 24
BUN 11
Creatinine 0.5 L
Glucose 101 H
Calcium 9.8
Total Bilirubin 0.8
AST 16
ALT 31
Alkaline Phosphatase 67
Vital Signs:
Vital Signs
Temp Pulse Resp BP Pulse Ox
98.4 F 60 16 122/73 98
03/24/25 07:30 03/24/25 07:30 03/24/25 07:30 03/24/25 07:30 03/24/25 08:24
I&O
03/23/25 03/24/25 03/25/25
06:59 06:59 06:59
Intake Total 960 / 960 1400 / 1400 258 / 258
Balance 960 / 960 1400 / 1400 258 / 258
Review of Systems
-
History Source: Patient
Constitutional: Reports No Symptoms
Respiratory: Reports No Symptoms
Cardiac: Reports No Symptoms
Abdomen/GI: Reports Other (feeling tight sensation in his stomach)
Genitourinary: Reports No Symptoms
Musculoskeletal: Reports Muscle Weakness and Other (back pain at the site of LP)
Skin: Reports Other (hair loss, )
Neuro: Reports No Symptoms
Endocrine: Reports No Symptoms
Physical Exam
-
General: Well Developed and Well Nourished
HEENT: Normocephalic and Atraumatic
Respiratory: Clear to Auscultation
Cardiac: Regular Rhythm and S1/S2
GI: Soft and Nontender
Genito-urinary: No Costovertebral Tender
Musculoskeletal: No Clubbing, No Cyanosis and No Edema
Skin: Warm and Dry
Neuro: Awake, Alert, Oriented, No Motor Deficits and Other (decreases in sensation in lower extremities and left cheek)
Psych: Calm
--- NOTE | 2025-03-24 13:06 | CM ---
CM following re: discharge planning.
Reviewed pt's chart, met with pt and pt's spouse at bedside.
Pt and OT evaluations noted - pt has no skilled needs. Pt is aware and she stated she has a walker at home.
[facility] following.
D/C plan: home with follow up with [facility] [place] [facility] to enroll in insurance plan. Spouse to transport.
[2025-03-24 15:10] LABS: Lyme Antibody Screen, EIA Negative (Negative)
[2025-03-24 15:40] VITALS: BP 126/75
[2025-03-24 15:58] LABS: Ferritin 146.0 ng/ml (6.24-137)
[2025-03-24] MEDS: LOVENOX 40 MG SC (17:36)
[2025-03-24] MEDS: LYRICA 50 MG PO (21:59)
[2025-03-24 23:11] LABS: Vitamin B1, Whole Blood 161 nmol/L (70-180)
[2025-03-24 23:14] VITALS: BP 134/78
[2025-03-25 06:16] LABS: Hematocrit 39.9 % (37.0-47.0); Hemoglobin 14.0 g/dL (12.0-16.0); Mean Corp Hgb Conc. 35.1 g/dL (33.0-37.0); Mean Corpuscular Volume 83.6 fL (81.0-99.0); Nucleated Red Blood Cells % 0 %; Platelet Count 324 10^3/uL (130-400); Red Cell Dist. Width 12.2 % (11.5-14.5)
[2025-03-25 06:40] LABS: Blood Urea Nitrogen 12 mg/dl (7-17); Estimated Creatinine Clearance > 125 ml/min; Glucose 198 mg/dl (70-99)
[2025-03-25 06:41] LABS: ALT (SGPT) 30 U/L (0-35); AST (SGOT) 16 U/L (14-36); Albumin 4.7 g/dl (3.5-5.0); Alkaline Phosphatase 97 U/L (38-126); Calcium 9.8 mg/dl (8.4-10.2); Carbon Dioxide 18 mmol/L (22-30); Chloride 109 mmol/L (98-107); Potassium 4.4 mmol/L (3.5-5.1); Sodium 138 mmol/L (135-145); Total Protein 7.6 g/dl (6.3-8.2); eGFR > 60.00
[2025-03-25 07:11] VITALS: BP 127/70
--- NOTE | 2025-03-25 09:53 | W.PN.NEURO.1 ---
Today's Communication / Plan
-
initiated methylprednisolone 1 g IV for 3-day timeframe, no after taper
Patient interested in initiating cladribine as outpatient for control over MS
Based on the patient's symptomatology, initiated pregabalin 50 mg at bedtime
Neuro Assessment/Plan
Assessment
I. Ascending paresthesias. Due to acute C3-4 large size demyelinating lesion with enhancement
II. Likely relapsing remitting multiple sclerosis
III. Vitamin D deficiency
Plan
initiated methylprednisolone 1 g IV for 3-day timeframe, no after taper
Patient interested in initiating cladribine as outpatient for control over MS
Continue vitamin D
Continue iron supplementation
Based on the patient's symptomatology, initiated pregabalin 50 mg at bedtime
Will follow peripherally
Subjective/Objective
Subjective Data
Date of Service: March 25, 2025
Reduced sensation intensity.
Objective Data
Vital Signs
Temp Pulse Resp BP Pulse Ox
37.0 C 93 16 127/70 96
03/25/25 07:11 03/25/25 07:11 03/25/25 07:11 03/25/25 07:11 03/25/25 07:11
Lab Results
03/25/25 05:47
03/25/25 05:47
PT 13.9 Sec (11.4-14.6) 03/22/25 10:16
INR 1.04 03/22/25 10:16
Sodium 138 mmol/L (135-145) 03/25/25 05:47
Potassium 4.4 mmol/L (3.5-5.1) 03/25/25 05:47
BUN 12 mg/dl (7-17) 03/25/25 05:47
Glucose 198 mg/dl (70-99) H 03/25/25 05:47
Calcium 9.8 mg/dl (8.4-10.2) 03/25/25 05:47
Whole Bld Vitamin B1 161 nmol/L (70-180) 03/22/25 09:35
Vitamin B12 780 pg/ml (239-931) 03/22/25 09:35
Ur Buprenorphine Negative (Negative) 03/23/25 02:10
Patient Allergies
No Known Allergies Allergy (Verified 03/21/25 16:15)
Review of Systems
-
History Source: Patient
All other systems: Reviewed and negative
Physical Exam
-
General: No Apparent Distress and Appears Stated Age
Eyes: Round OU, [place] Conjunctivae and No Ptosis
HEENT: Moist Mucous Membranes
Neck: Full Range of Motion
Respiratory: No Dyspnea
Cardiac: No JVD
GI: Non-distended
Skin: Unremarkable
Extremities: No Clubbing, No Cyanosis and No Edema
Psych: Intact Judgement/Insight
Extended Neurological Exam
Mood & Affect: Mood Unremarkable and Affect Unremarkable
Attention Span & Concentration: Awake, Alert and Interactive
Memory: Unremarkable
Tremor: Hand Tremor Absent and Head Tremor Absent
Speech: Quality Unremarkable and Quantity Unremarkable
Cranial Nerve II: Left Eye: Pupillary Size Unremarkable and Visual Casiano Grossly Intact
Cranial Nerve II: Right Eye: Pupillary Size Unremarkable and Visual Casiano Grossly Intact
Cranial Nerves III, IV, : Extraocular Movement: Grossly Intact
Cranial Nerve VII: Facial Symmetry: Normal Facial Symmetry
Cranial Nerve VIII: Hearing: Unremarkable Hearing to Normal Conversational Volume
Muscle Strength, Overall: Spontaneously Moves (All extremities)
Muscle Bulk & Tone: Bulk Unremarkable and Tone Unremarkable
Touch Sensation: Unremarkable
Coordination: [id number]-[id number]-[id number] Testing Unremarkable
Data Reviewed
-
MRI Thoracic Spine: Report Reviewed
Labs: Report Reviewed
Reviewed with: Nurse Practioner, Patient and Family
Old Records: Summarized
Past History
Past History
ED Past Medical History: Asthma, Other (MS since age 20 yo), Other (Complex migraines) and Other (Transgender male)
ED Past Surgical History: Appendectomy
Social History
Tobacco: Former smoker
Alcohol: None
Drug: Marijuana (occasional for pain)
Personal:
Living: with family
Employment: Employed
Family History
Family History: Other (Reviewed and noncontributory)
Medications
-
Medications:
Generic Name Dose Route Start Last Admin
Trade Name Freq PRN Reason Stop Dose Admin
Acetaminophen 650 mg 03/21/25 21:00
Acetaminophen 325 Mg Tablet PO 04/18/25 20:59
Q4HPRN PRN
mild pain/GARDINER/temp> 100.4F
Albuterol/Ipratropium 3 ml 03/22/25 23:57 03/23/25 01:21
Ipratropium 0.5/Albuterol 3 Mg (3 Ml Ampul) INH 3 ml
R Q4HPRN PRN Administration
Sob/ wheezing
Protocol
Bisacodyl 10 mg 03/21/25 21:00
Bisacodyl 10 Mg Rectal Suppository RECTAL 04/18/25 20:59
[id number] PRN
constipation
Dextrose 12.5 grams 03/25/25 09:00
Dextrose 50% (0.5 Grams/Ml) 50 Ml Syringe IV 04/22/25 08:59
[id number] PRN
hypoglycemia
Protocol
Enoxaparin Sodium 40 mg 03/22/25 18:00 03/24/25 17:36
Enoxaparin Sodium 40 Mg/0.4 Ml Syringe SC 04/19/25 17:59 40 mg
QPM TABITHA Administration
Glucagon 1 mg 03/25/25 09:00
Glucagon 1 Mg Vial IM 04/22/25 08:59
PRN PRN
hypoglycemia - no IV access
Protocol
Methylprednisolone Sodium 258 mls @ 258 mls/hr 03/24/25 10:00 03/24/25 10:52
Succinate 1,000 mg/ Sodium IV 03/28/25 10:59 258 mls
Chloride Q24H TABITHA Administration
Insulin Aspart 0 units 03/25/25 11:30
Insulin Aspart Low Resistance 300 Units/3 Ml Pen.Injctr SC 04/22/25 11:29
AC TABITHA
Protocol
Polyethylene Glycol 17 grams 03/21/25 21:00
Polyethylene Glycol Powder 17 Grams Packet PO 04/18/25 20:59
DAILYPRN PRN
constipation
Pregabalin 50 mg 03/24/25 22:00 03/24/25 21:59
Pregabalin 50 Mg Capsule PO 04/21/25 21:59 50 mg
HS TABITHA Administration
Senna/Docusate Sodium 1 tablet 03/21/25 21:00
Docusate W/Senna (Sultana-Colace) Tablet PO 04/18/25 20:59
BIDPRN PRN
constipation
Sodium Chloride 0 flush 03/21/25 22:00
Sodium Chloride 0.9% (Flush) Syringe IV 04/18/25 21:59
PER PROTOCOL TABITHA
[2025-03-25 10:10] LABS: Albumin 4.21 g/dL (3.75-5.01); SPEP IFE Reflex Not Done; Total Protein-Electrophoresis 6.9 g/dL (6.3-8.2)
[2025-03-25] MEDS: SOLU-MEDROL 258 MG IV (10:24)
[2025-03-25 12:15] LABS: Glucose - Point of Care 210 mg/dl (70-99)
[2025-03-25] MEDS: NOVOLOG FLEXPEN-LOW RESISTANCE 2 UNITS SC (12:49)
--- NOTE | 2025-03-25 12:54 | W.PN.UPDATE ---
Update Note
Progress Note Update
Relapsing remitting multiple sclerosis
Cervicel demylinating process noted in the the C-spine
Neurology started Solu-medrol x3days
He is currently working on obtaining insurance to have close neuro follow up at an MS clinic
[2025-03-25 13:11] LABS: Syphilis/T. pallidum Ab Reflex Negative (Negative)
--- NOTE | 2025-03-25 14:05 | CM ---
CM following re: discharge planning.
Reviewed pt's chart, met with pt and pt's spouse at bedside.
Pt and OT evaluations noted - pt has no skilled needs. Pt is aware and she stated she has a walker at home.
[facility] following.
D/C plan: home with follow up with [facility] [place] insurance to enroll in insurance plan. Spouse to transport.
[2025-03-25 15:25] VITALS: BP 126/83
--- NOTE | 2025-03-25 16:59 | W.PN.HOSP.TC ---
Addendum entered and electronically signed by Bi Lema MD 03/26/25 12:04:
Relapsing remitting multiple sclerosis
Cervicel demylinating process noted in the the C-spine
Neurology started Solu-medrol x3days
He is currently working on obtaining insurance to have close neuro follow up at an MS clinic
Original Note:
Today's Communication/Plan
-
WBC 20.3 , no fever , will monitor, if fever consider blood culture
follow neurology
Assessment / Plan
Assessment / Plan
29y M with PMH significant for MS - not currently on active treatment - who presents to ED complaining of weakness and paresthesias in the bilateral lower extremities. Patient notes that his symptoms started about one week ago in the LLE and
then RLL up to his upper abdomen with bilateral hands and fingers tinglings and numbness except the thumb and index.
#LE numbness and weakness
-hxt of MS
- due relapsing remitting multiple sclerosis per Cervical spine MRI
-chest x-ray on 03/23/2025 due to chest tightness and was normal, COVID-19 test negative
-MRI brain, C-spine, T-spine,
- no need further imagings L-spine. priority checking C and T-spine MRI as the cervical MRI showing signs of relapsing MS
- IR consult
-monitor CBC and CMP
-Cervical spine MRI: increased size of enhancement within the lesion in the posterior aspect of the cervical cord at the C3-C4 level which likely represents active demyelination in the setting of known MS.
-Thoracic spine MRI: no evidence of demyelinating disease
-neurology consulted:
- start methylprednisolone 1 g IV for 3-day timeframe
- initiate pregabalin 50 mg at bedtime
-no further imaging needed
-CSF fluid analysis, LP done and showed normal CSF analysis
-CSF garm stain preliminary results showed no growth and no WBC, CSF meningitis screening panel negative
-Syphilis, B12 and HIV results pending
-Lyme screening pending
-PT/OT
-Medical records request placed to obtain the patient records from [facility] in [place] where the patient was seeing the neurologist Dr Emerson in 2018.
-He is currently working on obtaining insurance to follow up with neuro at MS clinic
#Leukocytosis
WBC 20.3
No fever
monitor symptoms if fever consider blood culture
Anticipated Discharge: 24 - 48 hours
Subjective/Interval History
-
Date of Service: March 25, 2025
Patient paraesthesia and weaknesses in his lower extremities with stabbing feeling when he walks have been improving and less symptomatic than yesterday. He still has the tinglings sensation in his hands and fingers and the dizziness when he walk
with off balance. No shortness of breath , no nausea , no vomiting , no chills or fever.
Objective Data
-
Labs:
Laboratory Results
03/25/25
05:47
WBC 20.3 H
Hgb 14.0
Hct 39.9
Plt Count 324
Sodium 138
Potassium 4.4
Chloride 109 H
Carbon Dioxide 18 L
BUN 12
Creatinine 0.5 L
Glucose 198 H
Calcium 9.8
Total Bilirubin 0.4
AST 16
ALT 30
Alkaline Phosphatase 97
Vital Signs:
Vital Signs
Temp Pulse Resp BP Pulse Ox
98.7 F 86 16 126/83 95
03/25/25 15:25 03/25/25 15:25 03/25/25 15:25 03/25/25 15:25 03/25/25 15:25
I&O
03/24/25 03/25/25 03/26/25
06:59 06:59 06:59
Intake Total 1400 / 1400 1098 / 1098
Balance 1400 / 1400 1098 / 1098
Review of Systems
-
History Source: Patient
Constitutional: Reports No Symptoms
Respiratory: Reports No Symptoms
Cardiac: Reports No Symptoms
Abdomen/GI: Reports Other (feeling tight sensation in his stomach)
Genitourinary: Reports No Symptoms
Musculoskeletal: Reports Muscle Weakness and Other (back pain at the site of LP)
Skin: Reports Other (hair loss, )
Neuro: Reports No Symptoms
Endocrine: Reports No Symptoms
Physical Exam
-
General: Well Developed and Well Nourished
HEENT: Normocephalic and Atraumatic
Respiratory: Clear to Auscultation
Cardiac: Regular Rhythm and S1/S2
GI: Soft and Nontender
Genito-urinary: No Costovertebral Tender
Musculoskeletal: No Clubbing, No Cyanosis and No Edema
Skin: Warm and Dry
Neuro: Awake, Alert, Oriented, No Motor Deficits and Other (decreases in sensation in lower extremities and left cheek)
Psych: Calm
[2025-03-25 17:19] LABS: Glucose - Point of Care 186 mg/dl (70-99)
[2025-03-25] MEDS: LOVENOX 40 MG SC (17:23)
[2025-03-25] MEDS: NOVOLOG FLEXPEN-LOW RESISTANCE 1 UNITS SC (17:23)
[2025-03-25 19:10] LABS: Angiotensin-1- Converting, CSF 0.4 U/L (0.0-2.5)
[2025-03-25 21:29] LABS: Glucose - Point of Care 196 mg/dl (70-99)
[2025-03-25] MEDS: LYRICA 50 MG PO (21:43)
[2025-03-25 23:11] VITALS: BP 125/69
[2025-03-26 06:57] LABS: Hematocrit 37.4 % (37.0-47.0); Hemoglobin 13.2 g/dL (12.0-16.0); Mean Corp Hgb Conc. 35.3 g/dL (33.0-37.0); Mean Corpuscular Volume 82.6 fL (81.0-99.0); Platelet Count 321 10^3/uL (130-400); Red Cell Dist. Width 12.5 % (11.5-14.5)
[2025-03-26 07:18] LABS: ALT (SGPT) 26 U/L (0-35); AST (SGOT) 13 U/L (14-36); Albumin 4.4 g/dl (3.5-5.0); Alkaline Phosphatase 70 U/L (38-126); Blood Urea Nitrogen 14 mg/dl (7-17); Calcium 9.8 mg/dl (8.4-10.2); Carbon Dioxide 21 mmol/L (22-30); Chloride 107 mmol/L (98-107); Estimated Creatinine Clearance > 125 ml/min; Glucose 226 mg/dl (70-99); Potassium 4.1 mmol/L (3.5-5.1); Sodium 138 mmol/L (135-145); Total Protein 7.4 g/dl (6.3-8.2); eGFR > 60.00
[2025-03-26 07:29] VITALS: BP 130/67
[2025-03-26 07:29] LABS: Glucose - Point of Care 162 mg/dl (70-99)
[2025-03-26 07:38] LABS: Nucleated Red Blood Cells % 0 %
[2025-03-26] MEDS: NOVOLOG FLEXPEN-LOW RESISTANCE 1 UNITS SC ×2 (08:33→12:09)
[2025-03-26 08:55] LABS: Albumin, CSF 24 mg/dL (0-35); Albumin, Serum 3798 mg/dL (3500-5200); IgG, CSF 4.7 mg/dL (0.0-6.0)
--- NOTE | 2025-03-26 10:29 | W.PN.HOSP.TC ---
Addendum entered and electronically signed by Bi Lema MD 03/26/25 12:05:
Relapsing remitting multiple sclerosis
Cervicel demylinating process noted in the the C-spine
Today is final day 3/3 of solumedrol
-Per neuro no tapering steroid dose needed
He is currently working on obtaining insurance to have close neuro follow up at an MS clinic
Original Note:
Today's Communication/Plan
-
Confirmed with neurology, okay for discharge
Assessment / Plan
Assessment / Plan
29y M with H significant for MS - not currently on active treatment - who presents to ED complaining of weakness and paresthesias in the bilateral lower extremities. Patient notes that his symptoms started about one week ago in the LLE and
then RLL up to his upper abdomen with bilateral hands and fingers tinglings and numbness except the thumb and index.
#LE numbness and weakness secondary to relapsing remitting multiple sclerosis
-Known history of MS
-MRI consistent with cervical demyelinating process at the level of C3-C4
-Neurology consult appreciated-received 3 doses of IV methylprednisone, reports significant improvement, able to walk on his legs without feeling needles in his feet
-Continue pregabalin as recommended by neuro
- All other testing including CSF analysis, syphilis, B12, HIV, Lyme disease normal
-Syphilis, B12 and HIV results pending
- PT OT suggests no need of skilled rehab, as per immigration case manager patient to be discharged home and would follow-up with [employer] [place] insurance to enroll in insurance plan
Will follow-up with neurology on outpatient basis to discuss cladribine
- Okay to discharge as per neuro
#Leukocytosis
Reactive to steroids
DVT prophylaxis-enoxaparin
CODE STATUS-full code
Anticipated Discharge: Today
Subjective/Interval History
-
Date of Service: March 26, 2025
Patient seen and examined at bedside
Feeling better, reports he has been working with physical therapy and is now able to put his feet down without feeling uncomfortable
Reports decrease in intensity of symptoms
Denies any other issues
Objective Data
-
Labs:
Laboratory Results
03/26/25
06:27
WBC 24.0 H
Hgb 13.2
Hct 37.4
Plt Count 321
Sodium 138
Potassium 4.1
Chloride 107
Carbon Dioxide 21 L
BUN 14
Creatinine 0.5 L
Glucose 226 H
Calcium 9.8
Total Bilirubin 0.6
AST 13 L
ALT 26
Alkaline Phosphatase 70
Vital Signs:
Vital Signs
Temp Pulse Resp BP Pulse Ox
98.8 F 68 16 130/67 96
03/26/25 07:29 03/26/25 07:29 03/26/25 07:29 03/26/25 07:29 03/26/25 07:29
I&O
03/25/25 03/26/25 03/27/25
06:59 06:59 06:59
Intake Total 1098 / 1098 600 / 600
Balance 1098 / 1098 600 / 600
Review of Systems
-
All other systems: Reviewed and negative
Physical Exam
-
General: Well Developed, Well Nourished and No Apparent Distress
HEENT: Normocephalic, Moist Mucous Membranes and Anicteric
Respiratory: Clear to Auscultation; Negative Wheezes, Rales or Rhonchi
Cardiac: Regular Rhythm and S1/S2
GI: Soft, Nontender and Normal Bowel Sounds
Musculoskeletal: No Clubbing and No Cyanosis
Skin: Warm and Dry
Neuro: Awake, AO x 3, No Motor Deficits (Normal tone, and able to move all extremities spontaneously) and Other (Reports numbness/tingling ascending from lower limbs up to the level of xiphoid process)
Psych: Calm
[2025-03-26] MEDS: SOLU-MEDROL 258 MG IV (10:38)
--- NOTE | 2025-03-26 10:38 | CM ---
CM following re: discharge planning.
Reviewed pt's chart, met with pt.
Discharge order noted. Pt is aware and she stated her spouse will transport home.
Pt and OT evaluations noted - pt has no skilled needs. Pt is aware and she stated she has a walker at home.
D/C plan: home with follow up with [facility] insurance to enroll in insurance plan. Spouse to transport.
--- NOTE | 2025-03-26 10:40 | W.DCSUMMARY ---
Discharge Summary
Discharge Data
Date of Admission: 03/21/25
Date of Discharge: 03/26/25
-
Pending Results: No
Hospital Course
Discharging Physician :
Bi Lema
Disposition :
Home
Primary care physician :
None
Principal Discharge diagnosis :
Relapsing and remitting multiple sclerosis
Chronic Discharge diagnosis :
Multiple sclerosis
Hospital Course :
This is a 29-year-old right-handed man admitted to [facility] with sensory deficits on 03/21/2025. He experienced numbness from the knee down on the left side which prompted visit to the ER and was discharged on oral prednisone taper however the symptoms
progressed with numbness spreading to the right side and extending upwards accompanied by a pretty needle sensation. MRI of cervical and thoracic spine done that showed demyelinating lesion at the level of C3-C4. Neurology was consulted who
started high-dose prednisone for 3 days and gabapentin for neuropathic pain.They also added vitamin D and iron supplementation. Patient reported significant improvement in his symptoms and worked with physical therapy during the hospital stay and
is now able to ambulate comfortably.
He was also tested with CSF analysis which was normal, syphilis, negative vitamin B12, levels normal HIV and Lyme serology negative.
Patient is interested in initiating cladribine as outpatient for control of her MS which he would discuss with neurology on outpatient basis.
PT OT suggests no need of skilled rehab, as per rehabilitation caseworker patient to be discharged home and would follow-up with [facility] insurance to enroll in insurance plan
Important imaging findings :
03/23/2025
-Cervical spine MRI: increased size of enhancement within the lesion in the posterior aspect of the cervical cord at the C3-C4 level which likely represents active demyelination in the setting of known MS.
-Thoracic spine MRI: no evidence of demyelinating disease
-Chest x-ray
FINDINGS: The lungs appear clear. The cardiac silhouette, vascular markings, and mediastinal shadow appear normal.
IMPRESSION:
No evidence of active cardiopulmonary disease.
Procedure findings :
CSF analysis-no abnormal findings
Discharge Plan
-
Patient Disposition: Home (Routine Discharge)
Discharge Diagnosis/Procedures: Relapsing remitting multiple sclerosis/Cervicel demylinating process noted in the the C-spine
Condition: Fair
Diet: Regular
Activity: As tolerated
Driving Restrictions: As prior to admission
Bathing Restrictions: OK to Shower
Referrals:
Ama Wells MD, Resident [Family Practice Resident Year1, General] - in less than 1 week
Anabelle Tse MD [Active, Neurology] - As needed
UNKNOWN - PT DOES,NOT KNOW [Family Provider]
Additional Discharge Medication Instructions: Added pregabalin 50 mg at night for Neuropathy
Steroid taper discontinued as per neuro
Prescriptions:
New
pregabalin 50 mg Capsule
50 mg PO HS 30 Days Qty: 30 0RF
Continued
cholecalciferol (vitamin D3) 50 mcg (2,000 unit) Tablet
50 mcg PO DAILY Qty: 100 0RF
ferrous sulfate [Iron (ferrous sulfate)] 325 mg (65 mg iron) Tablet
325 mg PO DAILY
testosterone cypionate 200 mg/mL Oil
100 mg IM MO@1900
acetaminophen [Tylenol Extra Strength] 500 mg Tablet
1,000 mg PO Q6HPRN PRN (Reason: mild pain)
Discontinued
prednisone 10 mg Tablet
See Rx Instructions .ROUTE .COMPLEX Qty: 45 0RF
Rx Instructions:
Take By Mouth:
50 mg daily x3 days, 40 mg daily x3 days,
30 mg daily x3 days, 20 mg daily x3 days,
10 mg daily x3 days
Discharge Orders:
Discharge Patient (As Directed); Ordered 03/26/25
Ordered By: Liane Cotto
Discharge Date and Time
Print Language: GREEK
--- NOTE | 2025-03-26 11:54 | PTCARENOTE ---
Patient OOb with supervision. Patient continues to have B/L LE weakness and decreased sensation (pins & needles). Patient denies need for pain medication at present. Patient requesting medication to help with shooting pain in legs when sleeping.
Patient will be discharged with a script for Pregabalin. Patient verbalized understanding.
[2025-03-26 12:01] LABS: Glucose - Point of Care 197 mg/dl (70-99)
[2025-03-26 12:45] VITALS: BP 135/70
[2025-03-26 15:00] LABS: Paraneoplastic Ab IgG, CSF None Detected (None Detected)
--- NOTE | 2025-03-26 19:13 | PTCARENOTE ---
Patient called to floor after discharge, because he was unable to pick remover his prescription for Pregabalin 50mg PO HS. [facility] pharmacy has it in pending status. RN called [facility] pharmacy to clarify reason for pending status. Pharmacist states, 'Pregabalin
is a controlled substance and therefore needs a diagnosis code on the prescription.' RN TT physician and resident to resend prescription with a diagnosis code. Patient was called and updated.
[2025-03-26 20:10] LABS: Lyme Disease DNA by PCR Not Detected; Lyme Source CSF
== END 2025-03-26 14:02 | disposition home or self-care (01) | DRG 60 ==
LOC: 2 NORTH 20:37
PROVIDERS: Emergency Medicine; Nurse Practitioner Family; Psychiatry & Neurology Neurology; Radiology Vascular & Interventional Radiology; Specialist Research Data Abstracter/Coder; ADMITTING PHYSICIAN Hospitalist; ATTENDING PHYSICIAN Hospitalist; CONSULT PHYSICIAN Psychiatry & Neurology Neurology; EMERGENCY PHYSICIAN Emergency Medicine
PROC: 009U3ZX Drainage of Spinal Canal, Percutaneous Approach, Diagnostic (ICD-10-PCS; 2025-03-22)
DX: G35 Multiple sclerosis (principal); G43.909 Migraine, unspecified, not intractable, without status migrainosus; E61.1 Iron deficiency; E55.9 Vitamin D deficiency, unspecified; H54.62 Unqualified visual loss, left eye, normal vision right eye; J45.909 Unspecified asthma, uncomplicated; D72.829 Elevated white blood cell count, unspecified; F64.0 Transsexualism; Z87.891 Personal history of nicotine dependence; Z11.52 Encounter for screening for COVID-19; Z79.899 Other long term (current) drug therapy
CPT/HCPCS: 62328; 71045; 72156; 72157; 80048; 80053; 80306; 80307; 82040; 82042; 82164; 82607; 82728; 82784; 82945; 82962; 83873; 83916; 84155; 84157; 84165; 84425; 84703; 85025; 85610; 85652; 86038; 86140; 86255; 86618; 86780; 87015; 87070; 87205; 87389; 87476; 87483; 87502; 87811; 89051; 94640; 97162; 97166; 97530; 99285; A9575